=== PATIENT | male | born 1955 | race Two or more races ===

== ENCOUNTER 2025-04-27 21:32 | Inpatient (IN) | payer MEDICARE, MEDICAID ==
[~2025-04-27] VITALS: Ht 172.7 cm; Wt 84.7 kg
[2025-04-27 22:11] VITALS: PULSE 106; RESP 13; O2SAT 95
--- NOTE | 2025-04-27 22:11 | ED.PDOC ---
GI ASSESSMENT HPI Comments 69-year-old male with no past medical history was BIBA to the ER for the evaluation of generalized weakness, and black tarry stools for the past 3 days. EMS was called as the patient was found unresponsive, breathing agonal, has been experiencing intractable nausea and vomiting for the past 3 days and has been going up blackish substance, so has been experiencing black tarry stools for similar duration. EMS reports that patient's blood pressure was 60/40 mmHg on arrival, pulse was 120s, he was saturating 90s, patient received 1 L bolus and blood pressure improved to 84/60s mmHg, patient was A&O x4 per EMS, reported taking ibuprofen for the past 3 days every 4 hourly. Denies smoking or drinking, quit drinking 3 years back. On arrival to the ER, patient's systolic blood pressure was in 80s, pulse 110s, , and he was requiring 4 L oxygen supplementation. Patient is A&O x3, GCS 15/15, 2 L bolus administered in ER, 1 L by EMS Attestation note: Dr. Chan: I was the supervising attending for this ED encounter. Please see the resident's notes. I was available for questions and consultations. Differential diagnosis: As far as generalized weakness: Includes but not limited to thyroid disease, encephalopathy, electrolyte abnormality, sepsis, infection, intracranial pathology, drug adverse effects, arrhythmia, kidney insufficiency, ACS, CVA, malignancy, anemia As far as GI bleed: Diverticulitis, colitis, fistula, neoplasm, hemorrhoids, anal fissures, constipation, Crohn's disease, ulcerative colitis MDM: MDM: patient presented with the above HPI.--generalized weakness/GI bleed----workup was initiated. patient was found with the above mentioned diagnosis. the following medications were ordered: please refer to order lists of meds and tests obtained by myself Dr. Chan. Patient ED course and VS have been stabilized. Patient has been reassessed in the ED and remained in a stable condition. Pertinent incidental findings were discussed with the patient and/or family. Patient/family voices understanding and is agreeable with plan. Patient has been observed in the ED adequate length of time to insure improvement/stability. Escalation of care considered: Consideration of escalation to observation or admission Blood transfusion initiated, patient was given Protonix and fluids. Patient was ADMITTED to the medicine team for further evaluation and treatment of their presentation. All the reports of any imaging studies that were ordered by myself were reviewed by myself. Chief Complaint: GI Bleed Time Seen by MD: 21:47 Reviewed Notes: Nurses Notes, Barista Notes Allergies: Coded Allergies: NO KNOWN ALLERGIES (Unverified , 04/27/25) Information Source: Patient Mode of Arrival: EMS Timing: Days Constitutional: reports: chills, fatigue, fever EENTM: denies: blurred vision, double vision, ear bleeding, ear discharge, ear drainage, ear pain, ear ringing, eye pain, eye redness, hearing loss, mouth pain, mouth swelling, nasal discharge, nose bleeding, nose congestion, nose pain, photophobia, tearing, throat pain, throat swelling, voice changes, others Respiratory: reports: cough Cardiovascular: reports: edema Gastrointestinal: reports: abdominal pain, diarrhea, hematemesis, melena, nausea Genitourinary: denies: burning, dysuria, flank pain, frequency, hematuria, incontinence, penile discharge, penile sore, pain, testicle pain, testicle swelling, urgency, others Neurological: denies: dizziness, fainting, headache, left sided numbness, left sided weakness, numbness, paresthesia, pre-existing deficit, right sided numbn ess, right sided weakness, seizure, speech problems, tingling, tremors, weakness, others Musculoskeletal: denies: back pain, gout, joint pain, joint swelling, muscle pain, muscle stiffness, neck pain, others Integumetry: denies: bruises, change in color, change in hair/nails, dryness, laceration, lesions, lumps, rash, wounds, others Allergic/Immunocompromised: denies: Difficulty Healing, Frequent Infections, Hives, Itching, others Hematologic/Lymphatic: denies: anemia, blood clots, easy bleeding, easy bruising, swollen glands, others Endocrine: denies: excessive hunger, excessive sweating, excessive thirst, excessive urination, flushing, intolerance to cold, intolerance to heat, unexplained weight gain, unexplained weight loss, others Psychiatric: denies: anxiety, bipolar disorder, depression, hopeless, panic disorder, schizophrenia, sleepless, suicidal, others Physical Exam General Appearance: Moderate Distress HEENT: Pharynx Normal Neck: NOT DONE Respiratory: Decreased Breath Sounds Cardiovascular: Tachycardia, Other (Pedal edema) Breast Exam: Deferred Gastrointestinal: Non Tender, Normal Bowel Sounds Genitalia: Deferred Pelvic: Deferred Rectal: Deferred Extremities: Leg edema, No calf tenderness, Non-tender Neurologic: Alert, Normal Mood Cerebellar Function: NOT DONE Reflexes: None Skin: NOT DONE Lymphatic: NOT DONE Was a procedure done? Was a procedure done?: No GI differential Dx Differential Diagnosis: Gastritis/PUD, Gastroenteritis, GI hemorrhage, Ischemic Bowel, Pancreatitis, Hypovolemia X-Ray, Labs, Meds, VS Vital Signs Date Time Temp Pulse Resp B/P (MAP) Pulse Ox O2 Delivery O2 Flow Rate FiO2 04/27/25 23:00 98 18 116/59 (78) 100 04/27/25 22:11 106 13 95 Nasal Cannula* 4 36 04/27/25 22:05 97.8 107 13 119/59 (79) 95 97.8 04/27/25 21:46 97.7 110 12 85/38 93 97.7 04/27/25 21:38 97 Lab Test 04/28/25 00:27 04/27/25 23:27 04/27/25 22:02 Range/Units Lactic Acid Level 2.3 *H 3.3 *H 0.4-2.0 mmol/L Urine Color Colorless Yellow Urine Clarity Turbid H Clear Urine pH 6.0 5.0-9.0 Urine Specific [place] 1.015 1.001-1.035 Urine Protein 1+ H Negative Urine Ketones Negative Negative Urine Blood 1+ H Negative /uL Urine Nitrite Negative Negative Urine Bilirubin Negative Negative Urine Urobilinogen Normal Negative mg/dL Urine Leukocyte Esterase Negative Negative /uL Urine Glucose 1+ H Normal mg/dL Urine Opiates Screen Neg NEGATIVE Urine Fentanyl Screen Neg NEGATIVE Urine Barbiturates Screen Neg NEGATIVE Urine Phencyclidine Screen Neg NEGATIVE Urine Amphetamines Screen Neg NEGATIVE Urine Benzodiazepines Screen Neg NEGATIVE Urine Cocaine Screen Neg NEGATIVE Urine Cannabinoids Screen Neg NEGATIVE White Blood Count 11.3 H 4.4-10.8 10^3/uL Red Blood Count 1.81 L 4.5-5.90 10^6/uL Hemoglobin 5.9 *L 13.5-17.5 g/dL Hematocrit 18.1 L 41.0-53.0 % Mean Corpuscular Volume 99.7 80.0-100.0 fL Mean Corpuscular Hemoglobin 32.5 H 28.0-32.0 pg Mean Corpuscular Hemoglobin Concent 32.6 32.0-36.0 g/dL Red Cell Distribution Width 15.7 H 11.8-14.3 % Platelet Count 126 L 140-450 10^3/uL Mean Platelet Volume 9.1 6.9-10.8 fL Neutrophils (%) (Auto) 85.5 H 37.0-80.0 % Lymphocytes (%) (Auto) 8.0 L 10.0-50.0 % Monocytes (%) (Auto) 5.8 0.0-12.0 % Eosinophils (%) (Auto) 0.3 0.0-7.0 % Basophils (%) (Auto) 0.4 0.0-2.0 % Neutrophils # (Auto) 9.7 H 1.6-8.6 10 ^3/uL Lymphocytes # (Auto) 0.9 0.4-5.4 10 ^3/uL Monocytes # (Auto) 0.7 0-1.3 10 ^3/uL Eosinophils # (Auto) 0 0-0.8 10 ^3/uL Basophils # (Auto) 0 0-0.2 10 ^3/uL Nucleated Red Blood Cells 0.1 % Platelet Estimate Decreased Anisocytosis (manual) Slight Prothrombin Time 12.2 H 9.3-11.8 sec Prothrombin Time INR 1.17 H 0.9-1.15 Activated Partial Thromboplast Time 22.7 L 24.5-34.5 SEC Sodium Level 147 H 136-145 mmol/L Potassium Level 4.1 3.5-5.1 mmol/L Chloride Level 113 H 98-107 mmol/L Carbon Dioxide Level 23 20-31 mmol/L Anion Gap 11 5-15 Blood Urea Nitrogen 26 H 9-23 mg/dL Creatinine 1.05 0.700-1.30 mg/dL Glomerular Filtration Rate Calc 76 >90 mL/min BUN/Creatinine Ratio 24.8 H 10.0-20.0 Serum Glucose 149 H 74-106 mg/dL Calcium Level 7.4 L 8.7-10.4 mg/dL Total Bilirubin 0.2 0.2-1.0 mg/dL Aspartate Amino Transferase (AST) 20 13-40 U/L Alanine Aminotransferase (ALT) 20 7-40 U/L Alkaline Phosphatase 41 L 46-116 U/L Troponin I High Sensitivity 11 </=54 ng/L Total Protein 4.6 L 5.7-8.2 g/dL Albumin 2.7 L 3.2-4.8 g/dL Lipase 22 12-53 U/L Microbiology Date/Time Source Procedure Growth Status 04/27/25 22:02 Blood Blood Culture - Final NO GROWTH AFTER 5 DAYS OF INCUBATION. Complete 04/27/25 22:02 Blood Blood Culture - Final NO GROWTH AFTER 5 DAYS OF INCUBATION. Complete [facility] [id number] [address] Ph: [phone] DIAGNOSTIC IMAGING Diagnostic Imaging Report : [id number] Signed PATIENT: DARLENE CHAVIS ACCT: [id number] UNIT: [id number] : 1955 LOC: OVERFLOW ROOM / BED: [address] [place] [address] AGE / SEX: 69 / M ADM STATUS: ADM IN SERVICE 45 ORDERING PHYSICIAN: JOSÉ MANUEL MONTEZ RESIDENT PROCEDURE(s): ABPL - CT AB PEL WO CON-NO ORAL OR IV REASON: abd pain ORDER NUMBER(s): [id number], ACCESSION NUMBER(s): [id number] Exam: CT CT AB PEL WO CON-NO ORAL OR IV History: abd pain Comparison Study: None Technique: Multidetector spiral CT of the abdomen was performed from lung bases to pubic symphysis. Imaging was performed without IV contrast. Axial, coronal and sagittal multiplanar reformats were obtained from the axial data set by the technologist. Radiation Dose : 1. Abdomen/Pelvis: CTDIvol 7.45 mGy, DLP 396.72 mGy*cm. Findings: Evaluation of solid organs is limited due to lack of intravenous contrast use. Lower Chest: Patchy consolidations within the hmhob-ddeijhe-bxrn-left lower lobes. Normal heart size. Liver: Unremarkable. Gallbladder and Biliary Tree: Unremarkable Pancreas: Mild atrophy. Spleen: Unremarkable. Adrenal Glands: Unremarkable. Kidneys/Ureters: No urinary stone or obstruction. Bladder: Grossly unremarkable for degree of distention. Pelvic Organs: Unremarkable as visualized. Bowel: No bowel wall thickening or obstruction. Heterogeneous stomach contents appear to represent ingested material. No evidence of appendicitis. Distal colonic diverticulosis. Vasculature: Moderate atherosclerosis with infrarenal aortic ectasia. Lymphadenopathy: No obvious adenopathy. Peritoneum: No ascites, free air, or fluid collection. Abdominal Wall: No significant hernia. Musculoskeletal: No acute findings. Degenerative change of the spine and pelvis. IMPRESSION: 1. Feuvu-allshba-bmua-left basilar airspace disease suggesting multifocal pneumonia or aspiration pneumonitis. 2. No acute abdominopelvic findings within the limitations of a noncontrast exam. 3. Colonic diverticulosis. Radiation optimization: All CT scans at this facility use at least one of these dose optimization techniques: automated exposure control mA and/or kV adjustment per patient size (includes targeted exams where dose is matched to clinical indication) or iterative reconstruction. ATED BY: MATTEO HYATT MD DICTATED DATE/TIME: 04/28/25209 SIGNED BY: MATTEO HYATT MD SIGNED DATE/TIME: 04/28/25209 CC: X-Ray, Labs, Meds, VS Comment CT abdomen pelvis without contrast pending Chest x-ray pending at this time 3 units packed RBCs ordered IV Zosyn started 3 L bolus administered Time of 1ST Reevaluation: 00:00 Reevaluation 1ST: Improved (Blood pressure improved) Consultation: PCP Patient Education/Counseling: Diagnosis, Treatment, Prognosis, Need For Follow Up Family Education/Counseling: No Family Present SEPSIS Sepsis Screen Date sepsis recognized/suspect: Apr 27, 2025 Time Sepsis recognized/suspect: 2153 Recent Procedure: No On Antibiotic Therapy: No Respiratory Rate >20: No Heart Rate >90: Yes Temp<36 C (96.8 F) or >38.3 C: No SBP <90 or MAP <65 mmHG: No New Acute Mental Status Change: No Is the patient on CPAP, BIPAP,: No Physician Orders Electrocardigram (04/27/25 21:46) Ct Ab Pel Wo Con-No Oral Or Iv (04/27/25 21:46) Chest Xray 1 View (04/27/25 22:09) Initiate Sepsis Protocol (04/27/25 ) Sepsis (04/27/25 23:05) Vital Signs Date Time Temp Pulse Resp B/P (MAP) Pulse Ox O2 Delivery O2 Flow Rate FiO2 04/27/25 23:00 98 18 116/59 (78) 100 04/27/25 22:11 106 13 95 Nasal Cannula* 4 36 04/27/25 22:05 97.8 107 13 119/59 (79) 95 97.8 04/27/25 21:46 97.7 110 12 85/38 93 97.7 04/27/25 21:38 97 Laboratory Tests Test 04/27/25 22:02 04/28/25 00:27 Lactic Acid Level 3.3 mmol/L (0.4-2.0) *H 2.3 mmol/L (0.4-2.0) *H White Blood Count 11.3 10^3/uL (4.4-10.8) H Departure 1 Departure Time of Disposition: 23:46 Impression: Primary Impression: GI bleed Additional Impressions: Hemorrhagic shock Abdominal pain Hypoalbuminemia Blood loss anemia Pneumonia Thrombocytopenia Disposition: 09 ADMITTED INPATIENT Admit to: [facility] Condition: Guarded Discharged With: Self Critical Care Note Critical Care Time?: Yes (1 hr-critical care time only) Stability Stability form required: No Heart Score Heart Score: Heart Score Response (Comments) Value History N/A 0 EKG N/A 0 Age N/A 0 Risk Factors N/A 0 Troponin N/A 0 Total 0 JOSÉ MANUEL MONTEZ RESIDENT Apr 27, 2025 22:11 HALEIGH CHAN DO Apr 27, 2025 23:48
[2025-04-27] MEDS: SODIUM CHLORIDE 0.9% 2,000 ML IV ONE ×2 (22:15→23:10)
[2025-04-27] MEDS: PANTOPRAZOLE 40 MG/10 ML VIAL INJ IV ONE (22:15)
[2025-04-27 22:36] LABS: Hematocrit 18.1 % (41.0-53.0); Mean Corpuscular Hemoglobin 32.5 pg (28.0-32.0); Mean Corpuscular Volume 99.7 fL (80.0-100.0); Nucleated Red Blood Cells % 0.1 %
[2025-04-27 22:50] LABS: Hemoglobin 5.9 g/dL (13.5-17.5)
[2025-04-27 23:00] LABS: Alanine Aminotransferase 20 U/L (7-40); Anion Gap 11 (5-15); BUN/Creatinine Ratio 24.8 (10.0-20.0); Carbon Dioxide 23 mmol/L (20-31); Lipase 22 U/L (12-53); Potassium 4.1 mmol/L (3.5-5.1)
[2025-04-27 23:02] LABS: Lactic Acid w/Reflex 3.3 mmol/L (0.4-2.0)
[2025-04-27 23:04] LABS: Albumin 2.7 g/dL (3.2-4.8); Alkaline Phosphatase 41 U/L (46-116); Bilirubin, Total 0.2 mg/dL (0.2-1.0); Blood Urea Nitrogen 26 mg/dL (9-23); Calcium 7.4 mg/dL (8.7-10.4); Chloride 113 mmol/L (98-107); Glucose 149 mg/dL (74-106); Sodium 147 mmol/L (136-145); Total Protein 4.6 g/dL (5.7-8.2)
[2025-04-27 23:15] LABS: Anisocytosis Slight
[2025-04-27 23:51] LABS: Urine Protein, UAD 1+ (Negative)
[2025-04-28] VITALS (15 sets, daily range): BP systolic 103–145; BP diastolic 50–94; PULSE 84–117; RESP 13–18; TEMP 97.6–99.6; O2SAT 95–100
[2025-04-28] MEDS: ALBUMIN 25% 100 ML IV ONE
[2025-04-28] MEDS: PIPERACILLIN-TAZOB 3.375GM 100 ML IV ONE
[2025-04-28 00:07] LABS: Barbiturate Scree,Urine Neg (NEGATIVE); Opiate Scree,Urine Neg (NEGATIVE); Phencyclidine Screen, Urine Neg (NEGATIVE)
[2025-04-28 00:08] LABS: Amphetamine Screen, Urine Neg (NEGATIVE); Benzodiazephine Screen, Urine Neg (NEGATIVE); Cannabinoid Screen, Urine Neg (NEGATIVE); Cocaine Screen, Urine Neg (NEGATIVE)
[2025-04-28] MEDS ORDERED: MORPHINE SULFATE INJ 2 MG/ml SYRG IV PRN (00:45)
[2025-04-28] MEDS ORDERED: NITROGLYCERIN 0.4 MG SL TAB SL PRN (00:45)
[2025-04-28] MEDS: PANTOPRAZOLE 40mg/50ML NS AE 50 ML IV SCH ×2 (01:08→14:15)
[2025-04-28 01:12] LABS: INR 1.17 (0.9-1.15); Partial Thromboplastin Time 22.7 SEC (24.5-34.5); Prothrombin Time 12.2 sec (9.3-11.8)
--- NOTE | 2025-04-28 01:32 | DVH ---
CHEST RADIOGRAPH Indication: hypoxic Technique: Single frontal view of the chest was obtained COMPARISON: None FINDINGS: Lines and Tubes: None Lungs: Chronic appearing bilateral interstitial pulmonary markings. No evidence of focal consolidati on. Pleura: No effusion. No pneumothorax. Cardiomediastinal contours: Unremarkable Bones: Unremarkable IMPRESSION: 1. Chronic appearing bilateral interstitial pulmonary markings. 2. No evidence of acute cardiopulmonary process.
--- NOTE | 2025-04-28 02:12 | DVH ---
Exam: CT CT AB PEL WO CON-NO ORAL OR IV History: abd pain Comparison Study: None Technique: Multidetector spiral CT of the abdomen was performed from lung bases to pubic symphysis. I maging was performed without IV contrast. Axial, coronal and sagittal multiplanar reformats were obta ined from the axial data set by the technologist. Radiation Dose : 1. Abdomen/Pelvis: CTDIvol 7.45 mGy, DLP 396.72 mGy*cm. Findings: Evaluation of solid organs is limited due to lack of intravenous contrast use. Lower Chest: Patchy consolidations within the qfnid-krhtimc-ccrt-left lower lobes. Normal heart size . Liver: Unremarkable. Gallbladder and Biliary Tree: Unremarkable Pancreas: Mild atrophy. Spleen: Unremarkable. Adrenal Glands: Unremarkable. Kidneys/Ureters: No urinary stone or obstruction. Bladder: Grossly unremarkable for degree of distention. Pelvic Organs: Unremarkable as visualized. Bowel: No bowel wall thickening or obstruction. Heterogeneous stomach contents appear to represent i ngested material. No evidence of appendicitis. Distal colonic diverticulosis. Vasculature: Moderate atherosclerosis with infrarenal aortic ectasia. Lymphadenopathy: No obvious adenopathy. Peritoneum: No ascites, free air, or fluid collection. Abdominal Wall: No significant hernia. Musculoskeletal: No acute findings. Degenerative change of the spine and pelvis. IMPRESSION: 1. Stwfi-xhztkvw-xqkn-left basilar airspace disease suggesting multifocal pneumonia or aspiration pne umonitis. 2. No acute abdominopelvic findings within the limitations of a noncontrast exam. 3. Colonic diverticulosis. Radiation optimization: All CT scans at this facility use at least one of these dose optimization som hniques: automated exposure control mA and/or kV adjustment per patient size (includes targeted exam s where dose is matched to clinical indication) or iterative reconstruction.
--- NOTE | 2025-04-28 05:03 | DVHHP2 ---
History of Present Illness Reason for Visit: GI bleed History of Present Illness 69-year-old male presents for evaluation of GI bleed. Patient reports a three day history of having black tarry stools. Over the past couple of days he has been vomiting coffee-ground emesis as well. Denies abdominal pain. No fever or chills. Past Medical History Denies Past Surgical History Denies Family History Noncontributory Smoke: No ALCOHOL: none Drugs: None Lives: with Family Review of Systems Review of Systems Constituitional: Negative for fever HENT: Negative for Headache, Negative for Sore Throat Eyes: Negative for pain and change in vision Respirartory: Negative for Shortness of Breath Cardiovascular: Negative for Chest Pain Gastrointestinal: Negative for abdominal pain, swelling Endocrine: Negative for polyuria, Polydipsia Genitourinary: Negative for dysuria Musculoskeletal: Negative for skeletal pain Skin Negative for rash Neurological: Negative for headache and weakness All other systems reviewed and negative are negative otherwise addressed in HPI. Allergies: Coded Allergies: NO KNOWN ALLERGIES (Unverified , 04/27/25) Medications Current Medications Medications Dose Ordered Sig/Dorene Route Start Time Stop Time Status Last Admin Dose Admin Nitroglycerin 0.4 mg Q5MINP PRN SL 04/28/25 00:45 Morphine Sulfate 2 mg Q30M PRN IV 04/28/25 00:45 Pantoprazole Sodium 50 ml @ 10 mls/hr Q5H IV 04/28/25 00:45 04/28/25 01:08 10 MLS/HR Ceftriaxone Sodium 50 ml @ 100 mls/hr DAILY@09 IV 04/28/25 09:00 Ondansetron HCl 4 mg Q4HP PRN IV 04/28/25 00:45 Azithromycin 250 ml @ 125 mls/hr DAILY IV 04/28/25 10:00 Exam Vital Signs Vital Signs Date Time Temp Pulse Resp B/P (MAP) Pulse Ox O2 Delivery O2 Flow Rate FiO2 04/28/25 04:25 98.6 87 16 126/63 98.6 04/28/25 03:04 100 Nasal Cannula* 2 28 Exam Gen: 69-year-old male in mild distress. Skin: Warm, dry, normal color and texture, no rash. HEENT: Normocephalic atraumatic, mucous membranes moist and pink. Neck: Cervical and supraclavicular nodes normal without enlargement, trachea is midline, thyroid gland is normal without masses. Pulmonary: Clear to auscultation and percussion bilaterally. Cardiac: Regular rate and rhythm. No murmur Abdomen: Soft, nontender, nondistended, bowel sounds present all 4 quadrants, no guarding, no rigidity, no organomegaly. Extremities: No cyanosis, clubbing, no edema Neuro: Cranial nerves II through XII grossly intact, normal affect and speech, no focal motor deficits. Labs/Xrays ORDERING PHYSICIAN: JOSÉ MANUEL MONTEZ RESIDENT PROCEDURE(s): ABPL - CT AB PEL WO CON-NO ORAL OR IV REASON: abd pain ORDER NUMBER(s): [id number], ACCESSION NUMBER(s): [id number] Exam: CT CT AB PEL WO CON-NO ORAL OR IV History: abd pain Comparison Study: None Technique: Multidetector spiral CT of the abdomen was performed from lung bases to pubic symphysis. Imaging was performed without IV contrast. Axial, coronal and sagittal multiplanar reformats were obtained from the axial data set by the technologist. Radiation Dose : 1. Abdomen/Pelvis: CTDIvol 7.45 mGy, DLP 396.72 mGy*cm. Findings: Evaluation of solid organs is limited due to lack of intravenous contrast use. Lower Chest: Patchy consolidations within the phdqx-bilkwuv-bhuk-left lower lobes. Normal heart size. Liver: Unremarkable. Gallbladder and Biliary Tree: Unremarkable Pancreas: Mild atrophy. Spleen: Unremarkable. Adrenal Glands: Unremarkable. Kidneys/Ureters: No urinary stone or obstruction. Bladder: Grossly unremarkable for degree of distention. Pelvic Organs: Unremarkable as visualized. Bowel: No bowel wall thickening or obstruction. Heterogeneous stomach contents appear to represent ingested material. No evidence of appendicitis. Distal colonic diverticulosis. Vasculature: Moderate atherosclerosis with infrarenal aortic ectasia. Lymphadenopathy: No obvious adenopathy. Peritoneum: No ascites, free air, or fluid collection. Abdominal Wall: No significant hernia. Musculoskeletal: No acute findings. Degenerative change of the spine and pelvis. IMPRESSION: 1. Sezcu-cftowit-anam-left basilar airspace disease suggesting multifocal pneumonia or aspiration pneumonitis. 2. No acute abdominopelvic findings within the limitations of a noncontrast exam. 3. Colonic diverticulosis. Radiation optimization: All CT scans at this facility use at least one of these dose optimization techniques: automated exposure control mA and/or kV adjustment per patient size (includes targeted exams where dose is matched to clinical indication) or iterative reconstruction. ATED BY: MATTEO HYATT MD ORDERING PHYSICIAN: JOSÉ MANUEL MONTEZ RESIDENT PROCEDURE(s): CXR1 - CHEST XRAY 1 VIEW REASON: hypoxic ORDER NUMBER(s): [id number], ACCESSION NUMBER(s): [id number] CHEST RADIOGRAPH Indication: hypoxic Technique: Single frontal view of the chest was obtained COMPARISON: None FINDINGS: Lines and Tubes: None Lungs: Chronic appearing bilateral interstitial pulmonary markings. No evidence of focal consolidation. Pleura: No effusion. No pneumothorax. Cardiomediastinal contours: Unremarkable Bones: Unremarkable IMPRESSION: 1. Chronic appearing bilateral interstitial pulmonary markings. 2. No evidence of acute cardiopulmonary process. Labs Test 04/28/25 00:27 04/27/25 23:27 04/27/25 22:02 Range/Units Lactic Acid Level 2.3 *H 0.4-2.0 mmol/L Urine Color Colorless Yellow Urine Clarity Turbid H Clear Urine pH 6.0 5.0-9.0 Urine Specific [place] 1.015 1.001-1.035 Urine Protein 1+ H Negative Urine Ketones Negative Negative Urine Blood 1+ H Negative /uL Urine Nitrite Negative Negative Urine Bilirubin Negative Negative Urine Urobilinogen Normal Negative mg/dL Urine Leukocyte Esterase Negative Negative /uL Urine Glucose 1+ H Normal mg/dL Urine Opiates Screen Neg NEGATIVE Urine Fentanyl Screen Neg NEGATIVE Urine Barbiturates Screen Neg NEGATIVE Urine Phencyclidine Screen Neg NEGATIVE Urine Amphetamines Screen Neg NEGATIVE Urine Benzodiazepines Screen Neg NEGATIVE Urine Cocaine Screen Neg NEGATIVE Urine Cannabinoids Screen Neg NEGATIVE White Blood Count 11.3 H 4.4-10.8 10^3/uL Red Blood Count 1.81 L 4.5-5.90 10^6/uL Hemoglobin 5.9 *L 13.5-17.5 g/dL Hematocrit 18.1 L 41.0-53.0 % Mean Corpuscular Volume 99.7 80.0-100.0 fL Mean Corpuscular Hemoglobin 32.5 H 28.0-32.0 pg Mean Corpuscular Hemoglobin Concent 32.6 32.0-36.0 g/dL Red Cell Distribution Width 15.7 H 11.8-14.3 % Platelet Count 126 L 140-450 10^3/uL Mean Platelet Volume 9.1 6.9-10.8 fL Neutrophils (%) (Auto) 85.5 H 37.0-80.0 % Lymphocytes (%) (Auto) 8.0 L 10.0-50.0 % Monocytes (%) (Auto) 5.8 0.0-12.0 % Eosinophils (%) (Auto) 0.3 0.0-7.0 % Basophils (%) (Auto) 0.4 0.0-2.0 % Neutrophils # (Auto) 9.7 H 1.6-8.6 10 ^3/uL Lymphocytes # (Auto) 0.9 0.4-5.4 10 ^3/uL Monocytes # (Auto) 0.7 0-1.3 10 ^3/uL Eosinophils # (Auto) 0 0-0.8 10 ^3/uL Basophils # (Auto) 0 0-0.2 10 ^3/uL Nucleated Red Blood Cells 0.1 % Platelet Estimate Decreased Anisocytosis (manual) Slight Prothrombin Time 12.2 H 9.3-11.8 sec Prothrombin Time INR 1.17 H 0.9-1.15 Activated Partial Thromboplast Time 22.7 L 24.5-34.5 SEC Sodium Level 147 H 136-145 mmol/L Potassium Level 4.1 3.5-5.1 mmol/L Chloride Level 113 H 98-107 mmol/L Carbon Dioxide Level 23 20-31 mmol/L Anion Gap 11 5-15 Blood Urea Nitrogen 26 H 9-23 mg/dL Creatinine 1.05 0.700-1.30 mg/dL Glomerular Filtration Rate Calc 76 >90 mL/min BUN/Creatinine Ratio 24.8 H 10.0-20.0 Serum Glucose 149 H 74-106 mg/dL Calcium Level 7.4 L 8.7-10.4 mg/dL Total Bilirubin 0.2 0.2-1.0 mg/dL Aspartate Amino Transferase (AST) 20 13-40 U/L Alanine Aminotransferase (ALT) 20 7-40 U/L Alkaline Phosphatase 41 L 46-116 U/L Troponin I High Sensitivity 11 </=54 ng/L Total Protein 4.6 L 5.7-8.2 g/dL Albumin 2.7 L 3.2-4.8 g/dL Lipase 22 12-53 U/L SEPSIS Sepsis Screen Date sepsis recognized/suspect: Apr 27, 2025 Time Sepsis recognized/suspect: 2212 Recent Procedure: No On Antibiotic Therapy: No Respiratory Rate >20: No Heart Rate >90: Yes Temp<36 C (96.8 F) or >38.3 C: No SBP <90 or MAP <65 mmHG: No New Acute Mental Status Change: No Is the patient on CPAP, BIPAP,: No Physician Orders Electrocardigram (04/27/25 21:46) Ct Ab Pel Wo Con-No Oral Or Iv (04/27/25 21:46) Blood Culture (04/27/25 22:09) Type And Screen (04/27/25 22:) Chest Xray 1 View (04/27/25 22:09) Initiate Sepsis Protocol (04/27/25 ) Sepsis (04/27/25 23:05) Admit (04/28/25 00:38) Nitroglycerin Sublingual (Ntrostat Subli (04/28/25 00:45) Morphine Sulfate Injection (04/28/25 00:45) Stat Ekg For Chest Pain (04/28/25 00:38) Notify Md Of Changes From Base (04/28/25 00:38) Handbook Writer For 24 Hours (04/28/25 00:38) Emergency Dysrhythmia Protocol (04/28/25 00:38) Rhythm Strips Once Every Shift (04/28/25 00:38) Oxygen By Nasal Cannula (04/28/25 00:38) * [facility] Graduate Teaching Assistant (04/28/25 00:38) Pantoprazole 40mg/50ml Ns Ae (Protonix) (04/28/25 00:45) Ceftriaxone 1gm/50ml (Rocephin) (04/28/25 09:00) Ondansetron Hcl (Zofran) (04/28/25 00:45) Complete Blood Count (04/29/25 04:00) Comprehensive Metabolic Panel (04/29/25 04:00) Npo (Nothing By Mouth) Diet (04/28/25 Breakfast) Bedrest With Bathroom Privileg (04/28/25 00:38) Azithromycin 500mg/ 250ml (Zithromax 50 (04/28/25 10:00) Vital Signs Date Time Temp Pulse Resp B/P (MAP) Pulse Ox O2 Delivery O2 Flow Rate FiO2 04/28/25 04:25 98.6 87 16 126/63 98.6 04/28/25 03:04 104 16 100 Nasal Cannula* 2 28 04/28/25 03:04 98.7 104 18 118/69 (85) 100 98.7 04/28/25 02:10 92 13 120/4 (42) 100 04/28/25 02:10 98.5 92 13 120/64 98.5 04/28/25 01:47 98.9 92 15 108/50 98.9 04/28/25 01:30 85 17 108/50 (69) 99 04/27/25 23:00 98 18 116/59 (78) 100 04/27/25 22:11 106 13 95 Nasal Cannula* 4 36 04/27/25 22:05 97.8 107 13 119/59 (79) 95 97.8 04/27/25 21:46 97.7 110 12 85/38 93 97.7 04/27/25 21:38 97 Laboratory Tests Test 04/27/25 22:02 04/28/25 00:27 Lactic Acid Level 3.3 mmol/L (0.4-2.0) *H 2.3 mmol/L (0.4-2.0) *H White Blood Count 11.3 10^3/uL (4.4-10.8) H Medications Medications Dose Ordered Sig/Dorene Route Start Time Stop Time Status Last Admin Dose Admin Albumin Human 100 ml @ 100 mls/hr ONCE ONCE IV 04/28/25 00:00 04/28/25 00:59 DC 04/28/25 00:00 100 MLS/HR Pantoprazole Sodium 50 ml @ 10 mls/hr Q5H IV 04/28/25 00:45 04/28/25 01:08 10 MLS/HR Pantoprazole Sodium 80 mg ONCE ONCE IV 04/27/25 22:15 04/27/25 23:04 DC 04/27/25 22:15 80 MG Piperacillin Sod/ Tazobactam Sod 100 ml @ 100 mls/hr ONCE ONCE IV 04/28/25 00:00 04/28/25 00:59 DC 04/28/25 00:00 100 MLS/HR Sodium Chloride 2,000 ml @ 1,000 mls/hr Q2H ONCE IV 04/27/25 23:15 04/28/25 01:14 DC 04/27/25 23:10 1,000 MLS/HR Assessment/Plan Assessment/Plan Assessment GI bleed Questionable pneumonia Severe anemia Liver disease Plan Admit the patient to telemetry to the hospitalist Protonix drip NPO GI consult Rocephin/azithromycin Med nebs Maintenance IV fluids Continue treatment per orders. Plan discussed with: Patient My Orders Orders - NILO CORREA Procedure Category Date Status Time Admit ADMIT 04/28/25 Transmitted 00:38 Nitroglycerin PHA 04/28/25 In Process Sublingual (Ntrostat 00:45 Morphine Sulfate PHA 04/28/25 In Process Injection 00:45 Stat Ekg For Chest ELVIA 04/28/25 In Process Pain 00:38 Notify Of Changes ELV[facility] 04/28/25 In Process From Base 00:38 Handbook Writer For ELVIA 04/28/25 In Process 24 Hours 00:38 Emergency Dysrhythmia ELV[facility] 04/28/25 In Process Protocol 00:38 Rhythm Strips Once ELVIA 04/28/25 In Process Every Shift 00:38 Oxygen By Nasal RT 04/28/25 Transmitted Cannula 00:38 * [facility] Graduate Teaching Assistant CONS 04/28/25 Transmitted 00:38 Pantoprazole PHA 04/28/25 In Process 40mg/50ml Ns Ae 00:45 Ceftriaxone 1gm/50ml PHA 04/28/25 In Process (Rocephin) 09:00 Ondansetron Hcl PHA 04/28/25 In Process (Zofran) 00:45 Complete Blood Count LAB 04/29/25 Verified 04:00 Comprehensive LAB 04/29/25 Verified Metabolic Panel 04:00 Npo (Nothing By DIET 04/28/25 Transmitted Mouth) Diet Breakfast Bedrest With Bathroom ELVIA 04/28/25 In Process Privileg 00:38 Azithromycin 500mg/ PHA 04/28/25 In Process 250ml (Zithromax 50 10:00 Date of Service: Apr 28, 2025 Billing Provider: NILO CORREA Common Visit Codes: [id number] INP/OBS CARE (HIGH) NILO CORREA Apr 28, 2025 05:03
[2025-04-28 09:06] LABS: Hematocrit 27.1 % (41.0-53.0); Hemoglobin 8.8 g/dL (13.5-17.5)
[2025-04-28] MEDS: AZITHROMYCIN 500MG/ 250ML 250 ML IV SCH (11:53)
--- NOTE | 2025-04-28 13:25 | DVHPN2 ---
Reviewed: Care Plan, H&P, Labs, Medications, Previous Orders, Radiology Changes from previous H/P or p: No Changes Objective Vitals Vital Signs Date Time Temp Pulse Resp B/P (MAP) Pulse Ox O2 Delivery O2 Flow Rate FiO2 04/28/25 12:39 97.6 117 16 103/60 (74) 97 97.6 04/28/25 03:04 Nasal Cannula* 2 28 Intake/Output Intake and Output 04/28/25 07:00 Intake Total 600 ml Output Total 210 ml Balance 390 ml Intake Blood Product 300 ml Other 300 ml Output Urine Total 210 ml Medications Current Medications Medications Dose Ordered Sig/Dorene Route Start Time Stop Time Status Last Admin Dose Admin Nitroglycerin 0.4 mg Q5MINP PRN SL 04/28/25 00:45 Morphine Sulfate 2 mg Q30M PRN IV 04/28/25 00:45 Pantoprazole Sodium 50 ml @ 10 mls/hr Q5H IV 04/28/25 00:45 04/28/25 11:58 10 MLS/HR Ceftriaxone Sodium 50 ml @ 100 mls/hr DAILY@09 IV 04/28/25 09:00 04/28/25 09:38 100 MLS/HR Ondansetron HCl 4 mg Q4HP PRN IV 04/28/25 00:45 Azithromycin 250 ml @ 125 mls/hr DAILY IV 04/28/25 10:00 04/28/25 11:53 125 MLS/HR Laboratory Results Laboratory Tests 04/27/25 22:02 04/28/25 08:48 Chemistry Test 04/27/25 22:02 Albumin 2.7 g/dL (3.2-4.8) L Calcium Level 7.4 mg/dL (8.7-10.4) L Total Protein 4.6 g/dL (5.7-8.2) L Coagulation Test 04/27/25 22:02 Prothrombin Time 12.2 sec (9.3-11.8) H Prothrombin Time INR 1.17 (0.9-1.15) H Activated Partial Thromboplast Time 22.7 SEC (24.5-34.5) L Lipid panel Test 04/27/25 22:02 Lipase 22 U/L (12-53) LFT Test 04/27/25 22:02 Alanine Aminotransferase (ALT) 20 U/L (7-40) Alkaline Phosphatase 41 U/L (46-116) L Aspartate Amino Transferase (AST) 20 U/L (13-40) Total Bilirubin 0.2 mg/dL (0.2-1.0) Urinalysis Test 04/27/25 23:27 Urine Color Colorless (Yellow) Urine Clarity Turbid (Clear) H Urine pH 6.0 (5.0-9.0) Urine Specific [place] 1.015 (1.001-1.035) Urine Protein 1+ (Negative) H Urine Ketones Negative (Negative) Urine Blood 1+ /uL (Negative) H Urine Nitrite Negative (Negative) Urine Bilirubin Negative (Negative) Urine Urobilinogen Normal mg/dL (Negative) Urine Leukocyte Esterase Negative /uL (Negative) Urine Glucose 1+ mg/dL (Normal) H Labs and/or images reviewed: Labs reviewed by me, Image(s) reviewed by me Assessment/Plan Assessment/Plan Severe Blood loss anemia hemoglobin 5.9 improved to 8.8 after 2 unit of RBC transfusion Lower GI bleed consult for Dr. Zandra Ott for possible endoscopy Multifocal pneumonia: Rocephin azithromycin: Adriana test pending Flu test pending Malnutrition Time spent 70 minutes Advanced care planning time 20 minutes Patient is full code Plan discussed with: Patient My Orders Orders - SARA HUYNH MD Procedure Category Date Status Time Covid19 Antigen Gabriela LAB 04/28/25 Logged Rapid Influenza A&B LAB 04/28/25 Logged 13:19 Date of Service: Apr 28, 2025 Billing Provider: SARA HUYNH MD Common Visit Codes: [id number] CARE 30-74 MIN SARA HUYNH MD Apr 28, 2025 13:25
--- NOTE | 2025-04-28 13:29 | DVHINCON2 ---
GI Consult Consult Note GI consult note Date of Consultation: 04/28/2025 Chief Complaint: GI bleed Referring Physician: Turner MAURICIO H&P: 69-year-old male admitted with complains of generalized weakness and black tarry stools for the past three days. Patient also having nausea and vomiting for the past three days, with coffee-ground emesis. No nausea or vomiting today. Denies abdominal pain. Patient has history of GERD. No EGD or colonoscopy in past. Denies blood thinners. Patient admits to taking ibuprofen every 4 hours for the past three days Past Medical History: Denies Past Surgical History: Denies Social History: NO smoking, quit ETOH and denies use of illegal drugs. Family History: Noncontributory Review of Systems: Constitutional: no fever, chill, weight loss HEENT: no eye pain, no hearing loss, no oral lesion, no scleral icterus Heart: no chest pain, no chest pressure Lung: no cough, no dyspnea with exertion Abdomen: see HPI Physical exam: General: NAD, AAOX3 Chest: lung roberts clear to auscultation Heart: RRR, no murmur Abdomen: non-distended, no tenderness to palpation, +BS Labs: Labs Test 04/28/25 08:48 04/28/25 00:27 04/27/25 23:27 04/27/25 22:02 Range/Units Hemoglobin 8.8 #L 13.5-17.5 g/dL Hematocrit 27.1 #L 41.0-53.0 % Lactic Acid Level 2.3 *H 0.4-2.0 mmol/L Urine Color Colorless Yellow Urine Clarity Turbid H Clear Urine pH 6.0 5.0-9.0 Urine Specific [place] 1.015 1.001-1.035 Urine Protein 1+ H Negative Urine Ketones Negative Negative Urine Blood 1+ H Negative /uL Urine Nitrite Negative Negative Urine Bilirubin Negative Negative Urine Urobilinogen Normal Negative mg/dL Urine Leukocyte Esterase Negative Negative /uL Urine Glucose 1+ H Normal mg/dL Urine Opiates Screen Neg NEGATIVE Urine Fentanyl Screen Neg NEGATIVE Urine Barbiturates Screen Neg NEGATIVE Urine Phencyclidine Screen Neg NEGATIVE Urine Amphetamines Screen Neg NEGATIVE Urine Benzodiazepines Screen Neg NEGATIVE Urine Cocaine Screen Neg NEGATIVE Urine Cannabinoids Screen Neg NEGATIVE White Blood Count 11.3 H 4.4-10.8 10^3/uL Red Blood Count 1.81 L 4.5-5.90 10^6/uL Mean Corpuscular Volume 99.7 80.0-100.0 fL Mean Corpuscular Hemoglobin 32.5 H 28.0-32.0 pg Mean Corpuscular Hemoglobin Concent 32.6 32.0-36.0 g/dL Red Cell Distribution Width 15.7 H 11.8-14.3 % Platelet Count 126 L 140-450 10^3/uL Mean Platelet Volume 9.1 6.9-10.8 fL Neutrophils (%) (Auto) 85.5 H 37.0-80.0 % Lymphocytes (%) (Auto) 8.0 L 10.0-50.0 % Monocytes (%) (Auto) 5.8 0.0-12.0 % Eosinophils (%) (Auto) 0.3 0.0-7.0 % Basophils (%) (Auto) 0.4 0.0-2.0 % Neutrophils # (Auto) 9.7 H 1.6-8.6 10 ^3/uL Lymphocytes # (Auto) 0.9 0.4-5.4 10 ^3/uL Monocytes # (Auto) 0.7 0-1.3 10 ^3/uL Eosinophils # (Auto) 0 0-0.8 10 ^3/uL Basophils # (Auto) 0 0-0.2 10 ^3/uL Nucleated Red Blood Cells 0.1 % Platelet Estimate Decreased Anisocytosis (manual) Slight Prothrombin Time 12.2 H 9.3-11.8 sec Prothrombin Time INR 1.17 H 0.9-1.15 Activated Partial Thromboplast Time 22.7 L 24.5-34.5 SEC Sodium Level 147 H 136-145 mmol/L Potassium Level 4.1 3.5-5.1 mmol/L Chloride Level 113 H 98-107 mmol/L Carbon Dioxide Level 23 20-31 mmol/L Anion Gap 11 5-15 Blood Urea Nitrogen 26 H 9-23 mg/dL Creatinine 1.05 0.700-1.30 mg/dL Glomerular Filtration Rate Calc 76 >90 mL/min BUN/Creatinine Ratio 24.8 H 10.0-20.0 Serum Glucose 149 H 74-106 mg/dL Calcium Level 7.4 L 8.7-10.4 mg/dL Total Bilirubin 0.2 0.2-1.0 mg/dL Aspartate Amino Transferase (AST) 20 13-40 U/L Alanine Aminotransferase (ALT) 20 7-40 U/L Alkaline Phosphatase 41 L 46-116 U/L Troponin I High Sensitivity 11 </=54 ng/L Total Protein 4.6 L 5.7-8.2 g/dL Albumin 2.7 L 3.2-4.8 g/dL Lipase 22 12-53 U/L Imaging: CT abdomen pelvis IMPRESSION: 1. Ckcdf-igcxblo-wxvh-left basilar airspace disease suggesting multifocal pneumonia or aspiration pneumonitis. 2. No acute abdominopelvic findings within the limitations of a noncontrast exam. 3. Colonic diverticulosis. Assessment: GI bleed Severe anemia Plan: Discussed with Dr. Ott - Pt will be scheduled for an EGD today 04/28/2025. Pt was informed of the risks (bleeding, infection, perforation, reaction to sedation medications and cardiopulmonary arrest) and benefit and is agreeable to undergo the procedures. Discussed plan with patient, family at bedside and RN Thank you for this consult Date of Service: Apr 28, 2025 Billing Provider: DOROTHEA HUYNH Common Visit Codes: CONSULT ONLY Consultation Codes: [id number] CONSULT <60MIN DOROTHEA HUYNH Apr 28, 2025 13:29
[2025-04-28] MEDS ORDERED: fentaNYL CITRATE 100 MCG/2 ML VL ONE (13:42)
[2025-04-28] MEDS ORDERED: PROPOFOL 10 MG/ML 20 ML IV ONE (13:43)
[2025-04-28] MEDS ORDERED: PHENYLEPHRINE HCL 10 MG/ML VL ONE (14:01)
--- NOTE | 2025-04-28 14:10 | DVHOP2 ---
Operative Report DATE OF OPERATION: 04/28/25 PROCEDURE: Upper Endoscopy with biopsy. PREOPERATIVE INDICATION: The patient is a 69 -year-old male undergoing endoscopy for melena and severe anemia and suspected recent sprain use POSTOPERATIVE DIAGNOSES: 1. Large deep 5 cm gastric ulcer was seen in the pre-pyloric area extending into the angularis with over line black eschars and a few red spots but no visible vessel and no active bleeding 2. Mild pre-pyloric antral gastritis with some gastric erosions and tiny ulcers otherwise normal examination up to the 2nd and 3rd part of the duodenal 3. Patient had moderate amount of coffee-ground and old blood in the stomach related to oozing from the gastric ulcer PROCEDURE PERFORMED BY: Janett Ott GI NURSE: Lissa SCOPE: Olympus videoendoscope. ASA CLASS: 3 PREOPERATIVE MEDICATIONS: Mac jani, Dr. Galvan PROCEDURE IN DETAIL: After obtaining an informed consent, the patient was placed on left lateral decubitus position. The patient was then sedated with the above medications. A bite block was placed between his teeth. The endoscope was then passed through the oropharynx, into the esophagus, and through the stomach and pylorus up to the second and third part of the duodenum. The endoscope was then withdrawn. The 2nd and 3rd part of the duodenal and the duodenal bulb were normal. Duodenal biopsies were obtained The pre-pyloric area antrum showed moderate gastritis with pre-pyloric antral gastric tiny ulcers. There was a large deep 5 cm antral gastric ulcer extending into the angularis with raised edges. Gastric biopsies were obtained from here area Patient had some red spots and overlying eschar over the ulcer however there was no visible vessel or active bleeding. There was moderate amount of coffee-grounds within the stomach likely related to oozing from the large gastric ulcer The endoscope was then withdrawn into the distal esophagus. There was no sign ificant hiatal hernia or esophagitis. The remaining distal and proximal esophagus and oropharynx were unremarkable. The patient tolerated the procedure well without difficulty. COMPLICATIONS : None SPECIMENS: Duodenal biopsies Gastric ulcer edge biopsies and antral biopsies DISPOSITION: Transfer back to the floor Stable PLAN: 1. Await for biopsy result 2. Will place pt on Protonix 40 mg IV q.6 hours 3. Carafate suspension 1 g p.o. 4 times a day 4. Ice chips and clear liquids and advance to full liquid if tolerated 5. DC aspirin NSAIDs smoking alcohol 6. Patient will likely need a repeat endoscopy in 6-8 weeks to ensure healing of the ulcer and can follow up in my office with the same JANETT OTT MD Apr 28, 2025 14:10
[2025-04-28] MEDS: SUCRALFATE 1 GM/10 ML ORAL SUSP PO SCH (18:48)
[2025-04-29] VITALS (11 sets, daily range): BP systolic 82–151; BP diastolic 40–82; PULSE 73–113; RESP 16–20; TEMP 98–100; O2SAT 95–100
[2025-04-29 06:48] LABS: Hematocrit 20.8 % (41.0-53.0); Hemoglobin 7.2 g/dL (13.5-17.5); Mean Corpuscular Hemoglobin 32.4 pg (28.0-32.0); Mean Corpuscular Volume 92.8 fL (80.0-100.0); Nucleated Red Blood Cells % 0.1 %
[2025-04-29 06:55] LABS: Alanine Aminotransferase 15 U/L (7-40); Anion Gap 10 (5-15); BUN/Creatinine Ratio 22.7 (10.0-20.0); Blood Urea Nitrogen 17 mg/dL (9-23); Carbon Dioxide 23 mmol/L (20-31); Glucose 85 mg/dL (74-106); Potassium 4.1 mmol/L (3.5-5.1)
[2025-04-29 06:56] LABS: Bilirubin, Total 0.5 mg/dL (0.2-1.0)
[2025-04-29 06:57] LABS: Albumin 3.0 g/dL (3.2-4.8); Alkaline Phosphatase 39 U/L (46-116); Calcium 7.8 mg/dL (8.7-10.4); Chloride 113 mmol/L (98-107); Sodium 146 mmol/L (136-145); Total Protein 5.0 g/dL (5.7-8.2)
--- NOTE | 2025-04-29 11:16 | DVHPN2 ---
Reviewed: Care Plan, H&P, Labs, Medications, Previous Orders, Radiology Changes from previous H/P or p: No Changes Objective Vitals Vital Signs Date Time Temp Pulse Resp B/P (MAP) Pulse Ox O2 Delivery O2 Flow Rate FiO2 04/29/25 09:00 98.1 97 16 133/79 (97) 96 98.1 04/28/25 20:00 Nasal Cannula* 2 28 Intake/Output Intake and Output 04/29/25 07:00 Intake Total 2360 ml Balance 2360 ml Intake Oral 1700 ml IV Total 360 ml Blood Product 300 ml # Voids 6 # Bowel Movements 4 Medications Current Medications Medications Dose Ordered Sig/Dorene Route Start Time Stop Time Status Last Admin Dose Admin Nitroglycerin 0.4 mg Q5MINP PRN SL 04/28/25 00:45 Morphine Sulfate 2 mg Q30M PRN IV 04/28/25 00:45 Ceftriaxone Sodium 50 ml @ 100 mls/hr DAILY@09 IV 04/28/25 09:00 04/29/25 09:21 100 MLS/HR Ondansetron HCl 4 mg Q4HP PRN IV 04/28/25 00:45 Azithromycin 250 ml @ 125 mls/hr DAILY IV 04/28/25 10:00 04/29/25 10:37 125 MLS/HR Sucralfate 1 gm QID@0600,1130,1700,2200 PO 04/28/25 17:00 04/29/25 06:50 1 GM Pantoprazole Sodium 50 ml @ 10 mls/hr Q5H IV 04/28/25 14:15 04/29/25 02:18 10 MLS/HR Laboratory Results Laboratory Tests 04/29/25 05:55 Chemistry Test 04/29/25 05:55 Albumin 3.0 g/dL (3.2-4.8) L Calcium Level 7.8 mg/dL (8.7-10.4) L Total Protein 5.0 g/dL (5.7-8.2) L LFT Test 04/29/25 05:55 Alanine Aminotransferase (ALT) 15 U/L (7-40) Alkaline Phosphatase 39 U/L (46-116) L Aspartate Amino Transferase (AST) 15 U/L (13-40) Total Bilirubin 0.5 mg/dL (0.2-1.0) Urinalysis Test 04/27/25 23:27 Urine Color Colorless (Yellow) Urine Clarity Turbid (Clear) H Urine pH 6.0 (5.0-9.0) Urine Specific [place] 1.015 (1.001-1.035) Urine Protein 1+ (Negative) H Urine Ketones Negative (Negative) Urine Blood 1+ /uL (Negative) H Urine Nitrite Negative (Negative) Urine Bilirubin Negative (Negative) Urine Urobilinogen Normal mg/dL (Negative) Urine Leukocyte Esterase Negative /uL (Negative) Urine Glucose 1+ mg/dL (Normal) H Microbiology Microbiology Date/Time Source Procedure Growth Status 04/27/25 22:02 Blood Blood Culture - Preliminary NO GROWTH AFTER 24 HOURS OF INCUBATION. Resulted Labs and/or images reviewed: Labs reviewed by me, Image(s) reviewed by me Assessment/Plan Assessment/Plan Severe Blood loss anemia hemoglobin 5.9 improved to 8.8 after 2 unit of RBC transfusion, hemoglobin 7.2 today, we will transfuse 1 unit Large 5 cm deep gastric ulcer bleeding with pre-pyloric antral gastritis by EGD by Dr. Zandra Ott on 04-28-25 biopsy report pending pantoprazole Carafate Lower GI bleed Multifocal pneumonia: Rocephin azithromycin: Chronic current smoker: Counseling nicotine patch Adriana test pending Flu test pending Malnutrition Time spent 70 minutes Advanced care planning time 20 minutes Patient is full code Patient lives in [facility] [phone] who lives in [place] at bedside, and she says her dad will go to live with her in [place] after discharge Plan discussed with: Patient My Orders Orders - SARA HUYNH MD Procedure Category Date Status Time Covid19 Antigen Gabriela LAB 04/28/25 Logged Rapid Influenza A&B LAB 04/28/25 Logged 13:19 * Gi Dvh Neonatal Doctor CONS 04/28/25 Transmitted 13:20 Date of Service: Apr 29, 2025 Billing Provider: SARA HUYNH MD Common Visit Codes: [id number] INP/OBS CARE(HIGH) SARA HUYNH MD Apr 29, 2025 11:16
--- NOTE | 2025-04-29 14:14 | DVHPN2 ---
Subjective Patient admits to feeling better No nausea or vomiting. Denies abdominal pain Still having loose stool which is brown and black in color Reviewed: Care Plan, H&P, Labs, Medications, Previous Orders, Radiology Changes from previous H/P or p: No Changes Objective Vitals Vital Signs Date Time Temp Pulse Resp B/P (MAP) Pulse Ox O2 Delivery O2 Flow Rate FiO2 04/29/25 09:00 98.1 97 16 133/79 (97) 96 98.1 04/29/25 08:00 Nasal Cannula* 2 28 Intake/Output Intake and Output 04/29/25 07:00 Intake Total 2360 ml Balance 2360 ml Intake Oral 1700 ml IV Total 360 ml Blood Product 300 ml # Voids 6 # Bowel Movements 4 Exam General: NAD, AAOX3 Chest: lung roberts clear to auscultation Heart: RRR, no murmur Abdomen: non-distended, no tenderness to palpation, +BS Medications Current Medications Medications Dose Ordered Sig/Dorene Route Start Time Stop Time Status Last Admin Dose Admin Nitroglycerin 0.4 mg Q5MINP PRN SL 04/28/25 00:45 Morphine Sulfate 2 mg Q30M PRN IV 04/28/25 00:45 Ceftriaxone Sodium 50 ml @ 100 mls/hr DAILY@09 IV 04/28/25 09:00 04/29/25 09:21 100 MLS/HR Ondansetron HCl 4 mg Q4HP PRN IV 04/28/25 00:45 Azithromycin 250 ml @ 125 mls/hr DAILY IV 04/28/25 10:00 04/29/25 10:37 125 MLS/HR Sucralfate 1 gm QID@0600,1130,1700,2200 PO 04/28/25 17:00 04/29/25 11:29 1 GM Pantoprazole Sodium 50 ml @ 10 mls/hr Q5H IV 04/28/25 14:15 04/29/25 02:18 10 MLS/HR Laboratory Results Laboratory Tests 04/29/25 05:55 Chemistry Test 04/29/25 05:55 Albumin 3.0 g/dL (3.2-4.8) L Calcium Level 7.8 mg/dL (8.7-10.4) L Total Protein 5.0 g/dL (5.7-8.2) L LFT Test 04/29/25 05:55 Alanine Aminotransferase (ALT) 15 U/L (7-40) Alkaline Phosphatase 39 U/L (46-116) L Aspartate Amino Transferase (AST) 15 U/L (13-40) Total Bilirubin 0.5 mg/dL (0.2-1.0) Urinalysis Test 04/27/25 23:27 Urine Color Colorless (Yellow) Urine Clarity Turbid (Clear) H Urine pH 6.0 (5.0-9.0) Urine Specific [place] 1.015 (1.001-1.035) Urine Protein 1+ (Negative) H Urine Ketones Negative (Negative) Urine Blood 1+ /uL (Negative) H Urine Nitrite Negative (Negative) Urine Bilirubin Negative (Negative) Urine Urobilinogen Normal mg/dL (Negative) Urine Leukocyte Esterase Negative /uL (Negative) Urine Glucose 1+ mg/dL (Normal) H Microbiology Microbiology Date/Time Source Procedure Growth Status 04/27/25 22:02 Blood Blood Culture - Preliminary NO GROWTH AFTER 24 HOURS OF INCUBATION. Resulted Assessment/Plan Assessment/Plan GI bleed Severe anemia Plan: Discussed with Dr. Ott 1 unit PRBC Protonix and Carafate We will continue to monitor patient Plan discussed with: Patient, Daughter Date of Service: Apr 29, 2025 Billing Provider: DOROTHEA HUYNH Common Visit Codes: [id number] INP/OBS CARE(HIGH) DOROTHEA HUYNH Apr 29, 2025 14:14
[2025-04-29] MEDS: NICOTINE 14 MG/24HR TOPICAL PATCH TD ONE (14:34)
[2025-04-29 19:21] LABS: Hematocrit 26.4 % (41.0-53.0); Hemoglobin 8.9 g/dL (13.5-17.5); Mean Corpuscular Hemoglobin 31.8 pg (28.0-32.0); Mean Corpuscular Volume 94.3 fL (80.0-100.0); Nucleated Red Blood Cells % 0.0 %
[2025-04-30] VITALS (15 sets, daily range): BP systolic 97–155; BP diastolic 47–122; PULSE 73–116; RESP 16–20; TEMP 97.6–100.5; O2SAT 18–100
[2025-04-30] MEDS: ONDANSETRON HCL 4 MG/2 ML VIAL IV PRN (03:35)
[2025-04-30 06:14] LABS: COVID19 ANTIGEN SOFIA FIA NEGATIVE (NEGATIVE)
[2025-04-30 06:45] LABS: Hemoglobin 7.1 g/dL (13.5-17.5); Nucleated Red Blood Cells % 0.0 %
[2025-04-30 06:47] LABS: Hematocrit 20.4 % (41.0-53.0); Mean Corpuscular Hemoglobin 32.7 pg (28.0-32.0); Mean Corpuscular Volume 93.9 fL (80.0-100.0)
--- NOTE | 2025-04-30 10:33 | DVHPN2 ---
Reviewed: Care Plan, H&P, Labs, Medications, Previous Orders, Radiology Changes from previous H/P or p: No Changes Objective Vitals Vital Signs Date Time Temp Pulse Resp B/P (MAP) Pulse Ox O2 Delivery O2 Flow Rate FiO2 04/30/25 09:00 97.8 101 18 97/122 (114) 18 97.8 04/29/25 20:00 Nasal Cannula* 2 28 Intake/Output Intake and Output 04/30/25 07:00 Intake Total 2300 ml Output Total 400 ml Balance 1900 ml Intake Oral 1700 ml IV Total 300 ml Blood Product 300 ml Output Urine Total 400 ml # Voids 5 # Bowel Movements 3 Medications Current Medications Medications Dose Ordered Sig/Dorene Route Start Time Stop Time Status Last Admin Dose Admin Nitroglycerin 0.4 mg Q5MINP PRN SL 04/28/25 00:45 Morphine Sulfate 2 mg Q30M PRN IV 04/28/25 00:45 Ceftriaxone Sodium 50 ml @ 100 mls/hr DAILY@09 IV 04/28/25 09:00 04/30/25 08:57 100 MLS/HR Ondansetron HCl 4 mg Q4HP PRN IV 04/28/25 00:45 04/30/25 03:35 4 MG Azithromycin 250 ml @ 125 mls/hr DAILY IV 04/28/25 10:00 04/30/25 10:00 125 MLS/HR Sucralfate 1 gm QID@0600,1130,1700,2200 PO 04/28/25 17:00 04/30/25 06:27 1 GM Pantoprazole Sodium 50 ml @ 10 mls/hr Q5H IV 04/28/25 14:15 04/30/25 06:27 10 MLS/HR Laboratory Results Laboratory Tests 04/29/25 05:55 04/30/25 05:52 Urinalysis Test 04/27/25 23:27 Urine Color Colorless (Yellow) Urine Clarity Turbid (Clear) H Urine pH 6.0 (5.0-9.0) Urine Specific [place] 1.015 (1.001-1.035) Urine Protein 1+ (Negative) H Urine Ketones Negative (Negative) Urine Blood 1+ /uL (Negative) H Urine Nitrite Negative (Negative) Urine Bilirubin Negative (Negative) Urine Urobilinogen Normal mg/dL (Negative) Urine Leukocyte Esterase Negative /uL (Negative) Urine Glucose 1+ mg/dL (Normal) H Microbiology Microbiology Date/Time Source Procedure Growth Status 04/27/25 22:02 Blood Blood Culture - Preliminary NO GROWTH AFTER 48 HOURS OF INCUBATION. Resulted Labs and/or images reviewed: Labs reviewed by me, Image(s) reviewed by me Assessment/Plan Assessment/Plan Severe Blood loss anemia hemoglobin 5.9 improved to 8.8 after 2 unit of RBC transfusion, hemoglobin 7.2 today, we will transfuse 1 unit , hemoglobin down to 7.1, will transfuse 2 units RBC Large 5 cm deep gastric ulcer bleeding with pre-pyloric antral gastritis by EGD by Dr. Zandra Ott on 04-28-25 biopsy report pending pantoprazole Carafate Lower GI bleed Multifocal pneumonia: Rocephin azithromycin: Chronic current smoker: Counseling nicotine patch Adriana test pending Flu test pending Malnutrition Time spent 70 minutes Advanced care planning time 20 minutes Patient is full code Patient lives in [place] Daughter [facility] [phone] who lives in [place] at bedside, and she says her dad will go to live with her in [place] after discharge Plan discussed with: Patient My Orders Orders - SARA HUYNH MD Procedure Category Date Status Time Vital Signs ELVIA 04/29/25 In Process 11:11 Administer Blood ELVIA 04/29/25 In Process Products 11:11 Complete Blood Count LAB 05/01/25 Verified 05:00 Complete Blood Count LAB 05/02/25 Verified 05:00 Date of Service: Apr 30, 2025 Billing Provider: SARA HUYNH MD Common Visit Codes: [id number] INP/OBS CARE(HIGH) SARA HUYNH MD Apr 30, 2025 10:33
[2025-04-30] MEDS: NICOTINE 21MG/24 HR TOPICAL PATCH TD SCH (13:00)
--- NOTE | 2025-04-30 21:41 | DVHPN2 ---
Progress Note - Dictate Date Seen: Apr 30, 2025 Medical Necessity Reason Pt with a Central, PICC or Fol: No Subjective No new complaints Patient states Carafate helps a lot with his GI symptoms On IV Protonix 40 mg q.6 hours Hemoglobin dropped down to 7.1 and he received one more unit PRBC today Patient states his stool is starting to clear up and it is not black anymore Likely blood loss related to oozing from a very large gastric ulcer vital signs Vital Sign Date Time Temp Pulse Resp B/P (MAP) Pulse Ox O2 Delivery O2 Flow Rate FiO2 04/30/25 21:00 97.9 87 19 131/76 (94) 100 97.9 04/30/25 08:00 Nasal Cannula* 2 28 Total Intake and Output 04/29/25 04/29/25 04/30/25 15:00 23:00 07:00 Intake Total 300 ml 1500 ml 500 ml Output Total 400 ml Balance 300 ml 1500 ml 100 ml medications Current Medications Medications Dose Ordered Sig/Dorene Route Start Time Stop Time Status Last Admin Dose Admin Nitroglycerin 0.4 mg Q5MINP PRN SL 04/28/25 00:45 Morphine Sulfate 2 mg Q30M PRN IV 04/28/25 00:45 Ceftriaxone Sodium 50 ml @ 100 mls/hr DAILY@09 IV 04/28/25 09:00 04/30/25 08:57 100 MLS/HR Ondansetron HCl 4 mg Q4HP PRN IV 04/28/25 00:45 04/30/25 03:35 4 MG Azithromycin 250 ml @ 125 mls/hr DAILY IV 04/28/25 10:00 04/30/25 10:00 125 MLS/HR Sucralfate 1 gm QID@0600,1130,1700,2200 PO 04/28/25 17:00 04/30/25 17:23 1 GM Pantoprazole Sodium 50 ml @ 10 mls/hr Q5H IV 04/28/25 14:15 04/30/25 16:13 10 MLS/HR Nicotine 1 patch DAILY TD 04/30/25 13:00 04/30/25 13:00 1 PATCH objective General: NAD, AAOX3 Chest: lung roberts clear to auscultation Heart: RRR, no murmur Abdomen: non-distended, no tenderness to palpation, +BS laboratory and microbiology Laboratory Tests 04/30/25 05:52 04/29/25 05:55 Test 04/29/25 05:55 Range/Units Serum Glucose 85 74-106 mg/dL Problems(with codes): (1) Gastric ulcer (2) GI bleed (3) Abdominal pain (4) Hemorrhagic shock (5) Blood loss anemia Prognosis Plan Continue current medical management with IV Protonix and Carafate Clear liquid diet advance to full liquid Monitor labs and transfuse if hemoglobin drops below seven Patient was advised follow up in my office in 2-4 weeks as he will likely need a repeat endoscopy in 6-8 weeks to ensure healing Await final pathology results Plan discussed with: Patient CC Plasma Assessment Blood Product Administration S: [id number] JANETT JACOBS MD Apr 30, 2025 21:41
[2025-05-01] VITALS (16 sets, daily range): BP systolic 97–139; BP diastolic 47–80; PULSE 75–118; RESP 14–20; TEMP 97.5–99; O2SAT 94–100
[2025-05-01 07:42] LABS: Hematocrit 27.2 % (41.0-53.0); Hemoglobin 9.3 g/dL (13.5-17.5); Mean Corpuscular Hemoglobin 30.8 pg (28.0-32.0); Mean Corpuscular Volume 89.7 fL (80.0-100.0); Nucleated Red Blood Cells % 0.1 %
--- NOTE | 2025-05-01 11:36 | DVHPN2 ---
Reviewed: Care Plan, H&P, Labs, Medications, Previous Orders, Radiology Changes from previous H/P or p: No Changes Objective Vitals Vital Signs Date Time Temp Pulse Resp B/P (MAP) Pulse Ox O2 Delivery O2 Flow Rate FiO2 05/01/25 08:49 98.9 99 18 112/58 (76) 99 98.9 05/01/25 08:00 Nasal Cannula* 2 28 Intake/Output Intake and Output 05/01/25 07:00 Intake Total 2920 ml Output Total 1201 ml Balance 1719 ml Intake Oral 1720 ml IV Total 300 ml Blood Product 600 ml Other 300 ml Output Urine Total 1200 ml Stool Total 1 ml # Voids 1 Medications Current Medications Medications Dose Ordered Sig/Dorene Route Start Time Stop Time Status Last Admin Dose Admin Nitroglycerin 0.4 mg Q5MINP PRN SL 04/28/25 00:45 Morphine Sulfate 2 mg Q30M PRN IV 04/28/25 00:45 Ceftriaxone Sodium 50 ml @ 100 mls/hr DAILY@09 IV 04/28/25 09:00 05/01/25 08:55 100 MLS/HR Ondansetron HCl 4 mg Q4HP PRN IV 04/28/25 00:45 04/30/25 03:35 4 MG Azithromycin 250 ml @ 125 mls/hr DAILY IV 04/28/25 10:00 05/01/25 10:00 125 MLS/HR Sucralfate 1 gm QID@0600,1130,1700,2200 PO 04/28/25 17:00 05/01/25 11:17 1 GM Pantoprazole Sodium 50 ml @ 10 mls/hr Q5H IV 04/28/25 14:15 05/01/25 11:18 10 MLS/HR Nicotine 1 patch DAILY TD 04/30/25 13:00 05/01/25 08:56 1 PATCH Laboratory Results Laboratory Tests 04/29/25 05:55 05/01/25 06:39 Urinalysis Test 04/27/25 23:27 Urine Color Colorless (Yellow) Urine Clarity Turbid (Clear) H Urine pH 6.0 (5.0-9.0) Urine Specific [place] 1.015 (1.001-1.035) Urine Protein 1+ (Negative) H Urine Ketones Negative (Negative) Urine Blood 1+ /uL (Negative) H Urine Nitrite Negative (Negative) Urine Bilirubin Negative (Negative) Urine Urobilinogen Normal mg/dL (Negative) Urine Leukocyte Esterase Negative /uL (Negative) Urine Glucose 1+ mg/dL (Normal) H Microbiology Microbiology Date/Time Source Procedure Growth Status 04/27/25 22:02 Blood Blood Culture - Preliminary NO GROWTH AFTER 72 HOURS OF INCUBATION. Resulted Labs and/or images reviewed: Labs reviewed by me, Image(s) reviewed by me Assessment/Plan Assessment/Plan Severe Blood loss anemia hemoglobin 5.9 improved to 9.3 after 5 unit of RBC transfusion, Large 5 cm deep gastric ulcer bleeding with pre-pyloric antral gastritis by EGD by Dr. Zandra Ott on 04-28-25 biopsy report pending pantoprazole Carafate Lower GI bleed Multifocal pneumonia: Rocephin azithromycin: Chronic current smoker: Counseling nicotine patch Adriana test pending Flu test pending Malnutrition Time spent 70 minutes Advanced care planning time 20 minutes Patient is full code Patient lives in [place] Daughter [facility] [phone] who lives in [place] at bedside, and she says her dad will go to live with her in [place] after discharge Debraarchie Carias [phone] at bedside and he is requesting patient to be discharged to her care in the [facility]. Patient agrees with the request. Patient is more alert today and is capable of taking his own decision. Plan discussed with: Patient My Orders Orders - SARA HUYNH MD Procedure Category Date Status Time Nicotine 21mg/24hr PHA 04/30/25 In Process (Nicoderm 21mg/24hr) 13:00 Date of Service: May 01, 2025 Billing Provider: SARA HUYNH MD Common Visit Codes: [id number] INP/OBS CARE([facility]) SARA HUYNH MD May 01, 2025 11:36
[2025-05-01] MEDS: SODIUM CHLORIDE 0.9% 1,000 ML IV ONE (15:00)
--- NOTE | 2025-05-01 15:25 | DVH ---
CLINICAL INFORMATION: Shortness of breath. TECHNIQUE: Single AP portable chest radiograph was obtained. COMPARISON: XY CHEST XRAY 1 VIEW on DOS: 04/28/25 FINDINGS: Lungs: Clear. Cardiac: Heart size is within normal limits. Pulmonary vasculature: Unremarkable. Mediastinum/eliana: Unremarkable. Bones: No acute osseous abnormality identified. Other: No other significant findings. IMPRESSION: No evidence of acute disease in the chest.
[2025-05-01 15:28] LABS: Hematocrit 19.0 % (41.0-53.0)
[2025-05-01 15:36] LABS: Hemoglobin 6.3 g/dL (13.5-17.5)
[2025-05-01 15:45] LABS: Alanine Aminotransferase 20 U/L (7-40); Anion Gap 11 (5-15); BUN/Creatinine Ratio 23.3 (10.0-20.0); Blood Urea Nitrogen 21 mg/dL (9-23); Carbon Dioxide 22 mmol/L (20-31); Magnesium 1.7 mg/dL (1.6-2.6); Potassium 3.5 mmol/L (3.5-5.1); Sodium 144 mmol/L (136-145)
[2025-05-01 15:48] LABS: Albumin 2.5 g/dL (3.2-4.8); Alkaline Phosphatase 41 U/L (46-116); Bilirubin, Total 0.2 mg/dL (0.2-1.0); Calcium 7.4 mg/dL (8.7-10.4); Chloride 111 mmol/L (98-107); Glucose 135 mg/dL (74-106); Total Protein 4.3 g/dL (5.7-8.2)
[2025-05-01 15:55] LABS: Lactic Acid w/Reflex 3.3 mmol/L (0.4-2.0)
--- NOTE | 2025-05-01 17:46 | RESUS ---
CODE ASSIST ASSESSSMENT Initial Information Code Assist Date: May 01, 2025 Code Assist Time: 14:41 Location of Arrest: [facility] Room # 250-[address] Provider Name Dr. Kuhn Time Notified: 14:41 Time PMD returned call: 14:45 (bedside) Crash Cart Opened and Supplies: No Situation Staff concerned/worried, speci: Acute sig bleeding, SBP <90 or 10 from baseli Situation comment: Per staff, patient found pale, sweaty throwing up "blood clots." Patient was up out of bed and had near syncope during episode. Staff was able to catch patient befor falling on the ground. Immediately placed back in bed and patient remained responsive. Background Background: Admitted for GI bleed. Assessment Blood Pressure Systolic: 126 (1445) Blood Pressure Diastolic: 52 Respiratory Rate: 18 O2 Sat by Pulse Oximetry: 99 Assessment comment: 1450: BP 99/50, HR 112, O2SAT 100% ON 3L VIA NC 1452: BP 108/52, HR 111, O2SAT 100% ON 3L VIA NC 1455: BP 118/64 HR 106, O2SAT 100% ON 3L VIA NC Recommendations/Interventions Procedures: Accu check, CXR Portable, Cardiac Monitoring, O2 Mask/NC Other Interventions STAT H&H, 0.9% NS 1 LITER BOLUS X1, STAT GI consult. Outcome Outcome: Transfer to Stepdown Follow up Report Follow up Report Patient vitals stabilized. Upgraded to JOSH status. Team Members Team Members Dr. Kuhn, Emi RN, Collette RN, Jenna RT, Luly RN, Tiffany RN, Izaiah RN, Vi RN, Nasra Guzmán RN May 01, 2025 17:46
--- NOTE | 2025-05-01 21:20 | DVHPN2 ---
Progress Note - Dictate Date Seen: May 01, 2025 Medical Necessity Reason Pt with a Central, PICC or Fol: No Subjective Patient was initially not in the room when I was rounding, he had one done with his niece Later I was notified once the patient returned from downstairs he had an episode of weakness nausea vomiting and he had an episode of moderate hematemesis Pt was lethargic in bed sweating and vomiting blood found on the floor dark red in color. Oxygen applied at 2 LMP via Nasal Cannula. No new complaints Patient remained hemodynamically stable throughout, received malignant change afterwards Patient states Carafate helps a lot with his GI symptoms Patient was started on a Protonix drip This morning the patient's hemoglobin was at 9.3 Hemoglobin dropped down to 6.3 and he is receiving 2 more units PRBC Patient has been noncompliant with his diet according to the nurse, he was eating burger and fries last night and on a soft diet today vital signs Vital Sign Date Time Temp Pulse Resp B/P (MAP) Pulse Ox O2 Delivery O2 Flow Rate FiO2 05/01/25 21:10 97.5 100 14 129/58 97.5 05/01/25 17:46 99 05/01/25 08:00 Nasal Cannula* 2 28 Total Intake and Output 04/30/25 04/30/25 05/01/25 15:00 23:00 07:00 Intake Total 300 ml 2000 ml 620 ml Output Total 1200 ml 1 ml Balance 300 ml 800 ml 619 ml medications Current Medications Medications Dose Ordered Sig/Dorene Route Start Time Stop Time Status Last Admin Dose Admin Nitroglycerin 0.4 mg Q5MINP PRN SL 04/28/25 00:45 Morphine Sulfate 2 mg Q30M PRN IV 04/28/25 00:45 Ceftriaxone Sodium 50 ml @ 100 mls/hr DAILY@09 IV 04/28/25 09:00 05/01/25 08:55 100 MLS/HR Ondansetron HCl 4 mg Q4HP PRN IV 04/28/25 00:45 04/30/25 03:35 4 MG Azithromycin 250 ml @ 125 mls/hr DAILY IV 04/28/25 10:00 05/01/25 10:00 125 MLS/HR Sucralfate 1 gm QID@0600,1130,1700,2200 PO 04/28/25 17:00 05/01/25 17:05 1 GM Pantoprazole Sodium 50 ml @ 10 mls/hr Q5H IV 04/28/25 14:15 05/01/25 17:05 10 MLS/HR Nicotine 1 patch DAILY TD 04/30/25 13:00 05/01/25 08:56 1 PATCH objective General: NAD, AAOX3 Chest: lung roberts clear to auscultation Heart: RRR, no murmur Abdomen: non-distended, no tenderness to palpation, +BS laboratory and microbiology Laboratory Tests 05/01/25 14:55 05/01/25 06:39 Test 05/01/25 14:55 Range/Units Serum Glucose 135 H 74-106 mg/dL Problems(with codes): (1) Gastric ulcer (2) GI bleed (3) Abdominal pain (4) Blood loss anemia (5) Hemorrhagic shock Prognosis Assessment plan Patient likely had recurrent GI bleeding because he advanced his diet to soon He has a large gastric ulcer with a oozing and coffee-ground in the stomach on recent examination Continue IV Protonix drip Keep him NPO except for meds Transfuse to hemoglobin above eight Await final pathology results Patient will likely need a repeat endoscopy in the next 24-48 hours to re- evaluate his gastric ulcer because of rebleed Plan discussed with: Patient, Other (Nurse and Dr Abdiaziz Sweeney) CC Plasma Assessment Blood Product Administration S: [id number] JANETT JACOBS MD May 01, 2025 21:20
[2025-05-02] VITALS (39 sets, daily range): BP systolic 92–123; BP diastolic 41–56; PULSE 86–115; RESP 13–25; TEMP 98–99.8; O2SAT 89–100
[2025-05-02 07:51] LABS: Hemoglobin 7.1 g/dL (13.5-17.5)
[2025-05-02 07:53] LABS: Hematocrit 20.4 % (41.0-53.0); Mean Corpuscular Hemoglobin 30.7 pg (28.0-32.0); Mean Corpuscular Volume 88.6 fL (80.0-100.0); Nucleated Red Blood Cells % 0.1 %
[2025-05-02 08:07] LABS: Alanine Aminotransferase 19 U/L (7-40); Anion Gap 9 (5-15); BUN/Creatinine Ratio 38.5 (10.0-20.0); Carbon Dioxide 24 mmol/L (20-31); Glucose 92 mg/dL (74-106); Potassium 4.3 mmol/L (3.5-5.1); Sodium 145 mmol/L (136-145)
[2025-05-02 08:08] LABS: Bilirubin, Total 0.4 mg/dL (0.2-1.0)
[2025-05-02 08:09] LABS: Albumin 2.1 g/dL (3.2-4.8); Alkaline Phosphatase 33 U/L (46-116); Blood Urea Nitrogen 25 mg/dL (9-23); Calcium 6.9 mg/dL (8.7-10.4); Chloride 112 mmol/L (98-107); Total Protein 3.4 g/dL (5.7-8.2)
[2025-05-02] MEDS: SODIUM CHLORIDE 0.9% 1,000 ML IV ONE ×2 (09:45→14:00)
[2025-05-02 11:54] LABS: Mean Corpuscular Volume 89.6 fL (80.0-100.0)
[2025-05-02 11:57] LABS: Hematocrit 20.0 % (41.0-53.0); Mean Corpuscular Hemoglobin 30.2 pg (28.0-32.0); Nucleated Red Blood Cells % 0.1 %
[2025-05-02] MEDS: CALCIUM GLUC 1,000mg/50ml-NS 50 ML IV SCH (11:58)
[2025-05-02 12:00] LABS: Hemoglobin 6.7 g/dL (13.5-17.5)
[2025-05-02] MEDS: CALCIUM GLUC 1,000mg/50ml-NS 50 ML IV ONE (14:16)
--- NOTE | 2025-05-02 16:15 | DVHPN2 ---
Progress Note - Dictate Date Seen: May 02, 2025 Medical Necessity Reason Pt with a Central, PICC or Fol: No Subjective No new complaints Pt seen at bedside in 244-7 No further episodes of hemetemesis Hb 7.1 s/p 1 unit PRBC yesterday vital signs Vital Sign Date Time Temp Pulse Resp B/P (MAP) Pulse Ox O2 Delivery O2 Flow Rate FiO2 05/02/25 15:00 100 16 109/50 (69) 99 05/02/25 14:35 98.3 98.3 05/02/25 12:00 Room Air* 0 21 Total Intake and Output 05/01/25 05/01/25 05/02/25 15:00 23:00 07:00 Intake Total 50 ml 0 ml 600 ml Output Total 1200 ml Balance 50 ml 0 ml -600 ml medications Current Medications Medications Dose Ordered Sig/Dorene Route Start Time Stop Time Status Last Admin Dose Admin Nitroglycerin 0.4 mg Q5MINP PRN SL 04/28/25 00:45 Morphine Sulfate 2 mg Q30M PRN IV 04/28/25 00:45 Ceftriaxone Sodium 50 ml @ 100 mls/hr DAILY@09 IV 04/28/25 09:00 05/02/25 08:25 100 MLS/HR Ondansetron HCl 4 mg Q4HP PRN IV 04/28/25 00:45 04/30/25 03:35 4 MG Azithromycin 250 ml @ 125 mls/hr DAILY IV 04/28/25 10:00 05/02/25 09:33 125 MLS/HR Sucralfate 1 gm QID@0600,1130,1700,2200 PO 04/28/25 17:00 05/02/25 09:33 1 GM Pantoprazole Sodium 50 ml @ 10 mls/hr Q5H IV 04/28/25 14:15 05/02/25 07:57 10 MLS/HR Nicotine 1 patch DAILY TD 04/30/25 13:00 05/02/25 09:38 1 PATCH objective General: NAD, AAOX3 Chest: lung roberts clear to auscultation Heart: RRR, no murmur Abdomen: non-distended, no tenderness to palpation, +BS laboratory and microbiology Laboratory Tests 05/02/25 11:21 05/02/25 05:48 Test 10/12/25 05:48 Range/Units Serum Glucose 92 74-106 mg/dL Problems(with codes): (1) Gastric ulcer (2) GI bleed (3) Abdominal pain (4) Hypoalbuminemia (5) Hemorrhagic shock (6) Blood loss anemia Prognosis Plan Patient can ice chips and water today Continue IV Protonix drip Continue Carafate 1 g 4 times a day Transfuse one more unit PRBC, one FFP and one pack of platelets Patient will be scheduled for a repeat EGD on 05/03/2025 Plan discussed with: Patient, Other (Nurse) CC Plasma Assessment Blood Product Administration S: [id number] JANETT JACOBS MD May 02, 2025 16:15
--- NOTE | 2025-05-02 19:10 | DVHPN2 ---
Assessment/Plan Assessment/Plan progress note 69 M admitted for melena, s/p scope, recurrent UGIB. seen today. improved, still tachy, adding more fluid and blood, plan to scope tomorrow. midline placement. had family meeting, discussed GOC and plan. physical exam aox4 comfortable on RA clear breath sounds s1 s2 rrr abdomen tender, soft no LE edema labs ekg imaging reviewed assessment and plan severe anemia req massive PRBC gastric ulcer, active bleeding PNA gp vs gn? acute hypoxic RF c/w ceft azithro maintain map >65 2 large bore IV transfuse keep hb >8 plan for rescope tomorrow IV bolus platelet, ffp protonix drip diet NPO meds dvt ppx hold condition critical full code crit care time 50 minutes acp 30 minutes Plan discussed with: Patient, Daughter, Other My Orders Orders - DILCIA DANIEL MD Procedure Category Date Status Time Venous Blood Gas RT 05/02/25 Logged 09:38 Strict I & O ELVIA 05/02/25 In Process 09:41 Insert Midline ORDERS 05/02/25 Transmitted 14:01 Change Midline ELVIA 05/02/25 In Process Dressing Q7 Day 16:20 Date of Service: May 02, 2025 Billing Provider: DILCIA DANIEL MD Common Visit Codes: [id number] CARE 30-74 MIN Secondary Visit Codes: [id number] CARE PLAN 30 MINUTES DILCIA DANIEL MD May 02, 2025 19:10
[2025-05-03] VITALS (77 sets, daily range): BP systolic 74–146; BP diastolic 25–69; PULSE 71–125; RESP 12–30; TEMP 95.7–99.9; O2SAT 95–100
[2025-05-03 07:35] LABS: Hemoglobin 7.1 g/dL (13.5-17.5)
[2025-05-03 07:38] LABS: Hematocrit 20.0 % (41.0-53.0); Mean Corpuscular Hemoglobin 31.8 pg (28.0-32.0); Mean Corpuscular Volume 89.8 fL (80.0-100.0); Nucleated Red Blood Cells % 0.0 %
[2025-05-03 07:47] LABS: INR 1.06 (0.9-1.15); Partial Thromboplastin Time 30.4 SEC (24.5-34.5); Prothrombin Time 11.2 sec (9.3-11.8)
[2025-05-03 07:51] LABS: Alanine Aminotransferase 18 U/L (7-40); Anion Gap 8 (5-15); BUN/Creatinine Ratio 27.3 (10.0-20.0); Blood Urea Nitrogen 18 mg/dL (9-23); Carbon Dioxide 25 mmol/L (20-31); Glucose 89 mg/dL (74-106); Potassium 3.9 mmol/L (3.5-5.1); Sodium 142 mmol/L (136-145)
[2025-05-03 07:52] LABS: Bilirubin, Total 0.5 mg/dL (0.2-1.0)
[2025-05-03 07:54] LABS: Albumin 2.5 g/dL (3.2-4.8); Alkaline Phosphatase 38 U/L (46-116); Calcium 7.2 mg/dL (8.7-10.4); Chloride 109 mmol/L (98-107); Magnesium 1.5 mg/dL (1.6-2.6); Total Protein 3.9 g/dL (5.7-8.2)
[2025-05-03] MEDS: NOREPINEPHRINE 8 MG/250ML KIT 250 ML IV ONE (11:59)
[2025-05-03] MEDS: HYDROmorphone HCL 2 MG/ML VL/or syr IV ONE (12:00)
[2025-05-03] MEDS ORDERED: HYDROmorphone HCL 2 MG/ML VL/or syr IV ONE (12:00)
[2025-05-03] MEDS: HYDROmorphone HCL 2 MG/ML VL/or syr ONE (12:05)
[2025-05-03] MEDS: SODIUM CHLORIDE 0.9% 2,000 ML IV ONE (12:15)
[2025-05-03] MEDS: NOREPINEPHRINE 8 MG/250ML KIT 250 ML IV SCH (12:15)
--- NOTE | 2025-05-03 12:58 | DVH ---
Date: 05/03/2025 12:12 PM Examination: XY KUB ABDOMEN SINGLE VIEW History: abd pain Comparison: None TECHNIQUE: Frontal views of the abdomen was obtained. FINDINGS: Bowel gas pattern is unremarkable. Right flank collimated from field of view. Artifact from left ext ernal material in the hemiabdomen limits evaluation. The lung bases are unremarkable. No acute osseous abnormality identified. IMPRESSION: Nonobstructive bowel gas pattern.
--- NOTE | 2025-05-03 12:58 | DVH ---
EXAM: XY CHEST XRAY 1 VIEW Indication: S/P CENTRAL LINE INSERTION Technique: Single frontal view of the chest was obtained Comparison: XY CHEST PORTABLE on DOS: 05/01/25, XY CHEST XRAY 1 VIEW on DOS: 04/28/25 FINDINGS: Lines and Tubes: Right internal jugular central venous catheter tip projects over superior vena cava. Lungs: No focal consolidation. Pleura: No effusion. No pneumothorax. Cardiomediastinal contours: Unremarkable Bones: No acute osseous abnormality. IMPRESSION: No acute cardiopulmonary disease.
[2025-05-03] MEDS: VASOPRESSIN 20 UNITS in SODIUM CHL 0.9% 99 ML IV SCH (13:00)
[2025-05-03 13:13] LABS: Hematocrit 13.3 % (41.0-53.0)
[2025-05-03] MEDS: VASOPRESSIN 20 UNIT/ML ONE (13:17)
[2025-05-03] MEDS: fentaNYL Drip 2500mCg/250mlNS 250 ML IV ONE (13:17)
[2025-05-03] MEDS: ETOMIDATE (2MG/ML) 20ML VIAL IV ONE ×2 (13:17)
[2025-05-03] MEDS: ROCURONIUM 10MG/ML 10ML VIAL IV ONE ×2 (13:17→13:18)
[2025-05-03] MEDS: MIDAZOLAM DRIP 50 mg/50mL 50 ML IV ONE (13:18)
[2025-05-03 13:22] LABS: Hemoglobin 4.4 g/dL (13.5-17.5)
--- NOTE | 2025-05-03 14:02 | DVH ---
EXAM: XY CHEST XRAY 1 VIEW Indication: S/P INTUBATION Technique: Single frontal view of the chest was obtained Comparison: XY CHEST XRAY 1 VIEW on DOS: 05/03/25, XY CHEST PORTABLE on DOS: 05/01/25, XY CHEST XRAY 1 VIEW on DOS: 04/28/25 FINDINGS: Lines and Tubes: Endotracheal tube projects 4.6 cm above the regis. Enteric tube tip projects over the expected region stomach. Right internal jugular central venous catheter tip projects over superi or vena cava. Lungs: No focal consolidation. Pleura: No effusion. No pneumothorax. Cardiomediastinal contours: Unremarkable Bones: No acute osseous abnormality. IMPRESSION: No acute cardiopulmonary disease.
--- NOTE | 2025-05-03 14:27 | DVHNC2 ---
Central Line Recorder of insertion practice: Senior Marketing Coordinator Occupation of assembler radio and electrical: Attending Physician Indication: Hypotension, Volume resuscitation Room prepared for procedure: Yes Senior Marketing Coordinator performed hand hygien: Yes Maximal sterile barrier precau: Mask/Eye shield, Sterile gown, Cap, Sterlie gloves, Large sterlie drape Skin Preparation: Chlorhexidine gluconate Insertion site: Right, Internal jugular Central line catheter type: Ymf-[id number]-tfm dialysis Number of lumens: 3 Post Assessment: Chest X-Ray, No Pneumothorax Date of Service: May 03, 2025 Billing Provider: DILCIA DANIEL MD Common Visit Codes: PROCEDURE ONLY Procedure Codes: [id number] NON-TUNNEL CV CATH DILCIA DANIEL MD May 03, 2025 14:27
--- NOTE | 2025-05-03 14:27 | DVHNC2 ---
Intubation Indication: Airway Protection Prep: No Preoxygenation Pretreated with: Other (etomidate) Medicated with: Other (adrien) Intubation size: cm (8) Informed consent obtained: Yes Risks/benefits/alt described: Yes Date of Service: May 03, 2025 Billing Provider: DILCIA DANIEL MD Common Visit Codes: PROCEDURE ONLY Procedure Codes: [id number] DILCIA DANIEL MD May 03, 2025 14:27
--- NOTE | 2025-05-03 15:02 | DVHINCON2 ---
Date of service: May 03, 2025 Family History: Patient reports no known family medical history. Allergies: Coded Allergies: NO KNOWN ALLERGIES (Unverified , 04/27/25) Current Medications Current Medications Medications (Trade) Dose Ordered Sig/Dorene Route PRN Reason Start Time Stop Time Status Last Admin Norepinephrine Bitartrate 250 ml @ 3.75 mls/hr Q24H IV 05/03/25 12:15 05/03/25 12:15 Vasopressin 20 units/Sodium Chloride 100 ml @ 9 mls/hr Q11H7M IV 05/03/25 13:00 05/03/25 13:00 Vital Signs Vital Signs Date Time Temp Pulse Resp B/P (MAP) Pulse Ox O2 Delivery O2 Flow Rate FiO2 05/03/25 14:40 98.0 82 16 102/69 98.0 05/03/25 10:30 97 05/03/25 08:00 Room Air* 0 21 Labs/Diagnostic Data Labs Test 05/03/25 12:55 05/03/25 07:09 05/02/25 11:21 05/02/25 10:29 Range/Units Hemoglobin 4.4 #*L 13.5-17.5 g/dL Hematocrit 13.3 #L 41.0-53.0 % White Blood Count 10.0 4.4-10.8 10^3/uL Red Blood Count 2.23 L 4.5-5.90 10^6/uL Mean Corpuscular Volume 89.8 80.0-100.0 fL Mean Corpuscular Hemoglobin 31.8 28.0-32.0 pg Mean Corpuscular Hemoglobin Concent 35.4 32.0-36.0 g/dL Red Cell Distribution Width 15.6 H 11.8-14.3 % Platelet Count 101 L 140-450 10^3/uL Mean Platelet Volume 8.3 6.9-10.8 fL Neutrophils (%) (Auto) 83.3 H 37.0-80.0 % Lymphocytes (%) (Auto) 7.2 L 10.0-50.0 % Monocytes (%) (Auto) 8.4 0.0-12.0 % Eosinophils (%) (Auto) 0.7 0.0-7.0 % Basophils (%) (Auto) 0.4 0.0-2.0 % Neutrophils # (Auto) 8.4 1.6-8.6 10 ^3/uL Lymphocytes # (Auto) 0.7 0.4-5.4 10 ^3/uL Monocytes # (Auto) 0.8 0-1.3 10 ^3/uL Eosinophils # (Auto) 0.1 0-0.8 10 ^3/uL Basophils # (Auto) 0 0-0.2 10 ^3/uL Nucleated Red Blood Cells 0.0 % Prothrombin Time 11.2 9.3-11.8 sec Prothrombin Time INR 1.06 0.9-1.15 Activated Partial Thromboplast Time 30.4 24.5-34.5 SEC Sodium Level 142 136-145 mmol/L Potassium Level 3.9 3.5-5.1 mmol/L Chloride Level 109 H 98-107 mmol/L Carbon Dioxide Level 25 20-31 mmol/L Anion Gap 8 5-15 Blood Urea Nitrogen 18 9-23 mg/dL Creatinine 0.66 L 0.700-1.30 mg/dL Glomerular Filtration Rate Calc 101 >90 mL/min BUN/Creatinine Ratio 27.3 H 10.0-20.0 Serum Glucose 89 74-106 mg/dL Lactic Acid Level 0.7 0.4-2.0 mmol/L Calcium Level 7.2 L 8.7-10.4 mg/dL Phosphorus Level 3.0 2.4-5.1 mg/dL Magnesium Level 1.5 L 1.6-2.6 mg/dL Total Bilirubin 0.5 0.2-1.0 mg/dL Aspartate Amino Transferase (AST) 19 13-40 U/L Alanine Aminotransferase (ALT) 18 7-40 U/L Alkaline Phosphatase 38 L 46-116 U/L Total Protein 3.9 L 5.7-8.2 g/dL Albumin 2.5 L 3.2-4.8 g/dL B-Type Natriuretic Peptide 46.17 0-100 pg/mL Blood Gas Specimen Type Venous Blood Gas Sample Site Vbg - n/a Blood Gas Patient Temperature 37.0 Arterial Blood Date Drawn Bryant Test N/a Venous Blood pH 7.419 7.320-7.430 Venous Blood pCO2 at Patient Temp 36.0 L 38.0-54.0 mmHg Venous Blood pO2 at Patient Temp 39.4 23.0-48.0 mmHg Venous Blood HCO3 22.8 22.0-29.0 mmol/L Venous Blood Base Excess -1.2 -2.0-3.0 mmol/L Blood Gas Modality Room air FiO2 % 21.0 Test 05/01/25 20:43 04/28/25 13:18 04/28/25 05:00 04/27/25 23:27 Range/Units POC Glucose 133 H 70-106 mg/dl Stool Occult Blood Positive Negative Stool Occult Blood Sample #3 Negative Influenza Type A Antigen Negative Negative Influenza Type B Antigen Negative Negative SARS-CoV-2 Antigen (Rapid) Negative NEGATIVE Urine Color Colorless Yellow Urine Clarity Turbid H Clear Urine pH 6.0 5.0-9.0 Urine Specific Buckner 1.015 1.001-1.035 Urine Protein 1+ H Negative Urine Ketones Negative Negative Urine Blood 1+ H Negative /uL Urine Nitrite Negative Negative Urine Bilirubin Negative Negative Urine Urobilinogen Normal Negative mg/dL Urine Leukocyte Esterase Negative Negative /uL Urine Glucose 1+ H Normal mg/dL Urine Opiates Screen Neg NEGATIVE Urine Fentanyl Screen Neg NEGATIVE Urine Barbiturates Screen Neg NEGATIVE Urine Phencyclidine Screen Neg NEGATIVE Urine Amphetamines Screen Neg NEGATIVE Urine Benzodiazepines Screen Neg NEGATIVE Urine Cocaine Screen Neg NEGATIVE Urine Cannabinoids Screen Neg NEGATIVE Test 04/27/25 22:02 Range/Units Platelet Estimate Decreased Anisocytosis (manual) Slight Troponin I High Sensitivity 11 </=54 ng/L Lipase 22 12-53 U/L Microbiology Date/Time Source Procedure Growth Status 04/27/25 22:02 Blood Blood Culture - Final NO GROWTH AFTER 5 DAYS OF INCUBATION. Complete Assessment [id number] INTUBATED AFEBRILE HEMODYNAMICALLY LABILE ON VASOPRESSOR SUPPORT UGI BLEED CONTINUE CLOSE OBSERVATION RESUSCITATION IR EVAL FOR EMBOLIZATION ONGOING HIGH RISK FOR SURGERY CONSIDER EMERGENT SURGERY BASED ON ONGOING EVAL NURSE AT BEDSIDE Plan discussed with: Other TUNG JACOBS MD May 03, 2025 15:02
[2025-05-03] MEDS: LIDOCAINE 2%HCL (LOCAL ANESTH.) INJ 20ML MDV ONE (15:11)
[2025-05-03] MEDS: SODIUM CHLORIDE 0.9% 1,000 ML IV ONE ×3 (15:30→21:11)
[2025-05-03] MEDS ORDERED: SODIUM CHLORIDE 0.9% 1,000 ML IV ONE (15:30)
[2025-05-03] MEDS: fentaNYL Drip 2500mCg/250mlNS 250 ML IV SCH (15:47)
[2025-05-03] MEDS: MIDAZOLAM DRIP 50 mg/50mL 50 ML IV SCH (15:48)
[2025-05-03] MEDS: ANGIOMAX 250 MG VIAL IV ONE (16:14)
[2025-05-03] MEDS: EPINEPHrine HCL 250 ML IV SCH (16:15)
[2025-05-03 16:49] LABS: Base Excess -8.9 mmol/L (-2.0-3.0)
[2025-05-03 16:58] LABS: Hemoglobin 7.2 g/dL (13.5-17.5)
[2025-05-03 16:59] LABS: Hematocrit 21.8 % (41.0-53.0); Mean Corpuscular Hemoglobin 29.8 pg (28.0-32.0); Mean Corpuscular Volume 90.5 fL (80.0-100.0)
[2025-05-03 17:31] LABS: Lactic Acid w/Reflex 2.3 mmol/L (0.4-2.0)
[2025-05-03] MEDS ORDERED: VANCOMYCIN PER PHARMACY 0 MG IV SCH (17:45)
[2025-05-03 17:55] LABS: Base Excess -12.3 mmol/L (-2.0-3.0)
--- NOTE | 2025-05-03 18:00 | DVHPN2 ---
Assessment/Plan Assessment/Plan progress note 69 M admitted for melena, s/p scope, recurrent UGIB. seen today. HB AM 7.1. sudden change in status, patient diaphoretic, tachycardic and hypotensive. placed on trendelenburg, IV boluses. TLC placed in. large volume hematemesis and NGT showed blood. so far 800 cc in suction canister. d/w GI, IR and surg. plan for ir emblization, MTP to stabilize, possible need for emergent surgery. started on pressors. intubated for airway protection. physical exam intubated sedated on mech vent mech breath sounds bloody ett and ngt s1 s2 tachy abdomen tender, vvoluntary guarding no le edema labs ekg imaging reviewed POCUS done, FAST, no free fluid, subxyphoid heart looks hyperdynamic, IVC flat assessment and plan severe anemia req massive PRBC gastric ulcer, active bleeding PNA gp vs gn? acute hypoxic RF rec mech vent acute metabolic encep hemorrhagic shock nova and vanc maintain map >65 levo - vaso - epi - phenyl stress dose steroid 2 large bore IV transfuse keep hb >8 IR for embolization IV bolus platelet, ffp protonix drip surg, GI on board diet NPO meds dvt ppx hold condition critical prognosis poor full code crit care time 120 minutes acp 30 minutes Plan discussed with: Patient, Daughter, Other My Orders Orders - DILCIA DANIEL MD Procedure Category Date Status Time Communication Order ORDERS 05/02/25 Transmitted 19:10 * Radiologist Consult CONS 05/03/25 Transmitted 12:04 Norepinephrine 8 PHA 05/03/25 In Process Mg/250ml Kit 12:15 Chest Xray 1 View XY 05/03/25 Resulted 12:12 Sodium Chl 0.9% PHA 05/03/25 In Process (So... W/Vasopressin 13:00 Rocuronium Lee PHA 05/03/25 In Process 13:30 Chest Xray 1 View XY 05/03/25 Resulted 13:25 Communication Order ORDERS 05/03/25 Transmitted 13:48 Ventilator Orders RT 05/03/25 Transmitted 13:20 Abg W/ Co-Ox RT 05/03/25 Logged 15:00 Respiratory Culture KARIS 05/03/25 In Process W/ Gs 13:20 Insert Ochoa Catheter ELVIA 05/03/25 In Process 15:20 Midazolam Drip 50 PHA 05/03/25 In Process Mg/50ml (Versed Drip 5 15:30 Fentanyl Drip PHA 05/03/25 In Process 2500mcg/250mlns 15:30 Rass Sedation Scale ELVIA 05/03/25 In Process 15:20 Arter/Venous XY 05/03/25 Taken Embolization 15:51 Communication Order ORDERS 05/03/25 Transmitted 13:33 Epinephrine Hcl PHA 05/03/25 In Process 16:15 Complete Blood Count LAB 05/03/25 In Process 16:12 Comprehensive LAB 05/03/25 Logged Metabolic Panel 16:12 Abg W/ Co-Ox RT 05/03/25 Logged 16:16 Manual Differential LAB 05/03/25 In Process 16:44 Pheresis Platelets BBK 05/03/25 Logged 17:06 Echo 2d Mode Cardiac US 05/03/25 Logged DOP 17:50 Communication Order ORDERS 05/03/25 Transmitted 17:51 Communication Order ORDERS 05/03/25 Transmitted 17:51 Fibrinogen LAB 05/03/25 Transmitted 17:51 Complete Blood Count LAB 05/04/25 Verified 04:00 Comprehensive LAB 05/04/25 Verified Metabolic Panel 04:00 Lactic Acid W/ Reflex LAB 05/04/25 Verified Order 04:00 Magnesium LAB 05/04/25 Verified 04:00 Phosphorus LAB 05/04/25 Verified 04:00 PTPTT LAB 05/04/25 Verified 04:00 B-Type Natriuretic LAB 05/04/25 Verified Peptide 04:00 * Surgical Consult CONS 05/03/25 Transmitted Ng To Lis ELVIA 05/03/25 In Process 17:51 Transfer Orders XFER 05/03/25 Transmitted 17:55 Date of Service: May 03, 2025 Billing Provider: DILCIA DANIEL MD Common Visit Codes: [id number] CARE 30-74 MIN, [id number] CARE-EACH +30MIN DILCIA DANIEL MD May 03, 2025 18:00
[2025-05-03] MEDS: MEROPENEM 1GM IVPB 50 ML IV ONE (18:04)
[2025-05-03] MEDS: HYDROCORTISONE SOD SUCC 100 MG/2ML INJ VIAL IV ONE (18:11)
[2025-05-03] MEDS: VANCOMYCIN 1GM/250ML KIT 250 ML IV ONE (18:21)
--- NOTE | 2025-05-03 18:30 | DVHINCON2 ---
DATE OF CONSULTATION: 05/03/2025 HISTORY OF PRESENT ILLNESS: A 69-year-old intubated, unable to give history. Most of the information obtained from the nursing staff that was at the bedside. He has a three-day history of having black tarry stools, history of hematemesis. EGD done, no active bleeding noted and then he was on a diet and then he started to have vomiting bright red blood as well as bright red blood from the rectum as well. I was asked to see him. He is critically unstable, on vasopressor support. PAST MEDICAL HISTORY: Please refer to records. SURGICAL HISTORY: Not available. PHYSICAL EXAMINATION: VITAL SIGNS: He is afebrile, hemodynamically labile, on vasopressor support. HEENT: He is pale. No cyanosis or jaundice. NECK: Supple and nontender with no thyromegaly or lymphadenopathy. CHEST AND LUNGS: Clear. HEART: Within normal limits. ABDOMEN: Soft. Minimally distended. No rebound but not possible to evaluate him clinically because of his intubation. NEUROLOGIC: Not assessed. EXTREMITIES: Unremarkable. CLINICAL IMPRESSION: Upper GI bleed, possibly a gastroduodenal ulcer. PLAN: Consider IR evaluation for embolization as he is unstable for surgery at this time but emergent surgery can be considered based upon ongoing evaluation. MD BRIANNA Hahn/MATTY/DENISE TID: [id number] RECEIPT: [id number] cc: Tal Tompkins NP
[2025-05-03 18:58] LABS: Anion Gap 10 (5-15)
[2025-05-03 19:04] LABS: BUN/Creatinine Ratio 20.9 (10.0-20.0)
[2025-05-03 19:10] LABS: Total Cells Counted 100.0 (100)
[2025-05-03 19:25] LABS: Alanine Aminotransferase 18 U/L (7-40); Albumin 1.9 g/dL (3.2-4.8); Alkaline Phosphatase 34 U/L (46-116); Bilirubin, Total 0.8 mg/dL (0.2-1.0); Blood Urea Nitrogen 19 mg/dL (9-23); Carbon Dioxide 19 mmol/L (20-31); Chloride 113 mmol/L (98-107); Glucose 219 mg/dL (74-106); Sodium 142 mmol/L (136-145); Total Protein 3.1 g/dL (5.7-8.2)
[2025-05-03 19:28] LABS: Calcium 5.6 mg/dL (8.7-10.4); Potassium 5.6 mmol/L (3.5-5.1)
--- NOTE | 2025-05-03 20:47 | DVHNC2 ---
Arterial Puncture Notes ARTERIAL LINE PLACEMENT Left radial Artery 05/03/25 The procedure, including its risks and benefits, was explained to the family, and informed consent was obtained. A procedural time-out was performed to confirm the correct patient, procedure, and site. Bryant test was performed. The left wrist was positioned with mild dorsiflexion. The area overlying the left radial artery was prepped with chlorhexidine and draped in a sterile fashion. Using ultrasound guidance, the left radial artery was identified. A arterial catheter was advanced into the artery under direct ultrasound visualization, with pulsatile bright red blood return confirming arterial placement. The catheter was then connected to a pressure monitoring transducer, showing an appropriate arterial waveform. The line was secured in place with suture and sterile dressing Ander Barnhart MD PGY3 Alfredo Daniel MD Date of Service: May 03, 2025 Billing Provider: ALFREDO DANIEL MD Common Visit Codes: PROCEDURE ONLY Procedure Codes: [id number] LINE ANDER BARNHART RESIDENT May 03, 2025 20:47
[2025-05-03] MEDS: ALBUTEROL SULF 2.5 MG/0.5ML(0.5%) NEB SOLN NEB ONE (20:50)
[2025-05-03] MEDS: DEXTROSE (50%) 50ML SYRG IV ONE (21:06)
[2025-05-03] MEDS: SODIUM BICARB 8.4% 50Meq/50ml SYR INJ IV ONE (21:07)
[2025-05-03] MEDS: CALCIUM GLUC 1,000mg/50ml-NS 50 ML IV SCH ×2 (21:07→23:11)
[2025-05-03] MEDS: InsuLIN REG 1unit/0.01ml Soln (100units/ml) IV ONE (21:09)
[2025-05-03] MEDS: CALCIUM W/VIT D (600MG/400IU) TAB PO ONE (21:11)
[2025-05-03 21:38] LABS: Hematocrit 34.0 % (41.0-53.0); Hemoglobin 11.2 g/dL (13.5-17.5); Mean Corpuscular Hemoglobin 29.9 pg (28.0-32.0); Mean Corpuscular Volume 91.0 fL (80.0-100.0)
[2025-05-03 21:48] LABS: Alanine Aminotransferase 20 U/L (7-40); Anion Gap 10 (5-15); BUN/Creatinine Ratio 20.0 (10.0-20.0); Blood Urea Nitrogen 18 mg/dL (9-23); Sodium 142 mmol/L (136-145)
[2025-05-03 21:50] LABS: Bilirubin, Total 1.0 mg/dL (0.2-1.0)
--- NOTE | 2025-05-03 22:08 | DVHPN2 ---
Progress Note - Dictate Date Seen: May 03, 2025 Medical Necessity Reason Pt with a Central, PICC or Fol: No Subjective Patient was stable until 11:00 a.m. this morning Certainly he has got up to the commode and had a near syncopal episode Patient was found to be hypotensive and a code assist was called NG tube was inserted and patient had a moderate amount of bright red blood via the NG tube His hemoglobin dropped to 4.4 and present received 2 units PRBC and 1 unit of FFP Patient was transferred to IR for possible embolization of recurrent intermittent rapid upper GI bleed from large ulcer IR physician Dr. 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 No further episodes of hemetemesis Hb 7.2 and then 11.2 post procedure vital signs Vital Sign Date Time Temp Pulse Resp B/P (MAP) Pulse Ox O2 Delivery O2 Flow Rate FiO2 05/03/25 21:58 114 29 116/47 (70) 100 35 05/03/25 21:30 99.9 211.8 05/03/25 20:00 Mechanical Ventilator+ 05/03/25 12:00 3 Total Intake and Output 05/02/25 05/02/25 05/03/25 15:00 23:00 07:00 Intake Total 304 ml 1037 ml 383 ml Output Total 251 ml 375 ml Balance 304 ml 786 ml 8 ml medications Current Medications Medications Dose Ordered Sig/Dorene Route Start Time Stop Time Status Last Admin Dose Admin Sucralfate 1 gm QID@0600,1130,1700,2200 PO 04/28/25 17:00 05/03/25 21:11 1 GM Pantoprazole Sodium 50 ml @ 10 mls/hr Q5H IV 04/28/25 14:15 05/03/25 11:00 10 MLS/HR Norepinephrine Bitartrate 250 ml @ 3.75 mls/hr Q24H IV 05/03/25 12:15 05/03/25 21:02 56.25 MLS/HR Vasopressin 20 units/Sodium Chloride 100 ml @ 9 mls/hr Q11H7M IV 05/03/25 13:00 05/03/25 13:00 9 MLS/HR Midazolam HCl 50 ml @ 1 mls/hr Q24H IV 05/03/25 15:30 05/03/25 15:48 1 MLS/HR Fentanyl Citrate 250 ml @ 2.5 mls/hr Q24H IV 05/03/25 15:30 05/03/25 15:47 2.5 MLS/HR Epinephrine HCl 250 ml @ 7.5 mls/hr Q24H IV 05/03/25 16:15 05/03/25 16:15 7.5 MLS/HR Meropenem 50 ml @ 17 mls/hr Q8H IV 05/04/25 02:00 Vancomycin HCl 0 ml @ 0 mls/hr UD IV 05/03/25 17:45 Vancomycin HCl 250 ml @ 250 mls/hr Q12H IV 05/04/25 05:00 Hydrocortisone Sodium Succinate 50 mg Q6H IV 05/04/25 00:00 05/08/25 23:59 Calcium/Vitamin D 1 tab DAILY PO 05/04/25 10:00 objective General: NAD, AAOX3 Chest: lung roberts clear to auscultation Heart: RRR, no murmur Abdomen: non-distended, no tenderness to palpation, +BS laboratory and microbiology Laboratory Tests 05/03/25 21:00 Test 05/03/25 21:00 Range/Units Serum Glucose Pending Problems(with codes): (1) Near syncope (2) Gastric ulcer (3) GI bleed (4) Abdominal pain (5) Hemorrhagic shock (6) Blood loss anemia Prognosis Plan Patient had been tentatively scheduled for an endoscopy this morning However this was deferred because of patient's active GI bleed hypotension and hemodynamic instability It was also felt to be more prudent to proceed directly with an IR consult 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
[2025-05-03 22:40] LABS: Albumin 2.3 g/dL (3.2-4.8); Alkaline Phosphatase 39 U/L (46-116); Carbon Dioxide 18 mmol/L (20-31); Chloride 114 mmol/L (98-107); Glucose 236 mg/dL (74-106); Magnesium 1.4 mg/dL (1.6-2.6); Potassium 5.5 mmol/L (3.5-5.1); Total Protein 3.8 g/dL (5.7-8.2)
[2025-05-03 22:41] LABS: Calcium 5.9 mg/dL (8.7-10.4)
[2025-05-03 23:00] LABS: Total Cells Counted 100.0 (100)
[2025-05-03] MEDS: MAGNESIUM SULFATE 1GM/100ML 100 ML IV SCH (23:11)
[2025-05-04] VITALS (110 sets, daily range): BP systolic 93–159; BP diastolic 29–72; PULSE 74–97; RESP 13–27; TEMP 97.7–99.1; O2SAT 97–100
[2025-05-04] MEDS: HYDROCORTISONE SOD SUCC 100 MG/2ML INJ VIAL IV SCH (00:03)
[2025-05-04] MEDS: MEROPENEM 1GM IVPB 50 ML IV SCH (01:36)
[2025-05-04 03:37] LABS: Hematocrit 29.0 % (41.0-53.0); Hemoglobin 9.7 g/dL (13.5-17.5); Mean Corpuscular Hemoglobin 30.4 pg (28.0-32.0); Mean Corpuscular Volume 90.7 fL (80.0-100.0); Nucleated Red Blood Cells % 0.0 %
[2025-05-04 03:57] LABS: Alanine Aminotransferase 17 U/L (7-40); Anion Gap 13 (5-15); BUN/Creatinine Ratio 19.0 (10.0-20.0); Bilirubin, Total 0.6 mg/dL (0.2-1.0); Blood Urea Nitrogen 16 mg/dL (9-23); Magnesium 1.9 mg/dL (1.6-2.6); Potassium 4.3 mmol/L (3.5-5.1); Sodium 144 mmol/L (136-145)
[2025-05-04 04:00] LABS: INR 1.14 (0.9-1.15); Lactic Acid w/Reflex 4.0 mmol/L (0.4-2.0); Partial Thromboplastin Time 30.6 SEC (24.5-34.5); Prothrombin Time 11.9 sec (9.3-11.8)
[2025-05-04 04:07] LABS: Albumin 2.3 g/dL (3.2-4.8); Alkaline Phosphatase 37 U/L (46-116); Calcium 7.3 mg/dL (8.7-10.4); Carbon Dioxide 18 mmol/L (20-31); Chloride 113 mmol/L (98-107); Glucose 241 mg/dL (74-106); Total Protein 4.0 g/dL (5.7-8.2)
--- NOTE | 2025-05-04 05:01 | DVH ---
CHEST RADIOGRAPH Indication: RESPIRATORY FAILURE Technique: Single frontal view of the chest was obtained COMPARISON: XY CHEST XRAY 1 VIEW on DOS: 05/03/25, XY CHEST XRAY 1 VIEW on DOS: 05/03/25, XY CHEST PO RTABLE on DOS: 05/01/25, XY CHEST XRAY 1 VIEW on DOS: 04/28/25 FINDINGS: Lines and Tubes: Unchanged. Lungs: Clear Pleura: No effusion. No pneumothorax. Cardiomediastinal contours: Unremarkable Bones: Unremarkable IMPRESSION: 1. No acute cardiopulmonary disease. 2. Lines and tubes unchanged
[2025-05-04] MEDS: VANCOMYCIN 1GM/250ML KIT 250 ML IV SCH (05:14)
[2025-05-04] MEDS ORDERED: HYDROCORTISONE SOD SUCC 100 MG/2ML INJ VIAL IV SCH ×2 (06:00)
[2025-05-04 07:16] LABS: Base Excess -6.3 mmol/L (-2.0-3.0)
[2025-05-04] MEDS: LIDOCAINE 2% JELLY 11ml (GLYDO) UR ONE (08:00)
[2025-05-04] MEDS: CALCIUM GLUC 1,000mg/50ml-NS 50 ML IV SCH (09:33)
[2025-05-04] MEDS ORDERED: CALCIUM W/VIT D (600MG/400IU) TAB PO SCH (10:00)
--- NOTE | 2025-05-04 10:34 | MEDREC ---
DVH ASP Intervention Section I Assessment of apprpriate abx f: Empiric treatment of MRSA (PLEASE CONSIDER D/C VANCOMYCIN - NARES SCREENING FOR MRSA HAS A HIGH SPECIFICITY AND NEGATIVE PREDICTIVE VALUE FOR RULING OUT MRSA PNEUMONIA, PARTICULARLY IN CASES OF CAP BASED ON THE NEGATIVE PREDICITVE VALUE AND THE MRSA NARES NEGATIVE PLEASE CONS IDER D/C VANCOMYCIN. ) THOMAS GARNETT PHARMACIST May 04, 2025 10:34
--- NOTE | 2025-05-04 11:38 | DVHINCON2 ---
Date of service: May 04, 2025 Referring Physician Hospitalist Reason for Consultation crouch placement History of Present Illness History Source: RN Notes, MD Notes Exam Limitations: Clinical condition HPI 78 yo male admitted to ICU for severe GI bleed. crouch malpositioned., urology asked to assist. Past Medical History Patient Family History: Patient reports no known family medical history. Review of Systems Comments unable to obtain H&P Exam Vital Signs Vital Signs Date Time Temp Pulse Resp B/P (MAP) Pulse Ox O2 Delivery O2 Flow Rate FiO2 05/04/25 10:15 97.9 82 17 118/55 (76) 99 208.2 05/04/25 10:08 30 05/04/25 10:00 Mechanical Ventilator+ 05/03/25 12:00 3 General Appeara: Well developed, Well nourished, Normal Appearance Pulmonary/Respiratory: Other (intubated) Abdominal Exam: Soft Rectal Exam: Deferred Male Genital Exam: Normal genitalia Labs/Xrays [place] [address] Ph: [phone] DIAGNOSTIC IMAGING Diagnostic Imaging Report : [id number] Signed PATIENT: DARLENE CHAVIS ACCT: [id number] UNIT: [id number] : 1955 LOC: OVERFLOW ROOM / BED: [address] [place] [address] AGE / SEX: 69 / M ADM STATUS: ADM IN SERVICE 45 ORDERING PHYSICIAN: JOSÉ MANUEL MONTEZ RESIDENT PROCEDURE(s): ABPL - CT AB PEL WO CON-NO ORAL OR IV REASON: abd pain ORDER NUMBER(s): [id number], ACCESSION NUMBER(s): [id number] Exam: CT CT AB PEL WO CON-NO ORAL OR IV History: abd pain Comparison Study: None Technique: Multidetector spiral CT of the abdomen was performed from lung bases to pubic symphysis. Imaging was performed without IV contrast. Axial, coronal and sagittal multiplanar reformats were obtained from the axial data set by the technologist. Radiation Dose : 1. Abdomen/Pelvis: CTDIvol 7.45 mGy, DLP 396.72 mGy*cm. Findings: Evaluation of solid organs is limited due to lack of intravenous contrast use. Lower Chest: Patchy consolidations within the kcoqs-irdvtdj-cfic-left lower lobes. Normal heart size. Liver: Unremarkable. Gallbladder and Biliary Tree: Unremarkable Pancreas: Mild atrophy. Spleen: Unremarkable. Adrenal Glands: Unremarkable. Kidneys/Ureters: No urinary stone or obstruction. Bladder: Grossly unremarkable for degree of distention. Pelvic Organs: Unremarkable as visualized. Bowel: No bowel wall thickening or obstruction. Heterogeneous stomach contents appear to represent ingested material. No evidence of appendicitis. Distal colonic diverticulosis. Vasculature: Moderate atherosclerosis with infrarenal aortic ectasia. Lymphadenopathy: No obvious adenopathy. Peritoneum: No ascites, free air, or fluid collection. Abdominal Wall: No significant hernia. Musculoskeletal: No acute findings. Degenerative change of the spine and pelvis. IMPRESSION: 1. Niecn-pkvwede-pfqa-left basilar airspace disease suggesting multifocal pn eumonia or aspiration pneumonitis. 2. No acute abdominopelvic findings within the limitations of a noncontrast exam. 3. Colonic diverticulosis. Radiation optimization: All CT scans at this facility use at least one of these dose optimization techniques: automated exposure control mA and/or kV adjustment per patient size (includes targeted exams where dose is matched to clinical indication) or iterative reconstruction. ATED BY: MATTEO HYATT MD DICTATED DATE/TIME: 04/28/25209 SIGNED BY: MATTEO HYATT MD SIGNED DATE/TIME: 04/28/25209 CC: Labs Test 05/04/25 07:08 05/04/25 07:01 05/04/25 02:55 05/03/25 21:00 Range/Units Lactic Acid Level 1.6 0.4-2.0 mmol/L Blood Gas Specimen Type Arterial Blood Gas Sample Site Right brachial Blood Gas Patient Temperature 37.0 Arterial Blood Date Drawn [id number] Arterial Blood pH 7.308 L 7.350-7.450 Arterial Blood Partial Pressure CO2 39.7 35.0-48.0 mmHg Arterial Blood Partial Pressure O2 109.6 H 83.0-108.0 mmHg Arterial Blood HCO3 19.5 L 21.0-28.0 mmol/L Arterial Blood Oxygen Saturation 97.3 94.0-98.0 % Arterial Blood Base Excess -6.3 L -2.0-3.0 mmol/L Arterial Blood Oxyhemoglobin 97.1 94.0-98.0 % Arterial Blood Carboxyhemoglobin 0.1 L 0.5-1.5 % Arterial Blood Methemoglobin 0.1 0.0-1.5 % Bryant Test N/a Blood Gas Total Hemoglobin 10.30 L 13.5-17.5 g/dL Blood Gas Set Respiration Rate 20.0 Blood Gas Modality Vent - ac FiO2 % 30.0 Blood Gas Tidal Volume 400.0 Blood Gas PEEP or CPAP 7.0 White Blood Count 18.2 #H 4.4-10.8 10^3/uL Red Blood Count 3.20 L 4.5-5.90 10^6/uL Hemoglobin 9.7 L 13.5-17.5 g/dL Hematocrit 29.0 #L 41.0-53.0 % Mean Corpuscular Volume 90.7 80.0-100.0 fL Mean Corpuscular Hemoglobin 30.4 28.0-32.0 pg Mean Corpuscular Hemoglobin Concent 33.5 32.0-36.0 g/dL Red Cell Distribution Width 15.1 H 11.8-14.3 % Platelet Count 107 L 140-450 10^3/uL Mean Platelet Volume 8.5 6.9-10.8 fL Neutrophils (%) (Auto) 94.1 H 37.0-80.0 % Lymphocytes (%) (Auto) 2.7 L 10.0-50.0 % Monocytes (%) (Auto) 3.2 0.0-12.0 % Eosinophils (%) (Auto) 0.0 0.0-7.0 % Basophils (%) (Auto) 0.0 0.0-2.0 % Neutrophils # (Auto) 17.1 H 1.6-8.6 10 ^3/uL Lymphocytes # (Auto) 0.5 0.4-5.4 10 ^3/uL Monocytes # (Auto) 0.6 0-1.3 10 ^3/uL Eosinophils # (Auto) 0 0-0.8 10 ^3/uL Basophils # (Auto) 0 0-0.2 10 ^3/uL Nucleated Red Blood Cells 0.0 % Prothrombin Time 11.9 H 9.3-11.8 sec Prothrombin Time INR 1.14 0.9-1.15 Activated Partial Thromboplast Time 30.6 24.5-34.5 SEC Sodium Level 144 136-145 mmol/L Potassium Level 4.3 3.5-5.1 mmol/L Chloride Level 113 H 98-107 mmol/L Carbon Dioxide Level 18 L 20-31 mmol/L Anion Gap 13 5-15 Blood Urea Nitrogen 16 9-23 mg/dL Creatinine 0.84 0.700-1.30 mg/dL Glomerular Filtration Rate Calc 94 >90 mL/min BUN/Creatinine Ratio 19.0 10.0-20.0 Serum Glucose 241 H 74-106 mg/dL Calcium Level 7.3 L 8.7-10.4 mg/dL Phosphorus Level 3.3 2.4-5.1 mg/dL Magnesium Level 1.9 1.6-2.6 mg/dL Total Bilirubin 0.6 0.2-1.0 mg/dL Aspartate Amino Transferase (AST) 21 13-40 U/L Alanine Aminotransferase (ALT) 17 7-40 U/L Alkaline Phosphatase 37 L 46-116 U/L B-Type Natriuretic Peptide 37.50 0-100 pg/mL Total Protein 4.0 L 5.7-8.2 g/dL Albumin 2.3 L 3.2-4.8 g/dL Differential Total Cells Counted 100.0 100 Neutrophils % (Manual) 86 H 37.0-80.0 Band Neutrophils % (Manual) 8 Lymphocytes % (Manual) 2 L 10.0-50.0 Monocytes % (Manual) 3 0-12 Eosinophils % (Manual) 0 0-7 Basophils % (Manual) 0 0.0-2.0 Metamyelocytes % (manual) 1 Myelocytes % (Manual) 0 Promyelocytes % (Manual) 0 Blast Cells % (Manual) 0 Reactive Lymphocytes 0 Platelet Estimate Decreased Troponin I High Sensitivity 9 </=54 ng/L Test 05/03/25 18:30 05/03/25 17:50 05/02/25 10:29 05/01/25 20:43 Range/Units Fibrinogen 251 177-375 mg/dL Blood Gas Spontaneous Rate 20 Blood Gas Critical Value Read Back Yes Blood Gas Notified Whom jason Barnhart md Blood Gas Notified Time [id number] Blood Gas Notified By Nichole pierson rt Venous Blood pH 7.419 7.320-7.430 Venous Blood pCO2 at Patient Temp 36.0 L 38.0-54.0 mmHg Venous Blood pO2 at Patient Temp 39.4 23.0-48.0 mmHg Venous Blood HCO3 22.8 22.0-29.0 mmol/L Venous Blood Base Excess -1.2 -2.0-3.0 mmol/L POC Glucose 133 H 70-106 mg/dl Test 04/28/25 13:18 04/28/25 05:00 04/27/25 23:27 04/27/25 22:02 Range/Units Stool Occult Blood Positive Negative Stool Occult Blood Sample #3 Negative Influenza Type A Antigen Negative Negative Influenza Type B Antigen Negative Negative SARS-CoV-2 Antigen (Rapid) Negative NEGATIVE Urine Color Colorless Yellow Urine Clarity Turbid H Clear Urine pH 6.0 5.0-9.0 Urine Specific Miles 1.015 1.001-1.035 Urine Protein 1+ H Negative Urine Ketones Negative Negative Urine Blood 1+ H Negative /uL Urine Nitrite Negative Negative Urine Bilirubin Negative Negative Urine Urobilinogen Normal Negative mg/dL Urine Leukocyte Esterase Negative Negative /uL Urine Glucose 1+ H Normal mg/dL Urine Opiates Screen Neg NEGATIVE Urine Fentanyl Screen Neg NEGATIVE Urine Barbiturates Screen Neg NEGATIVE Urine Phencyclidine Screen Neg NEGATIVE Urine Amphetamines Screen Neg NEGATIVE Urine Benzodiazepines Screen Neg NEGATIVE Urine Cocaine Screen Neg NEGATIVE Urine Cannabinoids Screen Neg NEGATIVE Anisocytosis (manual) Slight Lipase 22 12-53 U/L Microbiology Date/Time Source Procedure Growth Status 05/02/25 04:21 Nose MRSA Screen - Final Complete 04/27/25 22:02 Blood Blood Culture - Final NO GROWTH AFTER 5 DAYS OF INCUBATION. Complete Assessment/Plan Problem List: (1) Crouch catheter problem (2) False passage of urethra (3) Blood loss anemia (4) Hemorrhagic shock (5) Hypoalbuminemia (6) Abdominal pain (7) GI bleed (8) Gastric ulcer (9) Near syncope Plan bedside flexible cysto with crouch placement over guidewire Plan discussed with: Spouse, Son, Other EVELYNLI MAURICIO May 04, 2025 11:38
--- NOTE | 2025-05-04 12:10 | DVHNC2 ---
Procedure - Bedside flexible cystoscopy and [place] tip crouch placement over guidewire. ICU room 110 Performed by Li Rivas FAMILY CONSUMER SCIENCE TEACHER- C urology Supervising Physician Dr. Jer Tolliver Indication: suspected urethral false passage created during prior attempt Description: patient positioned supine in bed. urethral meatus was prepped and draped in sterile manner. 10 ml Glydo was instilled intraurethrally for local anesthesia and lubrication. flexible cystoscopy was gently inserted into the urethral. Visualization revealed a false passage in the bulbar urethra, with the true lumen identified proximal to the site. Under direct visualization a guidewire was advanced through the true urethral lumen into the bladder. the cystoscope was withdrawn leaving the guidewire in place. An 18F hoopa tip guidewire was then passed over the guidewire into the bladder without resistance. Charlton tinged urine was observed upon placement confirming appropriate position. the balloon was in flated with 10 cc NS and was secured to gravity drainage. Findings: false passage in the bulbar urethra No active bleeding noted Complications: none EBL: 0 mls specimens: none Dispo: crouch to gravity drainage. monitor output. crouch to remain in place 2 - 4 weeks to allow healing CPT 59570 T83.84XA [facility] Li Rivas FAMILY CONSUMER SCIENCE TEACHER-C [id number] LI RIVAS NP May 04, 2025 12:10
--- NOTE | 2025-05-04 13:00 | DVH ---
XY ARTER/VENOUS EMBOLIZATION, gastroduodenal artery embolization HISTORY: Recurrent upper GI bleeding with known large gastric ulcer. Acute hypotension with hemodyna ángela instability hemodynamic instability. PROCEDURE: The patient was intubated and sedated by primary team in [facility]. Informed consent was obtaine d emergently from the family members.The patient was positioned supine on the interventional table. T he right groin was prepped with chlorhexidine which was allowed to dry and then draped sterilely. Mynor e out was performed. The right common femoral artery was accessed with real-time ultrasound guidance using a micropuncture set, an image documenting patency recorded to PACS, and a 5 Fr vascular sheath placed. Technique: The Common SMA / celiac trunk was selected with a C2 catheter, which was advanced into the celiac julissa nk over the wire. SMA and celiac angiograms were performed in frontal projection. Microcatheter was a dvanced into the proper hepatic artery and selective angiogram(s) were obtained. 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 Progreat micro catheter was us ed to catheterize the gastroduodenal artery . There was some difficulty catheterizing the gastroduode nal artery due to vasospasm and small size of the vessels. Several soft micro wires were used to adele ct the gastroduodenal artery. There is a focal dissection without flow limiting stenosis in Common he patic artery during wire manipulation. Next, micro catheter was eventually advanced into the gastrodu odenal artery over the wire. Super selective angiogram of the gastroduodenal artery confirmed the pse udoaneurysm 2mm and 4mm Daigle coils were deployed through the micro catheter heart in the gastroduode nal artery. Successful packing of the pseudoaneurysm was obtained without difficulty. Completion prop er hepatic and celiac angiogram demonstrated successful exclusion of the pseudoaneurysm arising from the GDA and significantly improved flow through the common hepatic artery. Next, superior mesenteri c angiogram was obtained to evaluate back flow to the pseudoaneurysm after coil embolization. There w as no filling of the pseudoaneurysm. The decision was made to terminate the procedure at this point. The catheter/sheath were removed and the arteriotomy closed using Angioseal device following limited groin arteriogram. No immediate complication was identified. FLUOROSCOPY TIME:19.7 minutes. CONTRAST USED:90 mL Isovue 370. SEDATION: Intubated and sedated by ICU team. 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 Generalized vasospasm of the mesenteric arteries.(the patient was on 2 vasopressors at the time of th e procedure.) IMPRESSION: 1. 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
--- NOTE | 2025-05-04 14:52 | DVHPN2 ---
Assessment/Plan Assessment/Plan progress note 69 M admitted for melena, s/p scope, recurrent UGIB. HB AM 7.1. sudden change in status, patient diaphoretic, tachycardic and hypotensive. placed on trendelenburg, IV boluses. TLC placed in. large volume hematemesis and NGT showed blood. so far 800 cc in suction canister. d/w GI, IR and surg. plan for i r emblization, MTP to stabilize, possible need for emergent surgery. started on pressors. intubated for airway protection. seen today,, pressor rec decreased. lact improving. physical exam intubated sedated on mech vent mech breath sounds bloody ett and ngt s1 s2 tachy abdomen tender, vvoluntary guarding no le edema labs ekg imaging reviewed POCUS done, FAST, no free fluid, subxyphoid heart looks hyperdynamic, IVC flat assessment and plan severe anemia req massive PRBC gastric ulcer, active bleeding PNA gp vs gn? acute hypoxic RF rec mech vent acute metabolic encep hemorrhagic shock hypocalcemia tf related nova and vanc maintain map >65 levo - vaso - epi - phenyl stress dose steroid 2 large bore IV transfuse keep hb >8 IR for embolization IV bolus platelet, ffp protonix drip surg, GI on board calcium diet NPO meds dvt ppx hold condition critical prognosis poor full code crit care time 45 minutes acp 30 minutes Plan discussed with: Patient My Orders Orders - DILCIA DANIEL MD Procedure Category Date Status Time Insert Ochoa Catheter [facility] 05/03/25 In Process 15:20 Midazolam Drip 50 PHA 05/03/25 In Process Mg/50ml (Versed Drip 5 15:30 Fentanyl Drip PHA 05/03/25 In Process 2500mcg/250mlns 15:30 Rass Sedation Scale ELVIA 05/03/25 In Process 15:20 Arter/Venous XY 05/03/25 Resulted Embolization 15:51 Communication Order ORDERS 05/03/25 Transmitted 13:33 Epinephrine Hcl PHA 05/03/25 In Process 16:15 Abg W/ Co-Ox RT 05/03/25 Logged 16:16 Communication Order ORDERS 05/03/25 Transmitted 17:51 Communication Order ORDERS 05/03/25 Transmitted 17:51 * Surgical Consult CONS 05/03/25 Transmitted Ng To Lis ELVIA 05/03/25 In Process 17:51 Transfer Orders XFER 05/03/25 Transmitted 17:55 Ventilator Orders RT 05/03/25 Transmitted 18:01 Chest Portable XY 05/04/25 Resulted 04:00 Hydrocortisone PHA 05/04/25 In Process Succinate Inj 00:00 Communication Order ORDERS 05/03/25 Transmitted 22:53 Abg W/ Co-Ox RT 05/04/25 Logged 05:24 * Urology Consult CONS 05/04/25 Transmitted 09:04 Ventilator Orders RT 05/04/25 Transmitted 10:11 Date of Service: May 04, 2025 Billing Provider: DILCIA DANIEL MD Common Visit Codes: [id number] CARE 30-74 MIN DILCIA DANIEL MD May 04, 2025 14:52
[2025-05-04 17:12] LABS: Base Excess -4.7 mmol/L (-2.0-3.0)
--- NOTE | 2025-05-04 19:42 | DVHPN2 ---
Progress Note - Dictate Date Seen: May 04, 2025 Medical Necessity Reason Pt with a Central, PICC or Fol: No Subjective Patient was seen in ICU room 110 currently intubated sedated Patient is off pressors ; hemoglobin is 9.2 this morning There was minimal output from the NG tube and there does not appear to be any active bleeding or melena IR physician Dr. 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 vital signs Vital Sign Date Time Temp Pulse Resp B/P (MAP) Pulse Ox O2 Delivery O2 Flow Rate FiO2 05/04/25 18:45 98.4 77 22 115/41 (65) 100 209.1 05/04/25 18:28 30 05/04/25 17:35 Mechanical Ventilator+ 05/03/25 12:00 3 Total Intake and Output 05/03/25 05/03/25 05/04/25 15:00 23:00 07:00 Intake Total 744.25 ml 5719.973 ml 1011.425 ml Output Total 1550 ml Balance 744.25 ml 4169.973 ml 1011.425 ml medications Current Medications Medications Dose Ordered Sig/Dorene Route Start Time Stop Time Status Last Admin Dose Admin Sucralfate 1 gm QID@0600,1130,1700,2200 PO 04/28/25 17:00 05/04/25 16:46 1 GM Pantoprazole Sodium 50 ml @ 10 mls/hr Q5H IV 04/28/25 14:15 05/04/25 10:04 10 MLS/HR Norepinephrine Bitartrate 250 ml @ 3.75 mls/hr Q24H IV 05/03/25 12:15 05/04/25 15:00 18.75 MLS/HR Vasopressin 20 units/Sodium Chloride 100 ml @ 9 mls/hr Q11H7M IV 05/03/25 13:00 05/04/25 11:39 9 MLS/HR Midazolam HCl 50 ml @ 1 mls/hr Q24H IV 05/03/25 15:30 05/04/25 11:35 5 MLS/HR Fentanyl Citrate 250 ml @ 2.5 mls/hr Q24H IV 05/03/25 15:30 05/04/25 17:07 10 MLS/HR Epinephrine HCl 250 ml @ 7.5 mls/hr Q24H IV 05/03/25 16:15 05/03/25 16:15 7.5 MLS/HR Meropenem 50 ml @ 17 mls/hr Q8H IV 05/04/25 02:00 05/04/25 17:54 17 MLS/HR Vancomycin HCl 0 ml @ 0 mls/hr UD IV 05/03/25 17:45 Vancomycin HCl 250 ml @ 250 mls/hr Q12H IV 05/04/25 05:00 05/04/25 16:47 250 MLS/HR Hydrocortisone Sodium Succinate 50 mg Q6H IV 05/04/25 00:00 05/08/25 23:59 05/04/25 17:54 50 MG Amino Acids 0 ml @ 0 mls/hr PER PHARMACY IV 05/04/25 20:00 Diagnostic Test (Pha) 1 strip Q6HR 05/05/25 00:00 Insulin Human Regular FOLLOW SLIDING SCALE Q6HR SC 05/05/25 00:00 Dextrose 50 ml UD IV 05/05/25 00:00 Amino Acids/ Electrolytes/ Dextrose 1,000 ml @ 41 mls/hr DAILY@2200 IV 05/04/25 22:00 objective General: NAD, AAOX3 Chest: lung roberts clear to auscultation Heart: RRR, no murmur Abdomen: non-distended, no tenderness to palpation, +BS laboratory and microbiology Laboratory Tests 05/04/25 02:55 Test 05/04/25 02:55 Range/Units Serum Glucose 241 H 74-106 mg/dL Problems(with codes): (1) Gastric ulcer (2) GI bleed (3) Abdominal pain (4) Hypoalbuminemia (5) Hemorrhagic shock (6) Blood loss anemia Prognosis Plan Continue supportive care Patient is currently on an IV Protonix drip at 10 milligrams/hour We are going to start him on IV Clinimix at 42 mL/hour Monitor labs and check repeat CBC in a.m. Transfuse 1 unit PRBC if the hemoglobin drops less than seven Start IV iron Dietary Evaluation Review Comments: Nutrition Recommendation: 1) TPN/PN if NPO>7 days 2) Advance to soft diet as medically feasible 3) Monitor NPO status, lab values, weight trend, and I/O Expected Outcomes/Goals: To meet >75% estimated needs GI symptoms to improve Fu 2-3 days Plan discussed with: Other (ICU Nurse Hamzah) CC Plasma Assessment Blood Product Administration S: [id number] JANETT JACOBS MD May 04, 2025 19:42
[2025-05-04] MEDS ORDERED: CLINIMIX PER PHARMACY 0 ML IV SCH (20:00)
[2025-05-04] MEDS ORDERED: DEXTROSE (50%) 50ML SYRG IV PRN (22:00)
[2025-05-04] MEDS: INSULIN LISPRO (HUMAN) 100 UNITS/ML ML SC SCH (22:00)
[2025-05-04] MEDS: ACCU-CHEK COMFORT CURVE STRIP VI SCH (22:13)
[2025-05-04] MEDS: AMINO ACID INFUSION IN D10W 1,000 ML IV SCH (22:13)
--- NOTE | 2025-05-04 23:03 | DVHPN2 ---
Progress Note Date Seen: May 04, 2025 Medical Necessity Reason Pt with a Central, PICC or Fol: No Objective vital signs Vital Sign Date Time Temp Pulse Resp B/P (MAP) Pulse Ox O2 Delivery O2 Flow Rate FiO2 05/04/25 22:22 77 21 116/40 (65) 99 30 05/04/25 20:00 Mechanical Ventilator+ 05/04/25 18:45 98.4 209.1 05/03/25 12:00 3 Total Intake and Output 05/03/25 05/03/25 05/04/25 15:00 23:00 07:00 Intake Total 744.25 ml 5719.973 ml 1011.425 ml Output Total 1550 ml Balance 744.25 ml 4169.973 ml 1011.425 ml medications Current Medications Medications Dose Ordered Sig/Dorene Route Start Time Stop Time Status Last Admin Dose Admin Sucralfate 1 gm QID@0600,1130,1700,2200 PO 04/28/25 17:00 05/04/25 22:13 1 GM Pantoprazole Sodium 50 ml @ 10 mls/hr Q5H IV 04/28/25 14:15 05/04/25 20:33 10 MLS/HR Norepinephrine Bitartrate 250 ml @ 3.75 mls/hr Q24H IV 05/03/25 12:15 05/04/25 15:00 18.75 MLS/HR Vasopressin 20 units/Sodium Chloride 100 ml @ 9 mls/hr Q11H7M IV 05/03/25 13:00 05/04/25 11:39 9 MLS/HR Midazolam HCl 50 ml @ 1 mls/hr Q24H IV 05/03/25 15:30 05/04/25 22:21 5 MLS/HR Fentanyl Citrate 250 ml @ 2.5 mls/hr Q24H IV 05/03/25 15:30 05/04/25 17:07 10 MLS/HR Meropenem 50 ml @ 17 mls/hr Q8H IV 05/04/25 02:00 05/04/25 17:54 17 MLS/HR Vancomycin HCl 0 ml @ 0 mls/hr UD IV 05/03/25 17:45 Vancomycin HCl 250 ml @ 250 mls/hr Q12H IV 05/04/25 05:00 05/04/25 16:47 250 MLS/HR Hydrocortisone Sodium Succinate 50 mg Q6H IV 05/04/25 00:00 05/08/25 23:59 05/04/25 17:54 50 MG Amino Acids 0 ml @ 0 mls/hr PER PHARMACY IV 05/04/25 20:00 Amino Acids/ Electrolytes/ Dextrose 1,000 ml @ 41 mls/hr DAILY@2200 IV 05/04/25 22:00 05/04/25 22:13 41 MLS/HR Iron Sucrose 110 ml @ 110 mls/hr DAILY@1200 IV 05/05/25 12:00 05/09/25 12:59 Insulin Human Lispro Q4HR SC 05/04/25 22:00 Diagnostic Test (Pha) 1 strip Q4HR 05/04/25 22:00 05/04/25 22:13 1 STRIP Dextrose 50 ml UD PRN IV 05/04/25 22:00 laboratory and microbiology Laboratory Tests 05/04/25 02:55 Test 05/04/25 02:55 Range/Units Serum Glucose 241 H 74-106 mg/dL Microbiology Date/Time Source Procedure Growth Status 05/03/25 18:30 Blood Blood Culture - Preliminary NO GROWTH AFTER 24 HOURS OF INCUBATION. Resulted 05/03/25 13:35 Sputum Gram Stain - Final Resulted 05/03/25 13:35 Sputum Respiratory Culture - Preliminary Resulted 05/02/25 04:21 Nose MRSA Screen - Final Complete Problem List/Assessment/Plan Problem List/Assessment/Plan INTUBATED HEMODYNAMICALLY LABILE ON VASOPRESSOR NG IN PLACE NO ACTIVE BLEED H/H STABLE CONTINUE RESUSCITATION AND CLOSE OBSERVATION FAMILY AT BEDSIDE Plan discussed with: Other Dietary Evaluation Review Comments: Nutrition Recommendation: 1) TPN/PN if NPO>7 days 2) Advance to soft diet as medically feasible 3) Monitor NPO status, lab values, weight trend, and I/O Expected Outcomes/Goals: To meet >75% estimated needs GI symptoms to improve Fu 2-3 days CC Plasma Assessment Blood Product Administration S: [id number] TUNG JACOBS MD May 04, 2025 23:03
[2025-05-05] VITALS (103 sets, daily range): BP systolic 70–149; BP diastolic 33–103; PULSE 65–92; RESP 14–24; TEMP 97.9–98.6; O2SAT 98–100
[2025-05-05] MEDS ORDERED: DEXTROSE (50%) 50ML SYRG IV SCH
[2025-05-05] MEDS ORDERED: InsuLIN REG 1unit/0.01ml Soln (100units/ml) SC SCH
[2025-05-05] MEDS ORDERED: ACCU-CHEK COMFORT CURVE STRIP VI SCH
[2025-05-05 03:58] LABS: Hematocrit 22.8 % (41.0-53.0); Hemoglobin 7.5 g/dL (13.5-17.5); Mean Corpuscular Hemoglobin 30.1 pg (28.0-32.0); Mean Corpuscular Volume 91.5 fL (80.0-100.0); Nucleated Red Blood Cells % 0.1 %
[2025-05-05 04:24] LABS: Alanine Aminotransferase 12 U/L (7-40); Anion Gap 7 (5-15); BUN/Creatinine Ratio 27.6 (10.0-20.0); Blood Urea Nitrogen 21 mg/dL (9-23); Carbon Dioxide 24 mmol/L (20-31); Magnesium 2.0 mg/dL (1.6-2.6)
[2025-05-05 04:37] LABS: Albumin 2.2 g/dL (3.2-4.8); Alkaline Phosphatase 39 U/L (46-116); Bilirubin, Total 0.3 mg/dL (0.2-1.0); Calcium 7.3 mg/dL (8.7-10.4); Chloride 113 mmol/L (98-107); Glucose 149 mg/dL (74-106); Potassium 4.9 mmol/L (3.5-5.1); Sodium 144 mmol/L (136-145); Total Protein 3.9 g/dL (5.7-8.2)
--- NOTE | 2025-05-05 05:42 | DVH ---
CHEST RADIOGRAPH Indication: INTUBATED Technique: Single frontal view of the chest was obtained Comparison: XY CHEST PORTABLE on DOS: 05/04/25 FINDINGS: Lines and Tubes: The endotracheal tube terminates 4.4 cm above the regis. The right central venous c atheter terminates in the superior vena cava. The enteric tube courses below the left hemidiaphragm a nd the tip extends outside the field of view. Lungs: There is a left basilar opacity. Pleura: No effusion. No pneumothorax. Cardiomediastinal contours: Unremarkable Bones: No acute osseous abnormality. IMPRESSION: 1. Left basilar opacity which may reflect atelectasis or pneumonia.
[2025-05-05] MEDS: CALCIUM GLUC 1,000mg/50ml-NS 50 ML IV SCH (06:12)
[2025-05-05 07:16] LABS: Base Excess -3.6 mmol/L (-2.0-3.0)
--- NOTE | 2025-05-05 08:26 | ECG ---
[facility] Test Date: 2025-04-27 Test Time: 21:38:03 Pat Name: DARLENE CHAVIS Department: [facility] ED Room: [address] [place] [address] A Gender: M Peanut Grader: NATALIE : 1955 Requested By: JOSÉ MANUEL MONTEZ Order Number: [id number] Reading MD: Gaston Knight Measurements Intervals [place] Rate: 97 P: 83 RI: 113 QRS: 74 QRSD: 91 T: 54 QT: 371 QTc: 472 Interpretive Statements Sinus rhythm Borderline short RI interval Borderline repolarization abnormality Electronically Signed On 05-05-2025 9:03:50 PDT by Gaston Knight Please click the below link to view image of tracing.
--- NOTE | 2025-05-05 10:05 | DVHSR ---
APPROVED REPORT EXAM: Two-dimensional and M-mode echocardiogram with Doppler and color Doppler. Blood Pressure: 106/41 mmHg INDICATION Chest Pain RISK FACTORS Height: 5'8", Weight: 165 DIMENSIONS LVDd5.0 (3.8-5.7cm)LA (2D)3.1 (1.9-4.0cm)Aortic Root (2.0-3.7cm) LVDs3.6 (2.5-4.0cm)LA (MM) (1.9-4.0cm)Aortic Cusp Exc (1.5-2.0cm) EF (%) 52.0 (55-70%)Rt. Atrium (1.9-4.0cm)Asc. Aorta cm Mitral Valve MitralMitral Stenosis E wave0.63m/sMV Mean GR.mmHg A wave0.80m/sMV Peak GR.mmHg E/A ratio0.82D MVAcm2 DECEL [id number] 1/2 Timems Aortic Valve Aortic ValveAortic Stenosis V10.65m/Yenny Mean GR.mmHg V20.98m/Yenny Peak GR.4mmHg LVOT Diameter2.3 (1.8-2.4cm)Doppler AVA2.75cm2 Tricuspid Valve TR Velocity2.17m/s [id number] Other Information Quality : Technically LimitedRhythm : Technically limited study due to on vent. Conclusion MODERATE DEGREE LVH AND MODERATE DEGREE LV DIASTOLIC DYSFUNCTION LV EF IS 60% NORMAL VALVES NORMAL RV FUNCTION NO EFFUSION
--- NOTE | 2025-05-05 12:46 | DVHPNRES ---
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 He was initially admitted with hemorrhagic shock, requiring intubation, vasopressors (norepinephrine, vasopressin), and massive transfusion protocol. Todays Events * Cystoscope-guided Ochoa placement performed; 1100 mL urine drained resolving post-renal retention. * Remains intubated and sedated on midazolam and fentanyl drips. * Hemodynamically improving though still pressors dependent (Levo 10 g/min, Vaso 0.03 U/min). * Hemoglobin dropped to 6.7 and PRBC Transfusions are initiated * Protonix infusion continued. * Afebrile, blood cultures negative. * Vitals stable: MAP 6570 mmHg, HR 7781, RR 1924, SpO? 07529 % on FiO? 30 %. Objective vital signs Vital Sign Date Time Temp Pulse Resp B/P (MAP) Pulse Ox O2 Delivery O2 Flow Rate FiO2 05/05/25 11:33 78 22 114/47 (69) 99 30 05/05/25 06:30 98.4 209.1 05/05/25 06:00 Mechanical Ventilator+ 05/03/25 12:00 3 Total Intake and Output 05/04/25 05/04/25 05/05/25 15:00 23:00 07:00 Intake Total 581.50 ml 683.00 ml 982.50 ml Output Total 1200 ml 575 ml Balance 581.50 ml -517.00 ml 407.50 ml medications Current Medications Medications Dose Ordered Sig/Dorene Route Start Time Stop Time Status Last Admin Dose Admin Sucralfate 1 gm QID@0600,1130,1700,2200 PO 04/28/25 17:00 05/05/25 06:10 1 GM Pantoprazole Sodium 50 ml @ 10 mls/hr Q5H IV 04/28/25 14:15 05/05/25 10:40 10 MLS/HR Norepinephrine Bitartrate 250 ml @ 3.75 mls/hr Q24H IV 05/03/25 12:15 05/05/25 03:41 18.75 MLS/HR Vasopressin 20 units/Sodium Chloride 100 ml @ 9 mls/hr Q11H7M IV 05/03/25 13:00 05/05/25 10:33 9 MLS/HR Midazolam HCl 50 ml @ 1 mls/hr Q24H IV 05/03/25 15:30 05/05/25 09:14 5 MLS/HR Fentanyl Citrate 250 ml @ 2.5 mls/hr Q24H IV 05/03/25 15:30 05/04/25 17:07 10 MLS/HR Meropenem 50 ml @ 17 mls/hr Q8H IV 05/04/25 02:00 05/05/25 10:33 17 MLS/HR Vancomycin HCl 0 ml @ 0 mls/hr UD IV 05/03/25 17:45 Hydrocortisone Sodium Succinate 50 mg Q6H IV 05/04/25 00:00 05/08/25 23:59 05/05/25 06:11 50 MG Amino Acids 0 ml @ 0 mls/hr PER PHARMACY IV 05/04/25 20:00 Amino Acids/ Electrolytes/ Dextrose 1,000 ml @ 41 mls/hr DAILY@2200 IV 05/04/25 22:00 05/04/25 22:13 41 MLS/HR Iron Sucrose 110 ml @ 110 mls/hr DAILY@1200 IV 05/05/25 12:00 05/09/25 12:59 Insulin Human Lispro Q4HR SC 05/04/25 22:00 05/05/25 06:24 1 UNITS Diagnostic Test (Pha) 1 strip Q4HR 05/04/25 22:00 05/05/25 10:33 1 STRIP Dextrose 50 ml UD PRN IV 05/04/25 22:00 Vancomycin HCl 250 ml @ 250 mls/hr Q8H IV 05/05/25 13:00 Examination General: Intubated, sedated, appears critically ill but stable on support. HEENT: PERRLA; ET tube secure; oral mucosa moist. CV: Regular rate & rhythm, no murmurs. Resp: Equal chest rise; diminished bases (L > R); no wheezes/rales. Abdomen: Soft, mild epigastric tenderness, no rebound/guarding; : Ochoa in place draining clear yellow urine. Extremities: Warm, no cyanosis, trace pedal edema. Neuro: Sedated, withdraws to pain, no focal deficit. Skin: Intact, well-perfused. laboratory and microbiology Laboratory Tests 05/05/25 02:18 Test 05/05/25 02:18 Range/Units Serum Glucose 149 H 74-106 mg/dL Microbiology Date/Time Source Procedure Growth Status 05/03/25 18:30 Blood Blood Culture - Preliminary NO GROWTH AFTER 24 HOURS OF INCUBATION. Resulted 05/03/25 13:35 Sputum Gram Stain - Final Resulted 05/03/25 13:35 Sputum Respiratory Culture - Preliminary Resulted 05/02/25 04:21 Nose MRSA Screen - Final Complete Problem List/Assessment/Plan Problem List/Assessment/Plan Assessment 1. Hemorrhagic Shock (POA, ) Secondary to upper GI bleed; required multiple PRBC transfusions, vasopressors; now improving. 2. Acute Upper GI Bleed From large gastric ulcer; s/p IR coil embolization; 3. Large Prepyloric Gastric Ulcer 5 cm lesion with eschar; likely NSAID/ischemic; on Protonix + Sucralfate. 4. Acute Hypoxic Respiratory Failure due to Aspiration Pneumonia Intubated for airway protection; on vent FiO? 30 %, improving gas exchange. Basilar opacities; on Meropenem + Vanco 6. Acute Blood Loss Anemia 7. Hypocalcemia (7.3) Likely transfusion/critical illness related. 8. Hypoalbuminemia (2.2) Secondary to critical illness, malnutrition; TPN started. 9. Post-renal Urinary Retention (Resolved) Ochoa drainage 1100 mL; UO > 1 mL/kg/hr. 10.CHF duu to HFpef LV Diastolic Dysfunction (EF 60 %) Stable; monitor volume status. Plan 1. Hemodynamics / Shock * Continue Levo 10 g/min, Vaso 0.03 U/min; titrate to MAP > 65 mmHg. * Continue Hydrocortisone 50 mg IV q6h (stress-dose). * Reassess fluid responsiveness; maintain balanced fluids. * Trend lactate and urine output q6 h. 2. Gastrointestinal / Bleeding Source * Continue Protonix drip 8 mg/hr 72 h ? switch to 40 mg IV BID. * Continue Sucralfate 1 g QID. * NPO except meds; maintain NG suction. * Serial H/H q6 h, s * GI following; IR available if rebleed. 3. Respiratory * Vent: AC mode, FiO? 30 %, Vt 400 mL, RR 20, PEEP 5. * ABG q12 h; target SpO? > 94 %. * Chest physiotherapy, suction PRN, daily CXR. * Plan daily sedation vacation ? weaning trial when off pressors. 4. Infectious Disease * Continue Meropenem + Vancomycin empirically; de-escalate in 48 h if cultures remain negative. * Monitor temperature, WBC trend. 5. Renal / * Maintain Ochoa; strict I/O. * Daily renal panel. * Avoid nephrotoxins; adjust antibiotics per Cr Cl. 6. Hematology * Maintain Hgb > 8 g/dL; transfuse PRBC if < 7 g/dL or symptomatic. * Trend platelets, INR, fibrinogen. 7. Endocrine / Metabolic * Glucose checks q6 h; target 435124 mg/dL. * Replace Ca gluconate for Ca < 7.5 mg/dL. * Monitor albumin; continue TPN 42 mL/hr. 8. Nutrition * Continue IV Clinimix + electrolytes (TPN). * Transition to enteral feeds once extubated and hemodynamically stable. 9. Sedation / Analgesia * Continue Midazolam and Fentanyl drips; titrate for RASS 2 to 3. * Daily sedation interruption for neuro check when feasible. 10. Prophylaxis * DVT: sad * GI: Protonix drip + Sucralfate. * Skin: Reposition q2 h. * Line: Central-line care per protocol. Condition: Critical, improving Prognosis: Guarded Case discussed in detail with the attending physician, including the clinical presentation, diagnostic work-up, and comprehensive management plan. CRITICAL CARE TIME >45 min Plan discussed with: Spouse My Orders My Orders Orders - BRYANT GALE RESIDENT Procedure Category Date Status Time Abg W/ Co-Ox RT 05/04/25 Logged 16:56 Hemoglobin & LAB 05/05/25 Logged Hematocrit 11:49 Complete Blood Count LAB 05/06/25 Verified 04:00 Comprehensive LAB 05/06/25 Verified Metabolic Panel 04:00 Chest Xray 1 View XY 05/06/25 Transmitted 04:00 Abg W/ Co-Ox RT 05/06/25 Transmitted 04:00 Magnesium LAB 05/06/25 Verified 04:00 Dietary Evaluation Review Comments: Nutrition Recommendation: 1) TPN/PN if NPO>7 days 2) Advance to soft diet as medically feasible 3) Monitor NPO status, lab values, weight trend, and I/O Expected Outcomes/Goals: To meet >75% estimated needs GI symptoms to improve Fu 2-3 days CC Plasma Assessment Blood Product Administration S: [id number] Date of Service: May 05, 2025 Billing Provider: DILCIA DANIEL MD Common Visit Codes: 83742-[id number] CARE 30-74 MIN BRYANT GALE RESIDENT May 05, 2025 12:46 DILCIA DANIEL MD May 19, 2025 20:04
[2025-05-05 13:33] LABS: Hematocrit 20.6 % (41.0-53.0)
[2025-05-05] MEDS: IRON SUCROSE COMPLEX 110 ML IV SCH (13:42)
[2025-05-05 13:49] LABS: Hemoglobin 6.7 g/dL (13.5-17.5)
[2025-05-05] MEDS: VANCOMYCIN 1GM/250ML KIT 250 ML IV SCH (14:44)
[2025-05-05] MEDS: ACCU-CHEK COMFORT CURVE STRIP VI SCH (17:56)
[2025-05-05] MEDS: INSULIN LISPRO (HUMAN) 100 UNITS/ML ML SC SCH (17:56)
[2025-05-05 21:25] LABS: Hematocrit 27.5 % (41.0-53.0); Hemoglobin 8.9 g/dL (13.5-17.5)
--- NOTE | 2025-05-05 21:39 | DVHPN2 ---
Progress Note - Dictate Date Seen: May 05, 2025 Has the PT tested + for MRSA If YES, has PT been informed?: No Medical Necessity Reason Pt with a Central, PICC or Fol: Yes The following are medically ne: Central Line, Ochoa Catheter Subjective Patient was seen in ICU room 110 currently intubated sedated Patient is off pressors ; hemoglobin drifted down to 6.7 S/P 1 unit PRBC with a repeat hemoglobin at 8.9 There was minimal output from the NG tube and there does not appear to be any active bleeding or melena IR physician Dr. 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 vital signs Vital Sign Date Time Temp Pulse Resp B/P (MAP) Pulse Ox O2 Delivery O2 Flow Rate FiO2 05/05/25 20:49 98/44 05/05/25 20:06 84 20 99 30 05/05/25 20:00 Mechanical Ventilator+ 05/05/25 19:30 98.2 98.2 05/03/25 12:00 3 Total Intake and Output 05/04/25 05/04/25 05/05/25 15:00 23:00 07:00 Intake Total 581.50 ml 683.00 ml 982.50 ml Output Total 1200 ml 575 ml Balance 581.50 ml -517.00 ml 407.50 ml medications Current Medications Medications Dose Ordered Sig/Dorene Route Start Time Stop Time Status Last Admin Dose Admin Sucralfate 1 gm QID@0600,1130,1700,2200 PO 04/28/25 17:00 05/05/25 17:55 1 GM Pantoprazole Sodium 50 ml @ 10 mls/hr Q5H IV 04/28/25 14:15 05/05/25 16:35 10 MLS/HR Norepinephrine Bitartrate 250 ml @ 3.75 mls/hr Q24H IV 05/03/25 12:15 05/05/25 03:41 18.75 MLS/HR Vasopressin 20 units/Sodium Chloride 100 ml @ 9 mls/hr Q11H7M IV 05/03/25 13:00 05/05/25 10:33 9 MLS/HR Midazolam HCl 50 ml @ 1 mls/hr Q24H IV 05/03/25 15:30 05/05/25 19:32 5 MLS/HR Fentanyl Citrate 250 ml @ 2.5 mls/hr Q24H IV 05/03/25 15:30 05/05/25 18:07 10 MLS/HR Meropenem 50 ml @ 17 mls/hr Q8H IV 05/04/25 02:00 05/05/25 19:36 17 MLS/HR Vancomycin HCl 0 ml @ 0 mls/hr UD IV 05/03/25 17:45 Hydrocortisone Sodium Succinate 50 mg Q6H IV 05/04/25 00:00 05/08/25 23:59 05/05/25 17:55 50 MG Amino Acids 0 ml @ 0 mls/hr PER PHARMACY IV 05/04/25 20:00 Amino Acids/ Electrolytes/ Dextrose 1,000 ml @ 41 mls/hr DAILY@2200 IV 05/04/25 22:00 05/04/25 22:13 41 MLS/HR Iron Sucrose 110 ml @ 110 mls/hr DAILY@1200 IV 05/05/25 12:00 05/09/25 12:59 05/05/25 13:42 110 MLS/HR Dextrose 50 ml UD PRN IV 05/04/25 22:00 Vancomycin HCl 250 ml @ 250 mls/hr Q8H IV 05/05/25 13:00 05/05/25 20:51 250 MLS/HR Diagnostic Test (Pha) 1 strip Q6HR 05/05/25 16:30 05/05/25 17:56 1 STRIP Insulin Human Lispro Q6HR SC 05/05/25 16:30 objective General: NAD, AAOX3 Chest: lung roberts clear to auscultation Heart: RRR, no murmur Abdomen: non-distended, no tenderness to palpation, +BS laboratory and microbiology Laboratory Tests 05/05/25 21:16 05/05/25 02:18 Test 05/05/25 02:18 Range/Units Serum Glucose 149 H 74-106 mg/dL Problems(with codes): (1) Near syncope (2) Gastric ulcer (3) GI bleed (4) Abdominal pain Prognosis Plan Continue IV Protonix drip Carafate 1 g via NG tube 4 times a day IV iron therapy IV Clinimix at 42 ml/hr Monitor labs and transfuse 1 unit PRBC if hemoglobin is less than eight Await final pathology results Dietary Evaluation Review Comments: Nutrition Recommendation: 1) TPN/PN if NPO>7 days 2) Advance to soft diet as medically feasible 3) Monitor NPO status, lab values, weight trend, and I/O Expected Outcomes/Goals: To meet >75% estimated needs GI symptoms to improve Fu 2-3 days Plan discussed with: Other (ICU Nurse) CC Plasma Assessment Blood Product Administration S: [id number] JANETT JACOBS MD May 05, 2025 21:39
--- NOTE | 2025-05-05 21:42 | DVHPN2 ---
Progress Note Date Seen: May 05, 2025 Has the PT tested + for MRSA If YES, has PT been informed?: No Medical Necessity Reason Pt with a Central, PICC or Fol: Yes The following are medically ne: Central Line, Ochoa Catheter Objective vital signs Vital Sign Date Time Temp Pulse Resp B/P (MAP) Pulse Ox O2 Delivery O2 Flow Rate FiO2 05/05/25 20:49 98/44 05/05/25 20:06 84 20 99 30 05/05/25 20:00 Mechanical Ventilator+ 05/05/25 19:30 98.2 98.2 05/03/25 12:00 3 Total Intake and Output 05/04/25 05/04/25 05/05/25 15:00 23:00 07:00 Intake Total 581.50 ml 683.00 ml 982.50 ml Output Total 1200 ml 575 ml Balance 581.50 ml -517.00 ml 407.50 ml medications Current Medications Medications Dose Ordered Sig/Dorene Route Start Time Stop Time Status Last Admin Dose Admin Sucralfate 1 gm QID@0600,1130,1700,2200 PO 04/28/25 17:00 05/05/25 17:55 1 GM Pantoprazole Sodium 50 ml @ 10 mls/hr Q5H IV 04/28/25 14:15 05/05/25 16:35 10 MLS/HR Norepinephrine Bitartrate 250 ml @ 3.75 mls/hr Q24H IV 05/03/25 12:15 05/05/25 03:41 18.75 MLS/HR Vasopressin 20 units/Sodium Chloride 100 ml @ 9 mls/hr Q11H7M IV 05/03/25 13:00 05/05/25 10:33 9 MLS/HR Midazolam HCl 50 ml @ 1 mls/hr Q24H IV 05/03/25 15:30 05/05/25 19:32 5 MLS/HR Fentanyl Citrate 250 ml @ 2.5 mls/hr Q24H IV 05/03/25 15:30 05/05/25 18:07 10 MLS/HR Meropenem 50 ml @ 17 mls/hr Q8H IV 05/04/25 02:00 05/05/25 19:36 17 MLS/HR Vancomycin HCl 0 ml @ 0 mls/hr UD IV 05/03/25 17:45 Hydrocortisone Sodium Succinate 50 mg Q6H IV 05/04/25 00:00 05/08/25 23:59 05/05/25 17:55 50 MG Amino Acids 0 ml @ 0 mls/hr PER PHARMACY IV 05/04/25 20:00 Amino Acids/ Electrolytes/ Dextrose 1,000 ml @ 41 mls/hr DAILY@2200 IV 05/04/25 22:00 05/04/25 22:13 41 MLS/HR Iron Sucrose 110 ml @ 110 mls/hr DAILY@1200 IV 05/05/25 12:00 05/09/25 12:59 05/05/25 13:42 110 MLS/HR Dextrose 50 ml UD PRN IV 05/04/25 22:00 Vancomycin HCl 250 ml @ 250 mls/hr Q8H IV 05/05/25 13:00 05/05/25 20:51 250 MLS/HR Diagnostic Test (Pha) 1 strip Q6HR 05/05/25 16:30 05/05/25 17:56 1 STRIP Insulin Human Lispro Q6HR SC 05/05/25 16:30 laboratory and microbiology Laboratory Tests 05/05/25 21:16 05/05/25 02:18 Test 05/05/25 02:18 Range/Units Serum Glucose 149 H 74-106 mg/dL Microbiology Date/Time Source Procedure Growth Status 05/03/25 18:30 Blood Blood Culture - Preliminary NO GROWTH AFTER 48 HOURS OF INCUBATION. Resulted 05/03/25 13:35 Sputum Gram Stain - Final Resulted 05/03/25 13:35 Sputum Respiratory Culture - Preliminary Resulted 05/02/25 04:21 Nose MRSA Screen - Final Complete Problem List/Assessment/Plan Problem List/Assessment/Plan INTUBATED HEMODYNAMICALLY LABILE ON VASOPRESSOR NG IN PLACE NO ACTIVE BLEED H/H DOWN POSSIBLY RELATED TO HYDRATION TRANSFUSE ONE PRBC CONTINUE RESUSCITATION AND CLOSE OBSERVATION FAMILY AT BEDSIDE Plan discussed with: Other Dietary Evaluation Review Comments: Nutrition Recommendation: 1) TPN/PN if NPO>7 days 2) Advance to soft diet as medically feasible 3) Monitor NPO status, lab values, weight trend, and I/O Expected Outcomes/Goals: To meet >75% estimated needs GI symptoms to improve Fu 2-3 days CC Plasma Assessment Blood Product Administration S: [id number] TUNG JACOBS MD May 05, 2025 21:42
--- NOTE | 2025-05-05 23:57 | DVH ---
Bilateral Upper Extremity Venous Duplex Clinical History: SWELLING Comparison: None Technique: Duplex Doppler evaluation of the venous systems of the right and left lower neck and upper extremities including color Doppler and spectral/pulsed waveform analysis was performed. Findings: RIGHT SIDE: The internal jugular vein demonstrates appropriate compressibility and waveform variability. The subclavian vein is patent on color Doppler evaluation without intraluminal thrombus and demonstra radha waveform variability. The visualized portion of the brachiocephalic vein is patent on color Doppler evaluation without intr aluminal thrombus and demonstrates waveform variability. The axillary vein demonstrates appropriate compressibility and waveform variability. The brachial veins demonstrate appropriate compressibility and patency on Doppler evaluation. The basilic vein demonstrates appropriate compressibility and patency on Doppler evaluation. Cephalic vein demonstrates absent flow and is noncompressible. Generalized soft tissue edema. LEFT SIDE: The internal jugular vein demonstrates appropriate compressibility and waveform variability. The subclavian vein is patent on color Doppler evaluation without intraluminal thrombus and demonstra radha waveform variability. The visualized portion of the brachiocephalic vein is patent on color Doppler evaluation without intr aluminal thrombus and demonstrates waveform variability. The axillary vein demonstrates appropriate compressibility and waveform variability. The brachial veins demonstrate appropriate compressibility and patency on Doppler evaluation. The basilic vein demonstrates appropriate compressibility and patency on Doppler evaluation. Cephalic vein demonstrates absent flow and is noncompressible. Generalized soft tissue edema. Impression: Occlusive thrombus in both cephalic veins.
[2025-05-06] VITALS (106 sets, daily range): BP systolic 53–135; BP diastolic 32–113; PULSE 55–82; RESP 17–24; TEMP 86.5–100.2; O2SAT 97–100
[2025-05-06 03:23] LABS: Hematocrit 25.9 % (41.0-53.0); Hemoglobin 8.5 g/dL (13.5-17.5); Mean Corpuscular Hemoglobin 30.4 pg (28.0-32.0); Mean Corpuscular Volume 92.3 fL (80.0-100.0); Nucleated Red Blood Cells % 0.0 %
[2025-05-06 03:39] LABS: Alanine Aminotransferase 16 U/L (7-40); Alkaline Phosphatase 47 U/L (46-116); Anion Gap 3 (5-15); BUN/Creatinine Ratio 33.8 (10.0-20.0); Blood Urea Nitrogen 22 mg/dL (9-23); Carbon Dioxide 28 mmol/L (20-31); Magnesium 2.1 mg/dL (1.6-2.6); Potassium 4.9 mmol/L (3.5-5.1)
[2025-05-06 03:58] LABS: Albumin 2.3 g/dL (3.2-4.8); Bilirubin, Total 0.2 mg/dL (0.2-1.0); Calcium 7.7 mg/dL (8.7-10.4); Chloride 114 mmol/L (98-107); Glucose 115 mg/dL (74-106); Sodium 145 mmol/L (136-145); Total Protein 4.1 g/dL (5.7-8.2)
--- NOTE | 2025-05-06 05:53 | DVH ---
CHEST RADIOGRAPH Indication: Intubation status Technique: Single frontal view of the chest was obtained COMPARISON: XY CHEST PORTABLE on DOS: 05/05/25, XY CHEST PORTABLE on DOS: 05/04/25, XY CHEST XRAY 1 V IEW on DOS: 05/03/25, XY CHEST XRAY 1 VIEW on DOS: 05/03/25, XY CHEST PORTABLE on DOS: 05/01/25 FINDINGS: Lines and Tubes: Endotracheal tube, enteric catheter and right central venous catheter in satisfactor y position. Lungs: Unchanged mild pulmonary vascular congestion. Pleura: No effusion. No pneumothorax. Cardiomediastinal contours: Unremarkable. Bones: Unremarkable. IMPRESSION: Lines and tubes in satisfactory position. No significant interval change.
[2025-05-06] MEDS: CALCIUM GLUC 1,000mg/50ml-NS 50 ML IV ONE (06:15)
[2025-05-06 07:57] LABS: Base Excess -1.2 mmol/L (-2.0-3.0)
[2025-05-06 10:33] LABS: Hematocrit 25.4 % (41.0-53.0); Hemoglobin 8.2 g/dL (13.5-17.5)
[2025-05-06] MEDS ORDERED: TPN PER PHARMACY 0 ML IV SCH (11:00)
[2025-05-06] MEDS: FUROSEMIDE 20 MG/2 ML VIAL IV ONE (11:11)
[2025-05-06] MEDS: SODIUM PHOSPHATES 20 MEQ in SODIUM CHL 0.9% 100 ML IV ONE (12:00)
[2025-05-06] MEDS: VANCOMYCIN 750MG KIT 100 ML IV SCH (13:00)
--- NOTE | 2025-05-06 14:44 | DVHPNRES ---
Progress Note Date Seen: May 06, 2025 Resident Creating Document: BRYANT GALE RESIDENT Has the PT tested + for MRSA If YES, has PT been informed?: No Medical Necessity Reason Pt with a Central, PICC or Fol: Yes The following are medically ne: Central Line, Ochoa Catheter Subjective Review of Systems Interval changes (05/06/25): * Hemodynamically stable on norepinephrine and vasopressin; epinephrine discontinued. * Midline and arterial lines removed. * Transfused 1 unit PRBC yesterday, now Hgb at 8.2 * NG tube drained ~20 mL old blood; no active bleeding noted. * TPN (Clinimix) started today for nutritional support. * DVT ultrasound revealed occlusive thrombus in the bilateral cephalic veins; lower extremities clear. * Calcium corrected overnight with IV calcium gluconate; remains mildly low at 7.7 mg/dL. * WBC 18.1 (from 19.0), platelets 93 K, trending stable. * ABG: pH 7.30, pCO? 47.9, pO? 106.8, HCO? 24.9 ? compensated respiratory acidosis. * Chest X-ray: No interval change, no pneumothorax, ETT and lines in good position. * Creatinine 0.65, GFR 101 (renal function normal). * Received 20 mg IV Lasix once for mild positive fluid balance. * Continues on Meropenem, Vancomycin, Hydrocortisone 50 mg q6h, Pantoprazole drip, Sucralfate QID, and sedation with Midazolam and Fentanyl. * GI team following closely. Review of Systems Unable to obtain due to sedation and intubation. Nursing reports no fever, no melena, urine output adequate, no new bleeding events. Objective vital signs Vital Sign Date Time Temp Pulse Resp B/P (MAP) Pulse Ox O2 Delivery O2 Flow Rate FiO2 05/06/25 13:45 99.3 64 20 107/41 (63) 99 210.7 05/06/25 12:00 Mechanical Ventilator+ 30 30 Total Intake and Output 05/05/25 05/05/25 05/06/25 15:00 23:00 07:00 Intake Total 1200.75 ml 1690.50 ml 630.75 ml Output Total 850 ml 1750 ml Balance 1200.75 ml 840.50 ml -1119.25 ml medications Current Medications Medications Dose Ordered Sig/Dorene Route Start Time Stop Time Status Last Admin Dose Admin Sucralfate 1 gm QID@0600,1130,1700,2200 PO 04/28/25 17:00 05/06/25 11:08 1 GM Pantoprazole Sodium 50 ml @ 10 mls/hr Q5H IV 04/28/25 14:15 05/06/25 13:47 10 MLS/HR Norepinephrine Bitartrate 250 ml @ 3.75 mls/hr Q24H IV 05/03/25 12:15 05/06/25 08:52 3.75 MLS/HR Vasopressin 20 units/Sodium Chloride 100 ml @ 9 mls/hr Q11H7M IV 05/03/25 13:00 05/05/25 10:33 9 MLS/HR Midazolam HCl 50 ml @ 1 mls/hr Q24H IV 05/03/25 15:30 05/06/25 08:59 5 MLS/HR Fentanyl Citrate 250 ml @ 2.5 mls/hr Q24H IV 05/03/25 15:30 05/05/25 18:07 10 MLS/HR Meropenem 50 ml @ 17 mls/hr Q8H IV 05/04/25 02:00 05/06/25 10:30 17 MLS/HR Vancomycin HCl 0 ml @ 0 mls/hr UD IV 05/03/25 17:45 Hydrocortisone Sodium Succinate 50 mg Q6H IV 05/04/25 00:00 05/08/25 23:59 05/06/25 11:27 50 MG Iron Sucrose 110 ml @ 110 mls/hr DAILY@1200 IV 05/05/25 12:00 05/09/25 12:59 05/06/25 12:19 110 MLS/HR Dextrose 50 ml UD PRN IV 05/04/25 22:00 Diagnostic Test (Pha) 1 strip Q6HR 05/05/25 16:30 05/06/25 12:09 1 STRIP Insulin Human Lispro Q6HR SC 05/05/25 16:30 Amino Acids 0 ml @ 0 mls/hr PER PHARMACY IV 05/06/25 11:00 Fat Emulsion Intravenous 50 ml/ Multivitamins 10 ml/Chromium/ Copper/Manganese/ Zinc 1 ml/Amino Acids/Dextrose 861 ml @ 36 mls/hr [id number] IV 05/06/25 22:00 05/07/25 21:59 Vancomycin HCl 100 ml @ 100 mls/hr Q8H IV 05/06/25 13:00 05/06/25 13:00 100 MLS/HR Examination General: Intubated, sedated, critically ill but stable. HEENT: ETT and NG in place, oral mucosa moist. CV: Regular S1/S2, no murmur, MAP >65 on pressors. Resp: Equal air entry, bibasilar crackles, FiO? 30%. Abdomen: Soft, mild epigastric tenderness, NG tube with scant old blood. : Ochoa in place, clear yellow urine. Extremities: Mild edema, no cyanosis, no erythema, Neuro: Sedated, withdraws to pain, no focal deficits. Skin: Intact, warm, no rash. laboratory and microbiology Laboratory Tests 05/06/25 10:09 05/06/25 02:50 Test 05/06/25 02:50 Range/Units Serum Glucose 115 H 74-106 mg/dL Microbiology Date/Time Source Procedure Growth Status 05/03/25 18:30 Blood Blood Culture - Preliminary NO GROWTH AFTER 48 HOURS OF INCUBATION. Resulted 05/03/25 13:35 Sputum Gram Stain - Final Complete 05/03/25 13:35 Respiratory Culture - Final Citrobacter amalonaticus Complete 05/02/25 04:21 Nose MRSA Screen - Final Complete Problem List/Assessment/Plan Problem List/Assessment/Plan Assessment 1. Hemorrhagic Shock (POA, ) Secondary to upper GI bleed; required multiple PRBC transfusions, vasopressors; now improving. 2. Acute Upper GI Bleed From large gastric ulcer; s/p IR coil embolization; 3. Large Prepyloric Gastric Ulcer 5 cm lesion with eschar; likely NSAID/ischemic; on Protonix + Sucralfate. 4. Acute Hypoxic Respiratory Failure due to Aspiration Pneumonia Intubated for airway protection; on vent FiO? 30 %, improving gas exchange. Basilar opacities; on Meropenem + Vanco 6. Acute Blood Loss Anemia 7. Hypocalcemia (7.3) Likely transfusion/critical illness related. 8. Hypoalbuminemia (2.2) Secondary to critical illness, malnutrition; TPN started. 9. Post-renal Urinary Retention (Resolved) Ochoa drainage 1100 mL; UO > 1 mL/kg/hr. 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 11.Upper Extremity DVT (Cephalic Vein) Bilateral New occlusive thrombus; hemodynamically stable; start anticoagulation once bleeding risk acceptable. Plan 1. Hemodynamics / Shock * Continue Norepinephrine and Vasopressin; titrate to maintain MAP ?65 mmHg. * Wean vasopressors gradually as tolerated. * Continue Hydrocortisone 50 mg IV q6h for stress dose. * Maintain euvolemia with cautious fluids. 2. Gastrointestinal / Bleeding * Continue Pantoprazole drip 8 mg/hr ? transition to 40 mg IV BID once stable. * Sucralfate 1 g QID continued. * Monitor NG output, H/H q8h, and stool occult blood daily. * GI team actively following. * Keep NPO, Started TPN 3. Hematology / DVT * Cephalic vein thrombosis: * Hold anticoagulation until 4872 h post-stable H/H. * Elevate limb and apply warm compresses. * Transfuse PRBC if Hgb < 7 g/dL or symptomatic. * Trend platelets and coagulation daily. 4. Infectious Disease * Continue Meropenem 1 g q8h + Vancomycin per pharmacy (Day 4). * Monitor vancomycin trough before 4th dose. * Reassess need for antibiotics in 48 h if afebrile and WBC normalizes. 5. Respiratory * Maintain current vent settings: AC-VC, RR 22, TV 400 mL, FiO? 30%, PEEP 5. * ABG daily; target SpO? >94%. * Suction PRN, oral care per protocol. * Plan sedation vacation and spontaneous breathing trial once pressors off. * Chest physiotherapy for atelectasis prevention. 6. Renal / Electrolytes * Continue Ochao for strict I&O. * Monitor renal panel, calcium, phosphorus, and magnesium daily. * Replete calcium if <8.0 mg/dL. * Lasix 20 mg IV PRN for positive balance. 7. Endocrine / Glucose * Sliding-scale insulin for glucose 808831 mg/dL. * Continue monitoring q4h. 8. Nutrition / Metabolic * Continue TPN (Clinimix with electrolytes) initiated today. * Gradually advance calories as tolerated. * Monitor prealbumin and electrolytes every 3 days. 9. Sedation / Analgesia * Continue Midazolam and Fentanyl drips for sedation and analgesia. * Target RASS 2 to 3. * Daily sedation vacation to assess neurologic recovery. 10. Prophylaxis * DVT: Sequential compression devices (SCDs) until pharmacologic prophylaxis resumed. * GI: Protonix drip + Sucralfate. * Stress ulcer / adrenal protection: Continue Hydrocortisone. * Skin: Turn q2h; pressure-relieving mattress. * Line: Central-line care per protocol. Condition: Critical, improving Prognosis: Guarded Case discussed in detail with the attending physician, including the clinical presentation, diagnostic work-up, and comprehensive management plan. CRITICAL CARE TIME >45 min Plan discussed with: Other (SISTER, RN) My Orders My Orders Orders - BRYANT GALE RESIDENT Procedure Category Date Status Time Communication Order ORDERS 05/05/25 Transmitted 16:57 Tpn Per Pharmacy PHA 05/06/25 In Process 11:00 Amino Acid PHA 05/06/25 In Process Infusion... W/Fat 22:00 Tpn Per Pharmacy ELVIA 05/06/25 In Process 22:00 Triglycerides LAB 05/07/25 Verified 05:00 Complete Blood Count LAB 05/07/25 Verified 04:00 Hemoglobin & LAB 05/06/25 Logged Hematocrit 20:30 Chest Xray 1 View XY 05/07/25 Logged 04:00 Abg W/ Co-Ox RT 05/07/25 Logged 04:00 Dietary Evaluation Review Comments: Nutrition Recommendation: 1) TPN/PN if NPO>7 days 2) Advance to soft diet as medically feasible 3) Monitor NPO status, lab values, weight trend, and I/O Expected Outcomes/Goals: To meet >75% estimated needs GI symptoms to improve Fu 2-3 days CC Plasma Assessment Blood Product Administration S: [id number] Date of Service: May 06, 2025 Billing Provider: DILCIA DANIEL MD Common Visit Codes: 43866-[id number] CARE 30-74 MIN BRYANT GALE RESIDENT May 06, 2025 14:44 DILCIA DANIEL MD May 19, 2025 20:04
[2025-05-06 20:35] LABS: Hematocrit 26.3 % (41.0-53.0); Hemoglobin 8.7 g/dL (13.5-17.5)
--- NOTE | 2025-05-06 21:26 | DVHPN2 ---
Progress Note Date Seen: May 06, 2025 Has the PT tested + for MRSA If YES, has PT been informed?: No Medical Necessity Reason Pt with a Central, PICC or Fol: Yes The following are medically ne: Central Line, Ochoa Catheter Objective vital signs Vital Sign Date Time Temp Pulse Resp B/P (MAP) Pulse Ox O2 Delivery O2 Flow Rate FiO2 05/06/25 20:00 63 21 111/46 (67) 100 30 05/06/25 19:00 97.9 208.2 05/06/25 18:00 Mechanical Ventilator+ Total Intake and Output 05/05/25 05/05/25 05/06/25 15:00 23:00 07:00 Intake Total 1200.75 ml 1690.50 ml 630.75 ml Output Total 850 ml 1750 ml Balance 1200.75 ml 840.50 ml -1119.25 ml medications Current Medications Medications Dose Ordered Sig/Dorene Route Start Time Stop Time Status Last Admin Dose Admin Sucralfate 1 gm QID@0600,1130,1700,2200 PO 04/28/25 17:00 05/06/25 16:54 1 GM Pantoprazole Sodium 50 ml @ 10 mls/hr Q5H IV 04/28/25 14:15 05/06/25 19:01 10 MLS/HR Norepinephrine Bitartrate 250 ml @ 3.75 mls/hr Q24H IV 05/03/25 12:15 05/06/25 08:52 3.75 MLS/HR Vasopressin 20 units/Sodium Chloride 100 ml @ 9 mls/hr Q11H7M IV 05/03/25 13:00 05/05/25 10:33 9 MLS/HR Midazolam HCl 50 ml @ 1 mls/hr Q24H IV 05/03/25 15:30 05/06/25 19:02 5 MLS/HR Fentanyl Citrate 250 ml @ 2.5 mls/hr Q24H IV 05/03/25 15:30 05/06/25 17:01 2.5 MLS/HR Meropenem 50 ml @ 17 mls/hr Q8H IV 05/04/25 02:00 05/06/25 18:30 17 MLS/HR Vancomycin HCl 0 ml @ 0 mls/hr UD IV 05/03/25 17:45 Hydrocortisone Sodium Succinate 50 mg Q6H IV 05/04/25 00:00 05/08/25 23:59 05/06/25 18:05 50 MG Iron Sucrose 110 ml @ 110 mls/hr DAILY@1200 IV 05/05/25 12:00 05/09/25 12:59 05/06/25 12:19 110 MLS/HR Dextrose 50 ml UD PRN IV 05/04/25 22:00 Diagnostic Test (Pha) 1 strip Q6HR 05/05/25 16:30 05/06/25 18:05 1 STRIP Insulin Human Lispro Q6HR SC 05/05/25 16:30 05/06/25 18:31 1 UNITS Amino Acids 0 ml @ 0 mls/hr PER PHARMACY IV 05/06/25 11:00 Fat Emulsion Intravenous 50 ml/ Multivitamins 10 ml/Chromium/ Copper/Manganese/ Zinc 1 ml/Amino Acids/Dextrose 861 ml @ 36 mls/hr [id number] IV 05/06/25 22:00 05/07/25 21:59 Vancomycin HCl 100 ml @ 100 mls/hr Q8H IV 05/06/25 13:00 05/06/25 13:00 100 MLS/HR laboratory and microbiology Laboratory Tests 05/06/25 20:15 05/06/25 02:50 Test 05/06/25 02:50 Range/Units Serum Glucose 115 H 74-106 mg/dL Microbiology Date/Time Source Procedure Growth Status 05/03/25 18:30 Blood Blood Culture - Preliminary NO GROWTH AFTER 72 HOURS OF INCUBATION. Resulted 05/03/25 13:35 Sputum Gram Stain - Final Complete 05/03/25 13:35 Respiratory Culture - Final Citrobacter amalonaticus Complete 05/02/25 04:21 Nose MRSA Screen - Final Complete Problem List/Assessment/Plan Problem List/Assessment/Plan INTUBATED HEMODYNAMICALLY LABILE ON VASOPRESSOR BUT TRENDING DOWN NG IN PLACE NO ACTIVE BLEED H/H BETTER CONTINUE RESUSCITATION AND CLOSE OBSERVATION FAMILY AT BEDSIDE Plan discussed with: Other Dietary Evaluation Review Comments: Nutrition Recommendation: 1) TPN/PN if NPO>7 days 2) Advance to soft diet as medically feasible 3) Monitor NPO status, lab values, weight trend, and I/O Expected Outcomes/Goals: To meet >75% estimated needs GI symptoms to improve Fu 2-3 days CC Plasma Assessment Blood Product Administration S: [id number] TUNG JACOBS MD May 06, 2025 21:26
[2025-05-06] MEDS: TPN PER PHARMACY IV NR (21:36)
--- NOTE | 2025-05-06 21:56 | DVHPN2 ---
Progress Note - Dictate Date Seen: May 06, 2025 Has the PT tested + for MRSA If YES, has PT been informed?: No Medical Necessity Reason Pt with a Central, PICC or Fol: Yes The following are medically ne: Central Line, Ochoa Catheter Subjective Less than 50 mL of some blood-tinged fluid in the NG tube Patient is off pressors ; hemoglobin is stable at 8.7 There was minimal output from the NG tube and there does not appear to be any active bleeding or melena IR physician Dr. 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 vital signs Vital Sign Date Time Temp Pulse Resp B/P (MAP) Pulse Ox O2 Delivery O2 Flow Rate FiO2 05/06/25 21:00 63 20 99 30 05/06/25 20:00 111/46 (67) 05/06/25 19:00 97.9 208.2 05/06/25 18:00 Mechanical Ventilator+ Total Intake and Output 05/05/25 05/05/25 05/06/25 15:00 23:00 07:00 Intake Total 1200.75 ml 1690.50 ml 630.75 ml Output Total 850 ml 1750 ml Balance 1200.75 ml 840.50 ml -1119.25 ml medications Current Medications Medications Dose Ordered Sig/Dorene Route Start Time Stop Time Status Last Admin Dose Admin Sucralfate 1 gm QID@0600,1130,1700,2200 PO 04/28/25 17:00 05/06/25 21:36 1 GM Pantoprazole Sodium 50 ml @ 10 mls/hr Q5H IV 04/28/25 14:15 05/06/25 19:01 10 MLS/HR Norepinephrine Bitartrate 250 ml @ 3.75 mls/hr Q24H IV 05/03/25 12:15 05/06/25 08:52 3.75 MLS/HR Vasopressin 20 units/Sodium Chloride 100 ml @ 9 mls/hr Q11H7M IV 05/03/25 13:00 05/05/25 10:33 9 MLS/HR Midazolam HCl 50 ml @ 1 mls/hr Q24H IV 05/03/25 15:30 05/06/25 19:02 5 MLS/HR Fentanyl Citrate 250 ml @ 2.5 mls/hr Q24H IV 05/03/25 15:30 05/06/25 17:01 2.5 MLS/HR Meropenem 50 ml @ 17 mls/hr Q8H IV 05/04/25 02:00 05/06/25 18:30 17 MLS/HR Vancomycin HCl 0 ml @ 0 mls/hr UD IV 05/03/25 17:45 Hydrocortisone Sodium Succinate 50 mg Q6H IV 05/04/25 00:00 05/08/25 23:59 05/06/25 18:05 50 MG Iron Sucrose 110 ml @ 110 mls/hr DAILY@1200 IV 05/05/25 12:00 05/09/25 12:59 05/06/25 12:19 110 MLS/HR Dextrose 50 ml UD PRN IV 05/04/25 22:00 Diagnostic Test (Pha) 1 strip Q6HR 05/05/25 16:30 05/06/25 18:05 1 STRIP Insulin Human Lispro Q6HR SC 05/05/25 16:30 05/06/25 18:31 1 UNITS Amino Acids 0 ml @ 0 mls/hr PER PHARMACY IV 05/06/25 11:00 Fat Emulsion Intravenous 50 ml/ Multivitamins 10 ml/Chromium/ Copper/Manganese/ Zinc 1 ml/Amino Acids/Dextrose 861 ml @ 36 mls/hr [id number] IV 05/06/25 22:00 05/07/25 21:59 05/06/25 21:36 36 MLS/HR Vancomycin HCl 100 ml @ 100 mls/hr Q8H IV 05/06/25 13:00 05/06/25 21:25 100 MLS/HR objective General: NAD, AAOX3 Chest: lung roberts clear to auscultation Heart: RRR, no murmur Abdomen: non-distended, no tenderness to palpation, +BS laboratory and microbiology Laboratory Tests 05/06/25 20:15 05/06/25 02:50 Test 05/06/25 02:50 Range/Units Serum Glucose 115 H 74-106 mg/dL Problems(with codes): (1) Near syncope (2) Gastric ulcer (3) GI bleed Prognosis Plan The H&H remains stable then DC H&H every 6 hours I would recommend just flushing the NG tube with some 30 mL of water were saline and not do aggressive gastric lavage at this time Continue IV TPN, continue supportive care I will follow up patient with you Review final pathology results on EGD with biopsy Dietary Evaluation Review Comments: Nutrition Recommendation: 1) TPN/PN if NPO>7 days 2) Advance to soft diet as medically feasible 3) Monitor NPO status, lab values, weight trend, and I/O Expected Outcomes/Goals: To meet >75% estimated needs GI symptoms to improve Fu 2-3 days Plan discussed with: Other (Dr Dahl; Dr White) CC Plasma Assessment Blood Product Administration S: [id number] JANETT JACOBS MD May 06, 2025 21:56
[2025-05-07] VITALS (110 sets, daily range): BP systolic 103–136; BP diastolic 41–95; PULSE 52–119; RESP 12–22; TEMP 92.1–98.4; O2SAT 97–100
[2025-05-07 03:43] LABS: Hemoglobin 8.0 g/dL (13.5-17.5)
[2025-05-07 03:46] LABS: Hematocrit 24.1 % (41.0-53.0); Mean Corpuscular Hemoglobin 30.7 pg (28.0-32.0); Mean Corpuscular Volume 92.0 fL (80.0-100.0); Nucleated Red Blood Cells % 0.1 %
[2025-05-07 04:12] LABS: Alanine Aminotransferase 13 U/L (7-40); Alkaline Phosphatase 48 U/L (46-116); Anion Gap 6 (5-15); BUN/Creatinine Ratio 43.5 (10.0-20.0); Magnesium 2.2 mg/dL (1.6-2.6); Potassium 4.1 mmol/L (3.5-5.1)
[2025-05-07 04:18] LABS: Blood Urea Nitrogen 27 mg/dL (9-23); Carbon Dioxide 31 mmol/L (20-31); Chloride 113 mmol/L (98-107); Glucose 144 mg/dL (74-106); Sodium 150 mmol/L (136-145)
[2025-05-07 04:19] LABS: Albumin 2.3 g/dL (3.2-4.8); Bilirubin, Total 0.2 mg/dL (0.2-1.0); Calcium 7.4 mg/dL (8.7-10.4); Total Protein 4.1 g/dL (5.7-8.2)
--- NOTE | 2025-05-07 05:56 | DVH ---
CHEST RADIOGRAPH Indication: Acute hypoxic respiratory failure Technique: Single frontal view of the chest was obtained COMPARISON: XY CHEST XRAY 1 VIEW on DOS: 05/06/25, XY CHEST PORTABLE on DOS: 05/05/25, XY CHEST AMBER BLE on DOS: 05/04/25, XY CHEST XRAY 1 VIEW on DOS: 05/03/25, XY CHEST XRAY 1 VIEW on DOS: 05/03/25 FINDINGS: Lines and Tubes: Endotracheal tube, enteric catheter and right central venous catheter in satisfactor y position. Lungs: Mild congestion, unchanged. Pleura: No effusion. No pneumothorax. Cardiomediastinal contours: Unremarkable. Bones: Unremarkable. IMPRESSION: Lines and tubes in satisfactory position. No significant interval change.
--- NOTE | 2025-05-07 14:24 | DVHPNRES ---
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 Today (05/07/25): * Biopsy results: * Duodenal biopsy: Benign duodenal mucosa, intact villi, no dysplasia or malignancy. * Gastric ulcer biopsy: [id number] chronic active gastritis with ulceration, numerous H. pylori organisms, intestinal metaplasia present, no dysplasia or malignancy. * GI started triple therapy: * Ampicillin 1 g IV q6h * Azithromycin 500 mg IV daily * Levofloxacin 750 mg IV daily (covers both H. pylori and Citrobacter maltophilia respiratory isolate). * * Vancomycin and Meropenem discontinued. * Respiratory culture: Citrobacter maltophilia, sensitive to Levofloxacin. * NGT output: [id number] mL dark maroon fluid overnight (old blood). * Rectal bleeding noted this morning (bright red streaks while cleaning). * Received 1 unit PRBC overnight. * Hemoglobin 8.0 g/dL ( from 8.5), WBC 12.1 K ( from 18.1), platelets 90 K. * Electrolytes: Na 150 , K 4.1 N, Cl 113 , BUN 27 , Cr 0.62 , BUN/Cr 43 , Ca 7.4 (ionized Ca 8.8 not repleting), Phos 2.3 . * ABG: pH 7.33, pCO 47.9, HCO 24.9, pO2 98 mild compensated respiratory acidosis. * Hemodynamics: BP 112/44 (MAP 66), HR 60, RR 20, SpO? 97 % on FiO? 30 %, TV 400 mL, PEEP 5. * I/O: Intake 1.7 L / Output 2.8 L net 1.1 L (adequate diuresis). * CXR: Lines/tubes in correct position, no interval change. * Started D5W @ 30 mL/hr to correct hypernatremia. * Current infusions: Fentanyl, Midazolam, Pantoprazole drip, Vasopressin, Norepinephrine, TPN (Clinimix), D5W. * Medications: Hydrocortisone 50 mg IV q6h, Sucralfate 1 g QID, Ampicillin, Azithromycin, Levofloxacin, Insulin SS, IV Iron. * GI and Surgery actively following. Review of Systems Unable to obtain due to sedation and intubation Nursing reports no fever, stable urine output, minimal NGT blood, and small rectal bleed this morning. Objective vital signs Vital Sign Date Time Temp Pulse Resp B/P (MAP) Pulse Ox O2 Delivery O2 Flow Rate FiO2 05/07/25 13:58 123/49 05/07/25 12:24 59 20 98 30 05/07/25 10:15 97.9 208.2 05/07/25 10:00 Mechanical Ventilator+ Total Intake and Output 05/06/25 05/06/25 05/07/25 15:00 23:00 07:00 Intake Total 508.75 ml 521.50 ml 717.75 ml Output Total 1850 ml 950 ml Balance 508.75 ml -1328.50 ml -232.25 ml medications Current Medications Medications Dose Ordered Sig/Dorene Route Start Time Stop Time Status Last Admin Dose Admin Sucralfate 1 gm QID@0600,1130,1700,2200 PO 04/28/25 17:00 05/07/25 12:35 1 GM Pantoprazole Sodium 50 ml @ 10 mls/hr Q5H IV 04/28/25 14:15 05/07/25 13:47 10 MLS/HR Norepinephrine Bitartrate 250 ml @ 3.75 mls/hr Q24H IV 05/03/25 12:15 05/06/25 08:52 3.75 MLS/HR Vasopressin 20 units/Sodium Chloride 100 ml @ 9 mls/hr Q11H7M IV 05/03/25 13:00 05/05/25 10:33 9 MLS/HR Midazolam HCl 50 ml @ 1 mls/hr Q24H IV 05/03/25 15:30 05/07/25 13:58 1 MLS/HR Fentanyl Citrate 250 ml @ 2.5 mls/hr Q24H IV 05/03/25 15:30 05/07/25 13:53 2.5 MLS/HR Hydrocortisone Sodium Succinate 50 mg Q6H IV 05/04/25 00:00 05/08/25 23:59 05/07/25 12:35 50 MG Iron Sucrose 110 ml @ 110 mls/hr DAILY@1200 IV 05/05/25 12:00 05/09/25 12:59 05/07/25 12:36 110 MLS/HR Dextrose 50 ml UD PRN IV 05/04/25 22:00 Diagnostic Test (Pha) 1 strip Q6HR 05/05/25 16:30 05/07/25 12:55 1 STRIP Insulin Human Lispro Q6HR SC 05/05/25 16:30 05/06/25 18:31 1 UNITS Amino Acids 0 ml @ 0 mls/hr PER PHARMACY IV 05/06/25 11:00 Fat Emulsion Intravenous 50 ml/ Multivitamins 10 ml/Chromium/ Copper/Manganese/ Zinc 1 ml/Amino Acids/Dextrose 861 ml @ 36 mls/hr [id number] IV 05/06/25 22:00 05/07/25 21:59 05/06/25 21:36 36 MLS/HR Fat Emulsion Intravenous 100 ml/Potassium Phosphate 11 meq/ Calcium Gluconate 2.32 meq/ Multivitamins 10 ml/Chromium/ Copper/Manganese/ Zinc 1 ml/Amino Acids/Dextrose/ Purified Water 1,318.4892 ml @ 55 mls/hr [id number] IV 05/07/25 22:00 05/08/25 21:59 Ampicillin Sodium 1 gm/Sodium Chloride 100 ml @ 200 mls/hr Q6HR IV 05/07/25 18:00 UNV Azithromycin 250 ml @ 125 mls/hr DAILY IV 05/08/25 10:00 UNV Levofloxacin/ Dextrose 100 ml @ 100 mls/hr DAILY IV 05/08/25 10:00 UNV Examination General: Intubated, sedated, pale but stable. HEENT: ET tube, NG tube with dark maroon aspirate. CV: Regular, HR 60, no murmur. Resp: Bilateral air entry, clear; vent-assisted. Abdomen: Soft, mild epigastric tenderness; no rebound; rectal area with traces of blood. : Ochoa with clear yellow urine. Ext: No cyanosis; mild pedal edema; pulses 2+. Neuro: Sedated (RASS 3); pupils reactive. Skin: Warm, intact. laboratory and microbiology Laboratory Tests 05/07/25 03:00 Test 05/07/25 03:00 Range/Units Serum Glucose 144 H 74-106 mg/dL Microbiology Date/Time Source Procedure Growth Status 05/03/25 18:30 Blood Blood Culture - Preliminary NO GROWTH AFTER 72 HOURS OF INCUBATION. Resulted 05/03/25 13:35 Sputum Gram Stain - Final Complete 05/03/25 13:35 Respiratory Culture - Final Citrobacter amalonaticus Complete 05/02/25 04:21 Nose MRSA Screen - Final Complete Labs and/or images reviewed: Labs reviewed by me, Image(s) reviewed by me Problem List/Assessment/Plan Problem List/Assessment/Plan Assessment 1. Hemorrhagic Shock (POA, ) Secondary to upper GI bleed; required multiple PRBC transfusions, vasopressors; now improving. 2. Acute Upper GI Bleed From large gastric ulcer; s/p IR coil embolization; 3. 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 4. Acute Hypoxic Respiratory Failure due to Aspiration Pneumonia Intubated for airway protection; on vent FiO2 30 %, improving gas exchange. Basilar opacities; On Levofloxacin 6. Acute Blood Loss Anemia Hgb 8.0 post-transfusion; monitor q8h, transfuse if < 8 or symptomatic. 7. Hypocalcemia (7.3) Ca 7.4 (ionized 8.8), Phos 2.3; , monitor Ca. 8. Hypoalbuminemia (2.2) Secondary to critical illness, malnutrition; TPN started. 9. Post-renal Urinary Retention (Resolved) Ochoa drainage 2800 mL; UO > 1 mL/kg/hr. 10.CHF due to HFpEF LV Diastolic Dysfunction (EF 60 %) Stable; monitor volume status. 11.Upper Extremity DVT (Cephalic Vein) Bilateral New occlusive thrombus; hemodynamically stable; start anticoagulation once bleeding risk acceptable but not now. 12.Sepsis (Improving) WBC 12 K ; infection focus Citrobacter maltophilia respiratory; antibiotics adjusted 13. Hypernatremia (150) Due to TPN and diuresis; started D5W @ 30 mL/hr. Plan ([facility]) 1. Gastrointestinal / Hematology * Continue Pantoprazole drip 8 mg/hr and Sucralfate 1 g QID. * Maintain triple therapy (Ampicillin + Azithromycin + Levofloxacin) for H. pylori (14-day course). * Monitor NG output and stool color q4h. * Transfuse PRBC if Hgb < 8 g/dL or active bleed. * H/H q8h. * If rectal bleeding increases GI re-eval, consider colonoscopy once stable. * Continue IV Iron daily. 2. Infectious Disease * Discontinue Meropenem and Vancomycin. * Continue new targeted regimen (Ampicillin + Azithromycin + Levofloxacin) * Monitor WBC, fever curve, CRP. * Repeat resp culture & blood culture if temp > 100.4 F. 3. Hemodynamics / Shock * Continue Norepinephrine & Vasopressin titration for MAP > 65. * Hydrocortisone 50 mg IV q6h (stress dose). * Trend lactate and urine output q6 h. 4. Respiratory * Maintain AC-VC (400 mL, RR 20, FiO? 30 %, PEEP 5). * ABG daily; target SpO? > 94 %. * Daily spontaneous breathing trial when off pressors. * Oral care q4h; CXR daily. 5. Renal / Electrolytes * Continue TPN + D5W 30 mL/hr for free water correction. * Monitor sodium q6 h; target < 145 mEq/L. * Replete phosphorus (K-Phos IV if < 2.5). * Hold calcium replacement unless ionized < 8.0. * Maintain strict I&O; Ochoa to gravity. 6. Endocrine / Nutrition * Continue TPN (Clinimix); monitor daily electrolytes. * Sliding-scale insulin for BG 175590 mg/dL. * Monitor triglycerides and pre-albumin every 3 days. 7. Hematology / Coagulation * Platelets 90 K: trend daily. * Heparin SQ for DVT prophylaxis to resume when no active bleed 48 h. * Continue SCDs until pharmacologic prophylaxis resumed. 8. Neurology / Sedation * Continue Midazolam and Fentanyl drips (target RASS 2 to 3). * Daily sedation vacation if hemodynamically stable. 9. Prophylaxis * GI: Protonix drip + Sucralfate. * DVT: SCDs * Skin: Reposition q2 h; barrier ointment. * Line care: Central-line bundle compliance Code Status : Full Code Condition: Critical, improving Prognosis: Guarded Case discussed in detail with the attending physician Dr. Bertrand, including the clinical presentation, diagnostic work-up, and comprehensive management plan. The patient's sister was present for the discussion and demonstrated understanding of his condition and the proposed plan. Goals of care discussed with the patient's sister for 22 minutes; full code. CRITICAL CARE TIME excluding procedures: 110 minutes Plan discussed with: Other (RN; Sister) My Orders My Orders Orders - BRYANT GALE RESIDENT Procedure Category Date Status Time Chest Xray 1 View XY 05/07/25 Resulted 04:00 Abg W/ Co-Ox RT 05/07/25 Logged 04:00 Amino Acid PHA 05/07/25 In Process Infusion... W/Fat 22:00 Comprehensive LAB 05/08/25 Verified Metabolic Panel 05:00 Phosphorus LAB 05/08/25 Verified 05:00 Magnesium LAB 05/08/25 Verified 05:00 Tpn Per Pharmacy [facility] 05/07/25 In Process 22:00 Ampicillin Inj PHA 05/07/25 Logged 18:00 Azithromycin 500mg/ PHA 05/08/25 Logged 250ml (Zithromax 50 10:00 Levofloxacin 500mg PHA 05/08/25 Logged (Levaquin 500mg/ 100m 10:00 Complete Blood Count LAB 05/08/25 Verified 04:00 Comprehensive LAB 05/08/25 Verified Metabolic Panel 04:00 Chest Xray 1 View XY 05/08/25 Logged 04:00 Abg W/ Co-Ox RT 05/08/25 Logged 04:00 Dietary Evaluation Review Comments: Nutrition Recommendation: 1) TPN/PN if NPO>7 days 2) Advance to soft diet as medically feasible 3) Monitor NPO status, lab values, weight trend, and I/O Expected Outcomes/Goals: To meet >75% estimated needs GI symptoms to improve Fu 2-3 days Critical Care Time (mins): 110 CC Plasma Assessment Blood Product Administration S: [id number] Date of Service: May 07, 2025 Billing Provider: BETTYE BERTRAND MD Common Visit Codes: 75417-[id number] CARE 30-74 MIN (110 minutes), 98090-[id number] CARE-EACH +30MIN Secondary Visit Codes: 45145-QFSIPFRR CARE PLAN 30 MINUTES (22 minutes) Addendum Addendum Addendum I was physically present for the allen portions of the service provided to patient by THE RESIDENT. I have reviewed the documentation, discussed the case with resident and agree with the resident's documentation except as noted. Also the patient's clinical case was discussed with the patient's nurse. This medical document was created using an electronic medical record system with computerized dictation system. Although this document has been carefully reviewed, there might still be some phonetic and typographical errors. These areas are purely typographical due to imperfections of the software programs, and do not reflect any compromise in the patient's medical care. Late signature. BRYANT GALE RESIDENT May 07, 2025 14:23 ANDER GLEASON May 08, 2025 07:12 BETTYE BERTRAND MD May 08, 2025 10:30
[2025-05-07] MEDS: D5W 5% 1,000 ML IV SCH (16:08)
[2025-05-07] MEDS: AZITHROMYCIN 500MG/ 250ML 250 ML IV SCH (17:15)
[2025-05-07 17:30] LABS: Hematocrit 27.2 % (41.0-53.0); Hemoglobin 9.0 g/dL (13.5-17.5)
[2025-05-07] MEDS ORDERED: AMPICILLIN INJ 1 GM in SODIUM CHL 0.9% 100 ML IV SCH (18:00)
[2025-05-07] MEDS: AMPICILLIN INJ 1 GM in SODIUM CHL 0.9% 100 ML IV SCH (19:02)
--- NOTE | 2025-05-07 20:49 | DVHPN2 ---
Progress Note - Dictate Date Seen: May 07, 2025 Has the PT tested + for MRSA If YES, has PT been informed?: No Medical Necessity Reason Pt with a Central, PICC or Fol: Yes The following are medically ne: Central Line, Ochoa Catheter Subjective Patient had an episode of maroon stool last night and there was about 150 cc blood-tinged fluid in the NG tube However today the nurse reports that when she cleaned in the morning there was only a smear of stool and blood Patient is off pressors ; hemoglobin had drifted down to 8.0, patient received 1 unit PRBC in the hemoglobin is now nine Pathology of the ulcer showed intestinal metaplasia and numerous H.pylori, there was no dysplasia or malignancy IR physician Dr. 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 vital signs Vital Sign Date Time Temp Pulse Resp B/P (MAP) Pulse Ox O2 Delivery O2 Flow Rate FiO2 05/07/25 18:45 97.5 66 19 131/54 (79) 99 207.5 05/07/25 18:37 30 05/07/25 18:00 Mechanical Ventilator+ Total Intake and Output 05/06/25 05/06/25 05/07/25 15:00 23:00 07:00 Intake Total 508.75 ml 521.50 ml 717.75 ml Output Total 1850 ml 950 ml Balance 508.75 ml -1328.50 ml -232.25 ml medications Current Medications Medications Dose Ordered Sig/Dorene Route Start Time Stop Time Status Last Admin Dose Admin Sucralfate 1 gm QID@0600,1130,1700,2200 PO 04/28/25 17:00 05/07/25 18:07 1 GM Pantoprazole Sodium 50 ml @ 10 mls/hr Q5H IV 04/28/25 14:15 05/07/25 18:29 10 MLS/HR Norepinephrine Bitartrate 250 ml @ 3.75 mls/hr Q24H IV 05/03/25 12:15 05/06/25 08:52 3.75 MLS/HR Vasopressin 20 units/Sodium Chloride 100 ml @ 9 mls/hr Q11H7M IV 05/03/25 13:00 05/05/25 10:33 9 MLS/HR Midazolam HCl 50 ml @ 1 mls/hr Q24H IV 05/03/25 15:30 05/07/25 13:58 4 MLS/HR Fentanyl Citrate 250 ml @ 2.5 mls/hr Q24H IV 05/03/25 15:30 05/07/25 13:53 10 MLS/HR Hydrocortisone Sodium Succinate 50 mg Q6H IV 05/04/25 00:00 05/08/25 23:59 05/07/25 18:12 50 MG Iron Sucrose 110 ml @ 110 mls/hr DAILY@1200 IV 05/05/25 12:00 05/09/25 12:59 05/07/25 12:36 110 MLS/HR Dextrose 50 ml UD PRN IV 05/04/25 22:00 Diagnostic Test (Pha) 1 strip Q6HR 05/05/25 16:30 05/07/25 18:15 1 STRIP Insulin Human Lispro Q6HR SC 05/05/25 16:30 05/07/25 18:25 1 UNITS Amino Acids 0 ml @ 0 mls/hr PER PHARMACY IV 05/06/25 11:00 Fat Emulsion Intravenous 50 ml/ Multivitamins 10 ml/Chromium/ Copper/Manganese/ Zinc 1 ml/Amino Acids/Dextrose 861 ml @ 36 mls/hr [id number] IV 05/06/25 22:00 05/07/25 21:59 05/06/25 21:36 36 MLS/HR Fat Emulsion Intravenous 100 ml/Potassium Phosphate 11 meq/ Calcium Gluconate 2.32 meq/ Multivitamins 10 ml/Chromium/ Copper/Manganese/ Zinc 1 ml/Amino Acids/Dextrose/ Purified Water 1,318.4892 ml @ 55 mls/hr [id number] IV 05/07/25 22:00 05/08/25 21:59 Ampicillin Sodium 1 gm/Sodium Chloride 100 ml @ 200 mls/hr Q6HR IV 05/07/25 18:00 05/07/25 19:02 200 MLS/HR Azithromycin 250 ml @ 125 mls/hr DAILY IV 05/07/25 15:30 05/07/25 17:15 125 MLS/HR Levofloxacin/ Dextrose 100 ml @ 100 mls/hr DAILY IV 05/07/25 15:30 05/07/25 16:27 100 MLS/HR Dextrose 1,000 ml @ 30 mls/hr Q24H IV 05/07/25 15:30 05/08/25 15:30 05/07/25 16:08 30 MLS/HR objective General: Intubated sedated in ICU Chest: lung roberts clear to auscultation Heart: RRR, no murmur Abdomen: non-distended, no tenderness to palpation, +BS Ext no c/c/e laboratory and microbiology Laboratory Tests 05/07/25 16:56 05/07/25 03:00 Test 05/07/25 03:00 Range/Units Serum Glucose 144 H 74-106 mg/dL Problems(with codes): (1) Near syncope (2) Gastric ulcer (3) GI bleed (4) Abdominal pain (5) Blood loss anemia Prognosis Plan Continue IV Protonix drip IV ampicillin 1 g Q 12 hrs IV azithromycin 500 mg q.12 hours IV Levaquin 500 mg daily Start IV iron supplementation Continue to monitor labs Continue supportive care for now I will consider repeat endoscopy if the patient continues to rebleed Surgical consult is on standby also monitoring the patient closely Dietary Evaluation Review Comments: Nutrition Recommendation: 1) TPN/PN if NPO>7 days 2) Advance to soft diet as medically feasible 3) Monitor NPO status, lab values, weight trend, and I/O Expected Outcomes/Goals: To meet >75% estimated needs GI symptoms to improve Fu 2-3 days Plan discussed with: Other (ICU Nurse and family at bedside) CC Plasma Assessment Blood Product Administration S: [id number] JANETT JACOBS MD May 07, 2025 20:49
[2025-05-07] MEDS: FAT EMULSION IV NR (21:47)
[2025-05-07] MEDS: CALCIUM GLUC IV NR (21:47)
[2025-05-07] MEDS: [UNRECOGNIZED DRUG - OTHER] IV NR (21:47)
[2025-05-07] MEDS: POTASSIUM PHOSPHATE IV NR (21:47)
[2025-05-07 21:57] LABS: Hematocrit 27.1 % (41.0-53.0); Hemoglobin 9.0 g/dL (13.5-17.5)
--- NOTE | 2025-05-07 23:12 | DVHPN2 ---
Progress Note Date Seen: May 07, 2025 Has the PT tested + for MRSA If YES, has PT been informed?: No Medical Necessity Reason Pt with a Central, PICC or Fol: Yes The following are medically ne: Central Line, Ochoa Catheter Objective vital signs Vital Sign Date Time Temp Pulse Resp B/P (MAP) Pulse Ox O2 Delivery O2 Flow Rate FiO2 05/07/25 22:23 61 20 123/45 (71) 100 30 05/07/25 22:00 Mechanical Ventilator+ 05/07/25 22:00 97.9 208.2 Total Intake and Output 05/06/25 05/06/25 05/07/25 15:00 23:00 07:00 Intake Total 508.75 ml 521.50 ml 717.75 ml Output Total 1850 ml 950 ml Balance 508.75 ml -1328.50 ml -232.25 ml medications Current Medications Medications Dose Ordered Sig/Dorene Route Start Time Stop Time Status Last Admin Dose Admin Sucralfate 1 gm QID@0600,1130,1700,2200 PO 04/28/25 17:00 05/07/25 21:47 1 GM Pantoprazole Sodium 50 ml @ 10 mls/hr Q5H IV 04/28/25 14:15 05/07/25 18:29 10 MLS/HR Norepinephrine Bitartrate 250 ml @ 3.75 mls/hr Q24H IV 05/03/25 12:15 05/06/25 08:52 3.75 MLS/HR Vasopressin 20 units/Sodium Chloride 100 ml @ 9 mls/hr Q11H7M IV 05/03/25 13:00 05/05/25 10:33 9 MLS/HR Midazolam HCl 50 ml @ 1 mls/hr Q24H IV 05/03/25 15:30 05/07/25 13:58 4 MLS/HR Fentanyl Citrate 250 ml @ 2.5 mls/hr Q24H IV 05/03/25 15:30 05/07/25 13:53 10 MLS/HR Hydrocortisone Sodium Succinate 50 mg Q6H IV 05/04/25 00:00 05/08/25 23:59 05/07/25 18:12 50 MG Dextrose 50 ml UD PRN IV 05/04/25 22:00 Diagnostic Test (Pha) 1 strip Q6HR 05/05/25 16:30 10/17/25 18:15 1 STRIP Insulin Human Lispro Q6HR SC 05/05/25 16:30 05/07/25 18:25 1 UNITS Amino Acids 0 ml @ 0 mls/hr PER PHARMACY IV 05/06/25 11:00 Fat Emulsion Intravenous 100 ml/Potassium Phosphate 11 meq/ Calcium Gluconate 2.32 meq/ Multivitamins 10 ml/Chromium/ Copper/Manganese/ Zinc 1 ml/Amino Acids/Dextrose/ Purified Water 1,318.4892 ml @ 55 mls/hr [id number] IV 05/07/25 22:00 05/08/25 21:59 05/07/25 21:47 55 MLS/HR Ampicillin Sodium 1 gm/Sodium Chloride 100 ml @ 200 mls/hr Q6HR IV 05/07/25 18:00 05/07/25 19:02 200 MLS/HR Azithromycin 250 ml @ 125 mls/hr DAILY IV 05/07/25 15:30 05/07/25 17:15 125 MLS/HR Levofloxacin/ Dextrose 100 ml @ 100 mls/hr DAILY IV 05/07/25 15:30 05/07/25 16:27 100 MLS/HR Dextrose 1,000 ml @ 30 mls/hr Q24H IV 05/07/25 15:30 05/08/25 15:30 05/07/25 16:08 30 MLS/HR Iron Sucrose 110 ml @ 110 mls/hr DAILY@1200 IV 05/08/25 12:00 05/12/25 12:59 laboratory and microbiology Laboratory Tests 05/07/25 21:45 05/07/25 03:00 Test 05/07/25 03:00 Range/Units Serum Glucose 144 H 74-106 mg/dL Microbiology Date/Time Source Procedure Growth Status 05/03/25 18:30 Blood Blood Culture - Preliminary NO GROWTH AFTER 72 HOURS OF INCUBATION. Resulted 05/03/25 13:35 Sputum Gram Stain - Final Complete 05/03/25 13:35 Respiratory Culture - Final Citrobacter amalonaticus Complete 05/02/25 04:21 Nose MRSA Screen - Final Complete Problem List/Assessment/Plan Problem List/Assessment/Plan INTUBATED HEMODYNAMICALLY LABILE ON VASOPRESSOR BUT TRENDING DOWN NG IN PLACE NO ACTIVE BLEED H/H BETTER CONTINUE RESUSCITATION AND CLOSE OBSERVATION FAMILY AT BEDSIDE AND UPDATED WITH DETAILED EXPLANATION OVER THE PHONE WELL Plan discussed with: Other Dietary Evaluation Review Comments: Nutrition Recommendation: 1) TPN/PN if NPO>7 days 2) Advance to soft diet as medically feasible 3) Monitor NPO status, lab values, weight trend, and I/O Expected Outcomes/Goals: To meet >75% estimated needs GI symptoms to improve Fu 2-3 days CC Plasma Assessment Blood Product Administration S: [id number] TUNG JACOBS MD May 07, 2025 23:12
[2025-05-08] VITALS (105 sets, daily range): BP systolic 119–192; BP diastolic 41–85; PULSE 50–126; RESP 16–26; TEMP 96.1–99; O2SAT 97–100
[2025-05-08 04:29] LABS: Hematocrit 27.4 % (41.0-53.0); Hemoglobin 9.2 g/dL (13.5-17.5); Mean Corpuscular Hemoglobin 30.6 pg (28.0-32.0); Mean Corpuscular Volume 91.0 fL (80.0-100.0); Nucleated Red Blood Cells % 0.1 %
[2025-05-08 04:40] LABS: Alanine Aminotransferase 20 U/L (7-40); Alkaline Phosphatase 52 U/L (46-116); Anion Gap 6 (5-15); BUN/Creatinine Ratio 40.3 (10.0-20.0); Magnesium 2.2 mg/dL (1.6-2.6); Potassium 3.7 mmol/L (3.5-5.1)
[2025-05-08 04:42] LABS: Bilirubin, Total 0.3 mg/dL (0.2-1.0)
[2025-05-08 04:43] LABS: Albumin 2.3 g/dL (3.2-4.8); Blood Urea Nitrogen 25 mg/dL (9-23); Calcium 7.3 mg/dL (8.7-10.4); Carbon Dioxide 32 mmol/L (20-31); Chloride 112 mmol/L (98-107); Glucose 141 mg/dL (74-106); Sodium 150 mmol/L (136-145); Total Protein 4.1 g/dL (5.7-8.2)
--- NOTE | 2025-05-08 06:16 | DVH ---
CHEST RADIOGRAPH Indication: Acute hypoxic respiratory failure Technique: Single frontal view of the chest was obtained COMPARISON: XY CHEST XRAY 1 VIEW on DOS: 05/07/25, XY CHEST XRAY 1 VIEW on DOS: 05/06/25, XY CHEST PO RTABLE on DOS: 05/05/25, XY CHEST PORTABLE on DOS: 05/04/25, XY CHEST XRAY 1 VIEW on DOS: 05/03/25 FINDINGS: Lines and Tubes: Unchanged. Lungs: Mildly progressive right basilar pulmonary airspace disease and small pleural effusion. No pneumothorax. Cardiomediastinal contours: Unremarkable Bones: Unremarkable IMPRESSION: 1. Mildly progressive right basilar pulmonary airspace disease and small pleural effusion. 2. Lines and tubes unchanged.
[2025-05-08 06:55] LABS: Base Excess 3.4 mmol/L (-2.0-3.0)
--- NOTE | 2025-05-08 09:16 | DVHPN2 ---
Progress Note Date Seen: May 08, 2025 Has the PT tested + for MRSA If YES, has PT been informed?: No Medical Necessity Reason Pt with a Central, PICC or Fol: Yes The following are medically ne: Central Line, Ochoa Catheter Objective vital signs Vital Sign Date Time Temp Pulse Resp B/P (MAP) Pulse Ox O2 Delivery O2 Flow Rate FiO2 05/08/25 07:30 87 23 157/66 (96) 99 30 05/08/25 06:45 98.2 208.8 05/08/25 06:00 Mechanical Ventilator+ Total Intake and Output 05/07/25 05/07/25 05/08/25 15:00 23:00 07:00 Intake Total 834 ml 652 ml 917.0 ml Output Total 725 ml 750 ml Balance 834 ml -73 ml 167.0 ml medications Current Medications Medications Dose Ordered Sig/Dorene Route Start Time Stop Time Status Last Admin Dose Admin Sucralfate 1 gm QID@0600,1130,1700,2200 PO 04/28/25 17:00 05/08/25 06:00 1 GM Pantoprazole Sodium 50 ml @ 10 mls/hr Q5H IV 04/28/25 14:15 05/08/25 05:19 10 MLS/HR Norepinephrine Bitartrate 250 ml @ 3.75 mls/hr Q24H IV 05/03/25 12:15 05/06/25 08:52 3.75 MLS/HR Vasopressin 20 units/Sodium Chloride 100 ml @ 9 mls/hr Q11H7M IV 05/03/25 13:00 05/05/25 10:33 9 MLS/HR Midazolam HCl 50 ml @ 1 mls/hr Q24H IV 05/03/25 15:30 05/07/25 13:58 4 MLS/HR Fentanyl Citrate 250 ml @ 2.5 mls/hr Q24H IV 05/03/25 15:30 05/07/25 13:53 10 MLS/HR Hydrocortisone Sodium Succinate 50 mg Q6H IV 05/04/25 00:00 05/08/25 23:59 05/08/25 05:59 50 MG Dextrose 50 ml UD PRN IV 05/04/25 22:00 Diagnostic Test (Pha) 1 strip Q6HR 05/05/25 16:30 05/08/25 06:00 1 STRIP Insulin Human Lispro Q6HR SC 05/05/25 16:30 05/07/25 18:25 1 UNITS Amino Acids 0 ml @ 0 mls/hr PER PHARMACY IV 05/06/25 11:00 Fat Emulsion Intravenous 100 ml/Potassium Phosphate 11 meq/ Calcium Gluconate 2.32 meq/ Multivitamins 10 ml/Chromium/ Copper/Manganese/ Zinc 1 ml/Amino Acids/Dextrose/ Purified Water 1,318.4892 ml @ 55 mls/hr [id number] IV 05/07/25 22:00 05/08/25 21:59 05/07/25 21:47 55 MLS/HR Ampicillin Sodium 1 gm/Sodium Chloride 100 ml @ 200 mls/hr Q6HR IV 05/07/25 18:00 05/08/25 06:00 200 MLS/HR Azithromycin 250 ml @ 125 mls/hr DAILY IV 05/07/25 15:30 05/07/25 17:15 125 MLS/HR Levofloxacin/ Dextrose 100 ml @ 100 mls/hr DAILY IV 05/07/25 15:30 05/07/25 16:27 100 MLS/HR Dextrose 1,000 ml @ 30 mls/hr Q24H IV 05/07/25 15:30 05/08/25 15:30 05/07/25 16:08 30 MLS/HR Iron Sucrose 110 ml @ 110 mls/hr DAILY@1200 IV 05/08/25 12:00 05/12/25 12:59 laboratory and microbiology Laboratory Tests 05/08/25 03:45 Test 05/08/25 03:45 Range/Units Serum Glucose 141 H 74-106 mg/dL Microbiology Date/Time Source Procedure Growth Status 05/03/25 18:30 Blood Blood Culture - Preliminary NO GROWTH AFTER 72 HOURS OF INCUBATION. Resulted 05/03/25 13:35 Sputum Gram Stain - Final Complete 05/03/25 13:35 Respiratory Culture - Final Citrobacter amalonaticus Complete 05/02/25 04:21 Nose MRSA Screen - Final Complete Problem List/Assessment/Plan Problem List/Assessment/Plan INTUBATED HEMODYNAMICALLY STABLE NG IN PLACE NO ACTIVE BLEED H/H BETTER PRBC TRANSFUSED CONTINUE RESUSCITATION AND CLOSE OBSERVATION Plan discussed with: Other Dietary Evaluation Review Comments: Nutrition Recommendation: 1) TPN/PN if NPO>7 days 2) Advance to soft diet as medically feasible 3) Monitor NPO status, lab values, weight trend, and I/O Expected Outcomes/Goals: To meet >75% estimated needs GI symptoms to improve Fu 2-3 days CC Plasma Assessment Blood Product Administration S: [id number] TUNG JACOBS MD May 08, 2025 09:16
[2025-05-08] MEDS ORDERED: AZITHROMYCIN 500MG/ 250ML 250 ML IV SCH (10:00)
[2025-05-08 10:20] LABS: Hematocrit 29.1 % (41.0-53.0); Hemoglobin 9.6 g/dL (13.5-17.5)
--- NOTE | 2025-05-08 12:44 | DVHPNRES ---
Progress Note Date Seen: May 08, 2025 Resident Creating Document: BRYANT GALE RESIDENT Has the PT tested + for MRSA If YES, has PT been informed?: No Medical Necessity Reason Pt with a Central, PICC or Fol: Yes The following are medically ne: Central Line, Ochoa Catheter Subjective Review of Systems This 69-year-old male with massive upper gastrointestinal bleed secondary to a large prepyloric gastric ulcer (5 cm, H. pylori positive) complicated by hemorrhagic shock and respiratory failure remains intubated and sedated in the ICU. Today (05/08/25): * Hemoglobin 9.2 g/dL, up from 8.7 yesterday ? stable. * WBC 10.9 K (down from 12.1) improving inflammatory response. * Platelets 97 K (slightly up from 93 K). * RBC 3.0 M; anemia improving. * NGT output minimal (50 mL dark residue). * Urine output: 700 mL overnight; total 24-hr output 1475 mL, intake 2464 mL ? net +989 mL, urine output 0.74 mL/kg/hr. * Electrolytes: * Na 150 (hypernatremia persists) * K 3.7 normal * Cl 112 * CO? 32 (metabolic alkalosis component) * BUN 25 , Cr 0.62 ?, GFR 103 ? normal renal function * Albumin 2.3 (chronic hypoalbuminemia) * Ca 7.3 , corrected Ca normal * Phosphorus 1.2 replenished with 22 mEq K-Phos IV * ABG: pH 7.41, pCO 46.3, HCO? 28.8, pO 93.9, O? sat 96.9% compensated metabolic alkalosis. * Chest X-ray: Mild progression of right basilar opacities with small pleural effusion; tubes and lines in place. * Sedation: Continuing Versed and Fentanyl; plan to wean sedation and attempt spontaneous breathing trials on tomorrow or Saturday if H/H remains stable. * Hemodynamics: Stable without pressors (norepinephrine, vasopressin); MAP 6870 mmHg, HR 60 bpm, RR 20 bpm. * On triple therapy (Ampicillin + Azithromycin + Levofloxacin) for H. pylori and Citrobacter pneumonia; afebrile and clinically improving. * Receiving: TPN (Clinimix), Pantoprazole drip, Sucralfate, Hydrocortisone 50 mg IV q6h, Insulin SS, Iron IV, D5W at 30 cc/hr for Na 150. Overall: Patient improving hemodynamically and hematologically; mild pulmonary congestion; metabolic alkalosis and hypernatremia under correction; plan to continue sedation Review of Systems Unable to obtain due to sedation and intubation.?Nursing notes: no fever, NGT minimal dark output, no new rectal bleeding, urine clear yellow, stable vitals. Objective vital signs Vital Sign Date Time Temp Pulse Resp B/P (MAP) Pulse Ox O2 Delivery O2 Flow Rate FiO2 05/08/25 12:00 30 05/08/25 12:00 98.6 61 20 126/47 (73) 99 209.5 05/08/25 10:00 Mechanical Ventilator+ Total Intake and Output 05/07/25 05/07/25 05/08/25 15:00 23:00 07:00 Intake Total 834 ml 652 ml 925.5 ml Output Total 725 ml 750 ml Balance 834 ml -73 ml 175.5 ml medications Current Medications Medications Dose Ordered Sig/Dorene Route Start Time Stop Time Status Last Admin Dose Admin Sucralfate 1 gm QID@0600,1130,1700,2200 PO 04/28/25 17:00 05/08/25 06:00 1 GM Pantoprazole Sodium 50 ml @ 10 mls/hr Q5H IV 04/28/25 14:15 05/08/25 10:07 10 MLS/HR Norepinephrine Bitartrate 250 ml @ 3.75 mls/hr Q24H IV 05/03/25 12:15 05/06/25 08:52 3.75 MLS/HR Vasopressin 20 units/Sodium Chloride 100 ml @ 9 mls/hr Q11H7M IV 05/03/25 13:00 05/05/25 10:33 9 MLS/HR Midazolam HCl 50 ml @ 1 mls/hr Q24H IV 05/03/25 15:30 05/08/25 10:22 5 MLS/HR Fentanyl Citrate 250 ml @ 2.5 mls/hr Q24H IV 05/03/25 15:30 05/07/25 13:53 10 MLS/HR Hydrocortisone Sodium Succinate 50 mg Q6H IV 05/04/25 00:00 05/08/25 23:59 05/08/25 05:59 50 MG Dextrose 50 ml UD PRN IV 05/04/25 22:00 Diagnostic Test (Pha) 1 strip Q6HR 05/05/25 16:30 05/08/25 06:00 1 STRIP Insulin Human Lispro Q6HR SC 05/05/25 16:30 05/07/25 18:25 1 UNITS Amino Acids 0 ml @ 0 mls/hr PER PHARMACY IV 05/06/25 11:00 Fat Emulsion Intravenous 100 ml/Potassium Phosphate 11 meq/ Calcium Gluconate 2.32 meq/ Multivitamins 10 ml/Chromium/ Copper/Manganese/ Zinc 1 ml/Amino Acids/Dextrose/ Purified Water 1,318.4892 ml @ 55 mls/hr [id number] IV 05/07/25 22:00 05/08/25 21:59 05/07/25 21:47 55 MLS/HR Ampicillin Sodium 1 gm/Sodium Chloride 100 ml @ 200 mls/hr Q6HR IV 05/07/25 18:00 05/08/25 06:00 200 MLS/HR Azithromycin 250 ml @ 125 mls/hr DAILY IV 05/07/25 15:30 05/08/25 10:12 125 MLS/HR Levofloxacin/ Dextrose 100 ml @ 100 mls/hr DAILY IV 05/07/25 15:30 05/07/25 16:27 100 MLS/HR Dextrose 1,000 ml @ 30 mls/hr Q24H IV 05/07/25 15:30 05/08/25 15:30 05/07/25 16:08 30 MLS/HR Iron Sucrose 110 ml @ 110 mls/hr DAILY@1200 IV 05/08/25 12:00 05/12/25 12:59 Fat Emulsion Intravenous 150 ml/Potassium Phosphate 22 meq/ Calcium Gluconate 2.32 meq/ Multivitamins 10 ml/Chromium/ Copper/Manganese/ Zinc 1 ml/Amino Acids/Dextrose/ Purified Water 1,470.9892 ml @ 61 mls/hr Q24H7M IV 05/08/25 22:00 05/09/25 21:59 Examination General: Intubated, sedated, stable on vent. HEENT: ETT and NGT in place; pupils equal/reactive. CV: RRR, no murmurs, warm extremities, good pulses. Resp: Bilateral air entry, coarse breath sounds at bases. Abdomen: Soft, mild distention, no tenderness. : Ochoa draining clear urine. Extremities: No cyanosis, trace edema. Neuro: Sedated (RASS 3), no focal deficit. Skin: Warm, intact, no rash or breakdown. laboratory and microbiology Laboratory Tests 05/08/25 09:50 05/08/25 03:45 Test 05/08/25 03:45 Range/Units Serum Glucose 141 H 74-106 mg/dL Microbiology Date/Time Source Procedure Growth Status 05/03/25 18:30 Blood Blood Culture - Preliminary NO GROWTH AFTER 72 HOURS OF INCUBATION. Resulted 05/03/25 13:35 Sputum Gram Stain - Final Complete 05/03/25 13:35 Respiratory Culture - Final Citrobacter amalonaticus Complete 05/02/25 04:21 Nose MRSA Screen - Final Complete Labs and/or images reviewed: Labs reviewed by me, Image(s) reviewed by me Problem List/Assessment/Plan Problem List/Assessment/Plan Assessment 1. Hemorrhagic Shock (POA, ) Secondary to upper GI bleed; required multiple PRBC transfusions, vasopressors; now improving. 2. Acute Upper GI Bleed From large gastric ulcer; s/p IR coil embolization; 3. 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 4. Acute Hypoxic Respiratory Failure due to Aspiration Pneumonia Intubated for airway protection; on vent FiO2 30 %, improving gas exchange. Basilar opacities; On Levofloxacin 6. Acute Blood Loss Anemia Hgb 8.0 post-transfusion; monitor q8h, transfuse if < 8 or symptomatic. 7. Hypocalcemia (7.3) Ca 7.4 (ionized 8.8), Phos 2.3; , monitor Ca. 8. Hypoalbuminemia (2.2) Secondary to critical illness, malnutrition; TPN started. 9. Post-renal Urinary Retention (Resolved) Ochoa drainage 2800 mL; UO > 1 mL/kg/hr. 10.CHF due to HFpEF LV Diastolic Dysfunction (EF 60 %) Stable; monitor volume status. 11.Upper Extremity DVT (Cephalic Vein) Bilateral New occlusive thrombus; hemodynamically stable; start anticoagulation once bleeding risk acceptable but not now. 12.Sepsis (Improving) WBC 12 K ; infection focus Citrobacter maltophilia respiratory; antibiotics adjusted 13. Hypernatremia (150) Due to TPN and diuresis; started D5W @ 30 mL/hr. Plan ([facility]) 1. Gastrointestinal / Hematology * Continue Pantoprazole drip 8 mg/hr and Sucralfate 1 g QID. * Maintain triple therapy (Ampicillin + Azithromycin + Levofloxacin) for H. pylori (14-day course). * Monitor NG output and stool color q4h. * Transfuse PRBC if Hgb < 8 g/dL or active bleed. * H/H q8h. * If rectal bleeding increases GI re-eval, consider EGD And Colonoscopy once stable. * Continue IV Iron daily. 2. Infectious Disease * Continue new targeted regimen (Ampicillin + Azithromycin + Levofloxacin) * Monitor WBC, fever curve, CRP. * Repeat resp culture & blood culture if temp > 100.4 F. 3. Hemodynamics / Shock * Continue Norepinephrine & Vasopressin titration for MAP > 65. * Hydrocortisone 50 mg IV q6h (stress dose). * Trend lactate and urine output q6 h. 4. Respiratory Maintain AC-VC mode (TV 400, RR 20, FiO? 30 %, PEEP 5). * ABG daily; goal SpO? > 94 %. * Wean sedation Saturday/Saturday- begin SBT trials once H/H stable. * Chest physiotherapy, oral care q4h. * Monitor for pleural effusion progression; repeat CXR tomorrow. 5. Renal / Electrolytes * Continue TPN + D5W 30 mL/hr for free water correction. * Monitor sodium q6 h; target < 145 mEq/L. * Replete phosphorus (K-Phos IV if < 2.5). * Hold calcium replacement unless ionized < 8.0. * Maintain strict I&O; Ochoa to gravity. 6. Endocrine / Nutrition * Continue TPN (Clinimix); monitor daily electrolytes. * Sliding-scale insulin for BG 702054 mg/dL. * Monitor triglycerides and pre-albumin every 3 days. 7. Hematology / Coagulation * Platelets 97 K: trend daily. * Heparin SQ for DVT prophylaxis to resume when no active bleed 48 h. * Continue SCDs until pharmacologic prophylaxis resumed. 8. Neurology / Sedation * Continue Versed and Fentanyl drips; RASS goal 3. * Plan to wean sedation Saturday/Saturday if H/H stable. * Daily neuro checks during sedation vacation if feasible. 9. Prophylaxis * GI: Protonix drip + Sucralfate. * DVT: SCDs * Skin: Reposition q2 h; barrier ointment. * Line care: Central-line bundle compliance Triple-lumen central line * Insertion Date: 05/03/2025 * Current Status: * Site clean, dry, intact; no erythema or discharge * Single-lumen midline * Location: Right basilic vein * Insertion Date: 05/02/2025 * Current Status: * Site intact, no redness or swelling Code Status : Full Code Condition: Critical, improving Prognosis: Guarded Case discussed in detail with the attending physician Dr. Bertrand, including the clinical presentation, diagnostic work-up, and comprehensive management plan. The patients sister was present for the discussion and demonstrated understanding of his condition and the proposed plan. CRITICAL CARE TIME excluding procedures of 60 minutes Plan discussed with: Other (Sister, RN) My Orders My Orders Orders - BRYANT GALE RESIDENT Procedure Category Date Status Time Chest Xray 1 View XY 05/08/25 Resulted 04:00 Abg W/ Co-Ox RT 05/08/25 Logged 04:00 Ampicillin Inj PHA 05/07/25 In Process 18:00 Azithromycin 500mg/ PHA 05/07/25 In Process 250ml (Zithromax 50 15:30 Levofloxacin 500mg PHA 05/07/25 In Process (Levaquin 500mg/ 100m 15:30 D5w 5% (Dextrose 5%) PHA 05/07/25 In Process 15:30 Comprehensive LAB 05/09/25 Verified Metabolic Panel 04:00 Magnesium LAB 05/09/25 Verified 04:00 Phosphorus LAB 05/09/25 Verified 04:00 Amino Acid PHA 05/08/25 In Process Infusion... W/Fat 22:00 Potassium Phosphate PHA 05/08/25 In Process 12:45 Complete Blood Count LAB 05/09/25 Verified 04:00 Chest Xray 1 View XY 05/09/25 Verified 04:00 Abg W/ Co-Ox RT 05/09/25 Verified 04:00 Potassium Phosphate PHA 05/08/25 Verified 12:45 Dietary Evaluation Review Comments: Nutrition Recommendation: 1) TPN/PN if NPO>7 days 2) Advance to soft diet as medically feasible 3) Monitor NPO status, lab values, weight trend, and I/O Expected Outcomes/Goals: To meet >75% estimated needs GI symptoms to improve Fu 2-3 days CC Plasma Assessment Blood Product Administration S: [id number] Date of Service: May 08, 2025 Billing Provider: BETTYE BERTRAND MD Common Visit Codes: [id number] CARE 30-74 MIN (60 minutes) Addendum Addendum Addendum I was physically present for the allen portions of the service provided to patient by THE RESIDENT. I have reviewed the documentation, discussed the case with resident and agree with the resident's documentation except as noted. Also the patient's clinical case was discussed with the patient's nurse. This medical document was created using an electronic medical record system with computerized dictation system. Although this document has been carefully reviewed, there might still be some phonetic and typographical errors. These areas are purely typographical due to imperfections of the software programs, and do not reflect any compromise in the patient's medical care. Late signature. BRYANT GALE RESIDENT May 08, 2025 12:44 BETTYE BERTRAND MD May 10, 2025 12:37
[2025-05-08] MEDS ORDERED: POTASSIUM PHOSPHATE 44 MEQ in D5W 5% 250 ML IV ONE (12:45)
[2025-05-08] MEDS: POTASSIUM PHOSPHATE 22 MEQ in SODIUM CHL 0.9% 100 ML IV ONE (14:59)
--- NOTE | 2025-05-08 15:56 | DVHPN2 ---
Progress Note - Dictate Date Seen: May 08, 2025 Medical Necessity Reason Pt with a Central, PICC or Fol: Yes The following are medically ne: Central Line, Ochoa Catheter vital signs Vital Sign Date Time Temp Pulse Resp B/P (MAP) Pulse Ox O2 Delivery O2 Flow Rate FiO2 05/08/25 15:29 62 23 134/49 (77) 99 30 05/08/25 12:00 98.6 209.5 05/08/25 10:00 Mechanical Ventilator+ Total Intake and Output 05/07/25 05/07/25 05/08/25 15:00 23:00 07:00 Intake Total 834 ml 652 ml 925.5 ml Output Total 725 ml 750 ml Balance 834 ml -73 ml 175.5 ml medications Current Medications Medications Dose Ordered Sig/Dorene Route Start Time Stop Time Status Last Admin Dose Admin Sucralfate 1 gm QID@0600,1130,1700,2200 PO 04/28/25 17:00 05/08/25 12:47 1 GM Pantoprazole Sodium 50 ml @ 10 mls/hr Q5H IV 04/28/25 14:15 05/08/25 14:47 10 MLS/HR Norepinephrine Bitartrate 250 ml @ 3.75 mls/hr Q24H IV 05/03/25 12:15 05/06/25 08:52 3.75 MLS/HR Vasopressin 20 units/Sodium Chloride 100 ml @ 9 mls/hr Q11H7M IV 05/03/25 13:00 05/05/25 10:33 9 MLS/HR Midazolam HCl 50 ml @ 1 mls/hr Q24H IV 05/03/25 15:30 05/08/25 10:22 5 MLS/HR Fentanyl Citrate 250 ml @ 2.5 mls/hr Q24H IV 05/03/25 15:30 05/07/25 13:53 10 MLS/HR Hydrocortisone Sodium Succinate 50 mg Q6H IV 05/04/25 00:00 05/08/25 23:59 05/08/25 12:40 50 MG Dextrose 50 ml UD PRN IV 05/04/25 22:00 Diagnostic Test (Pha) 1 strip Q6HR 05/05/25 16:30 05/08/25 12:00 1 STRIP Insulin Human Lispro Q6HR SC 05/05/25 16:30 05/08/25 12:32 1 UNITS Amino Acids 0 ml @ 0 mls/hr PER PHARMACY IV 05/06/25 11:00 Fat Emulsion Intravenous 100 ml/Potassium Phosphate 11 meq/ Calcium Gluconate 2.32 meq/ Multivitamins 10 ml/Chromium/ Copper/Manganese/ Zinc 1 ml/Amino Acids/Dextrose/ Purified Water 1,318.4892 ml @ 55 mls/hr [id number] IV 05/07/25 22:00 05/08/25 21:59 05/07/25 21:47 55 MLS/HR Ampicillin Sodium 1 gm/Sodium Chloride 100 ml @ 200 mls/hr Q6HR IV 05/07/25 18:00 05/08/25 14:05 200 MLS/HR Azithromycin 250 ml @ 125 mls/hr DAILY IV 05/07/25 15:30 05/08/25 10:12 125 MLS/HR Levofloxacin/ Dextrose 100 ml @ 100 mls/hr DAILY IV 05/07/25 15:30 05/08/25 12:41 100 MLS/HR Iron Sucrose 110 ml @ 110 mls/hr DAILY@1200 IV 05/08/25 12:00 05/12/25 12:59 Fat Emulsion Intravenous 150 ml/Potassium Phosphate 22 meq/ Calcium Gluconate 2.32 meq/ Multivitamins 10 ml/Chromium/ Copper/Manganese/ Zinc 1 ml/Amino Acids/Dextrose/ Purified Water 1,470.9892 ml @ 61 mls/hr Q24H7M IV 05/08/25 22:00 05/09/25 21:59 laboratory and microbiology Laboratory Tests 05/08/25 09:50 05/08/25 03:45 Test 05/08/25 03:45 Range/Units Serum Glucose 141 H 74-106 mg/dL Assessment/Plan Cash Surrender Calculator rounds Impression Acute hypoxemic respiratory failure Massive blood product transfusion Peptic ulcer Acute GI bleed Patient seen and examined in ICU Events On mechanical ventilation S/p intubation PEEP 5, FiO2 30% Labs and imaging reviewed Chest x-ray shows right basilar airspace diseasse ABG reviewed Management Vent support Titrate to maintain sats 90% or above Sedation holiday when more stable Continue antibiotics F/u cultures Bronchodilators Diurese Monitor renal function Monitor electrolytes Supplement as needed Pressors as needed for hemodynamic support To maintain a mean arterial pressure of 65 mmHg DVT prophylaxis Critical care time 35 minutes Dietary Evaluation Review Comments: Nutrition Recommendation: 1) TPN/PN if NPO>7 days 2) Advance to soft diet as medically feasible 3) Monitor NPO status, lab values, weight trend, and I/O Expected Outcomes/Goals: To meet >75% estimated needs GI symptoms to improve Fu 2-3 days Plan discussed with: Other (Rn) CC Plasma Assessment Blood Product Administration S: [id number] JERRY SAINZ MD May 08, 2025 15:56
[2025-05-08] MEDS: IRON SUCROSE COMPLEX 110 ML IV SCH (16:08)
[2025-05-08] MEDS: D5W 5% 1,000 ML IV SCH (17:15)
[2025-05-08] MEDS: FAT EMULSION IV NR (21:35)
[2025-05-08] MEDS: CALCIUM GLUC IV NR (21:35)
[2025-05-08] MEDS: POTASSIUM PHOSPHATE IV NR (21:35)
[2025-05-08] MEDS: [UNRECOGNIZED DRUG - OTHER] IV NR (21:35)
[2025-05-08 22:57] LABS: Hematocrit 27.7 % (41.0-53.0); Hemoglobin 9.3 g/dL (13.5-17.5)
[2025-05-09] VITALS (108 sets, daily range): BP systolic 114–184; BP diastolic 42–99; PULSE 56–110; RESP 12–27; TEMP 97.7–99; O2SAT 96–100
[2025-05-09 04:52] LABS: Hematocrit 27.0 % (41.0-53.0); Hemoglobin 8.9 g/dL (13.5-17.5); Mean Corpuscular Hemoglobin 30.4 pg (28.0-32.0); Mean Corpuscular Volume 92.2 fL (80.0-100.0); Nucleated Red Blood Cells % 0.0 %
[2025-05-09 05:03] LABS: Alkaline Phosphatase 56 U/L (46-116); Anion Gap 6 (5-15); BUN/Creatinine Ratio 43.1 (10.0-20.0); Magnesium 2.2 mg/dL (1.6-2.6); Potassium 3.5 mmol/L (3.5-5.1)
[2025-05-09 05:05] LABS: Bilirubin, Total 0.6 mg/dL (0.2-1.0)
[2025-05-09 05:25] LABS: Alanine Aminotransferase 52 U/L (7-40); Albumin 2.1 g/dL (3.2-4.8); Blood Urea Nitrogen 25 mg/dL (9-23); Calcium 7.2 mg/dL (8.7-10.4); Carbon Dioxide 32 mmol/L (20-31); Chloride 109 mmol/L (98-107); Glucose 170 mg/dL (74-106); Sodium 147 mmol/L (136-145); Total Protein 3.6 g/dL (5.7-8.2)
--- NOTE | 2025-05-09 05:57 | DVH ---
CHEST RADIOGRAPH Indication: Acute hypoxic respiratory failure Technique: Single frontal view of the chest was obtained Comparison: XY CHEST XRAY 1 VIEW on DOS: 05/08/25, XY CHEST XRAY 1 VIEW on DOS: 05/07/25, XY CHEST XR AY 1 VIEW on DOS: 05/06/25 IMPRESSION: The heart is stable in supplies. Support lines and tubes appear unchanged in satisfactory position. Patchy airspace opacity right lower lung. Mild pulmonary vascular congestion. No sizable effusion o r pneumothorax.
[2025-05-09 07:11] LABS: Base Excess 3.9 mmol/L (-2.0-3.0)
--- NOTE | 2025-05-09 09:27 | MEDREC ---
[facility] Intervention Section I [facility] Intervention: Duplication of therapy (POTENTIAL DUPLICATION AZITHROMYCIN / LEVOFLOXACIN BOTH COVER FOR ATYPICAL MICROORGANISMS - PLEASE CONSIDER D/C ONE OF THEM ) THOMAS GARNETT PHARMACIST May 09, 2025 09:27
[2025-05-09 10:39] LABS: Hematocrit 29.9 % (41.0-53.0); Hemoglobin 9.8 g/dL (13.5-17.5)
--- NOTE | 2025-05-09 10:50 | DVHPN2 ---
Progress Note Date Seen: May 09, 2025 Medical Necessity Reason Pt with a Central, PICC or Fol: Yes The following are medically ne: Central Line, Ochoa Catheter Objective vital signs Vital Sign Date Time Temp Pulse Resp B/P (MAP) Pulse Ox O2 Delivery O2 Flow Rate FiO2 05/09/25 10:45 140/57 05/09/25 10:06 66 23 97 30 05/09/25 07:30 Mechanical Ventilator+ 05/09/25 06:45 98.4 209.1 Total Intake and Output 05/08/25 05/08/25 05/09/25 15:00 23:00 07:00 Intake Total 781 ml 1036 ml 1368 ml Output Total 825 ml 775 ml Balance 781 ml 211 ml 593 ml medications Current Medications Medications Dose Ordered Sig/Dorene Route Start Time Stop Time Status Last Admin Dose Admin Sucralfate 1 gm QID@0600,1130,1700,2200 PO 04/28/25 17:00 05/09/25 05:37 1 GM Pantoprazole Sodium 50 ml @ 10 mls/hr Q5H IV 04/28/25 14:15 05/09/25 09:27 10 MLS/HR Norepinephrine Bitartrate 250 ml @ 3.75 mls/hr Q24H IV 05/03/25 12:15 05/06/25 08:52 3.75 MLS/HR Vasopressin 20 units/Sodium Chloride 100 ml @ 9 mls/hr Q11H7M IV 05/03/25 13:00 05/05/25 10:33 9 MLS/HR Midazolam HCl 50 ml @ 1 mls/hr Q24H IV 05/03/25 15:30 05/09/25 10:45 3 MLS/HR Fentanyl Citrate 250 ml @ 2.5 mls/hr Q24H IV 05/03/25 15:30 05/08/25 16:55 10 MLS/HR Dextrose 50 ml UD PRN IV 05/04/25 22:00 Diagnostic Test (Pha) 1 strip Q6HR 05/05/25 16:30 05/09/25 05:37 1 STRIP Insulin Human Lispro Q6HR SC 05/05/25 16:30 05/09/25 05:40 1 UNITS Amino Acids 0 ml @ 0 mls/hr PER PHARMACY IV 05/06/25 11:00 Ampicillin Sodium 1 gm/Sodium Chloride 100 ml @ 200 mls/hr Q6HR IV 05/07/25 18:00 05/09/25 05:37 200 MLS/HR Azithromycin 250 ml @ 125 mls/hr DAILY IV 05/07/25 15:30 05/09/25 10:36 125 MLS/HR Levofloxacin/ Dextrose 100 ml @ 100 mls/hr DAILY IV 05/07/25 15:30 05/09/25 09:27 100 MLS/HR Iron Sucrose 110 ml @ 110 mls/hr DAILY@1200 IV 05/08/25 12:00 05/12/25 12:59 05/08/25 16:08 110 MLS/HR Fat Emulsion Intravenous 150 ml/Potassium Phosphate 22 meq/ Calcium Gluconate 2.32 meq/ Multivitamins 10 ml/Chromium/ Copper/Manganese/ Zinc 1 ml/Amino Acids/Dextrose/ Purified Water 1,470.9892 ml @ 61 mls/hr Q24H7M IV 05/08/25 22:00 05/09/25 21:59 05/08/25 21:35 61 MLS/HR laboratory and microbiology Laboratory Tests 05/09/25 10:24 05/09/25 04:09 Test 05/09/25 04:09 Range/Units Serum Glucose 170 H 74-106 mg/dL Microbiology Date/Time Source Procedure Growth Status 05/03/25 18:30 Blood Blood Culture - Final NO GROWTH AFTER 5 DAYS OF INCUBATION. Complete 05/03/25 13:35 Sputum Gram Stain - Final Complete 05/03/25 13:35 Respiratory Culture - Final Citrobacter amalonaticus Complete 05/02/25 04:21 Nose MRSA Screen - Final Complete Problem List/Assessment/Plan Problem List/Assessment/Plan INTUBATED HEMODYNAMICALLY STABLE NG IN PLACE NO ACTIVE BLEED H/H STABLE CONTINUE RESUSCITATION AND CLOSE OBSERVATION FAMILY AND NURSE AT BEDSIDE Plan discussed with: Other Dietary Evaluation Review Comments: Nutrition Recommendation: 1) TPN/PN if NPO>7 days 2) Advance to soft diet as medically feasible 3) Monitor NPO status, lab values, weight trend, and I/O Expected Outcomes/Goals: To meet >75% estimated needs GI symptoms to improve Fu 2-3 days CC Plasma Assessment Blood Product Administration S: [id number] TUNG JACOBS MD May 09, 2025 10:50
--- NOTE | 2025-05-09 14:28 | DVHPN2 ---
Progress Note - Dictate Date Seen: May 09, 2025 Medical Necessity Reason Pt with a Central, PICC or Fol: Yes The following are medically ne: Central Line, Ochoa Catheter vital signs Vital Sign Date Time Temp Pulse Resp B/P (MAP) Pulse Ox O2 Delivery O2 Flow Rate FiO2 05/09/25 14:08 69 20 161/60 (93) 97 30 05/09/25 07:30 Mechanical Ventilator+ 05/09/25 06:45 98.4 209.1 Total Intake and Output 05/08/25 05/08/25 05/09/25 15:00 23:00 07:00 Intake Total 781 ml 1036 ml 1368 ml Output Total 825 ml 775 ml Balance 781 ml 211 ml 593 ml medications Current Medications Medications Dose Ordered Sig/Dorene Route Start Time Stop Time Status Last Admin Dose Admin Sucralfate 1 gm QID@0600,1130,1700,2200 PO 04/28/25 17:00 05/09/25 11:52 1 GM Pantoprazole Sodium 50 ml @ 10 mls/hr Q5H IV 04/28/25 14:15 05/09/25 09:27 10 MLS/HR Norepinephrine Bitartrate 250 ml @ 3.75 mls/hr Q24H IV 05/03/25 12:15 05/06/25 08:52 3.75 MLS/HR Vasopressin 20 units/Sodium Chloride 100 ml @ 9 mls/hr Q11H7M IV 05/03/25 13:00 05/05/25 10:33 9 MLS/HR Midazolam HCl 50 ml @ 1 mls/hr Q24H IV 05/03/25 15:30 05/09/25 10:45 3 MLS/HR Fentanyl Citrate 250 ml @ 2.5 mls/hr Q24H IV 05/03/25 15:30 05/08/25 16:55 10 MLS/HR Dextrose 50 ml UD PRN IV 05/04/25 22:00 Diagnostic Test (Pha) 1 strip Q6HR 05/05/25 16:30 05/09/25 11:53 1 STRIP Insulin Human Lispro Q6HR SC 05/05/25 16:30 05/09/25 12:01 1 UNITS Amino Acids 0 ml @ 0 mls/hr PER PHARMACY IV 05/06/25 11:00 Ampicillin Sodium 1 gm/Sodium Chloride 100 ml @ 200 mls/hr Q6HR IV 05/07/25 18:00 05/09/25 12:13 200 MLS/HR Azithromycin 250 ml @ 125 mls/hr DAILY IV 05/07/25 15:30 05/09/25 10:36 125 MLS/HR Levofloxacin/ Dextrose 100 ml @ 100 mls/hr DAILY IV 05/07/25 15:30 05/09/25 09:27 100 MLS/HR Iron Sucrose 110 ml @ 110 mls/hr DAILY@1200 IV 05/08/25 12:00 05/12/25 12:59 05/09/25 12:41 110 MLS/HR Fat Emulsion Intravenous 150 ml/Potassium Phosphate 22 meq/ Calcium Gluconate 2.32 meq/ Multivitamins 10 ml/Chromium/ Copper/Manganese/ Zinc 1 ml/Amino Acids/Dextrose/ Purified Water 1,470.9892 ml @ 61 mls/hr Q24H7M IV 05/08/25 22:00 05/09/25 21:59 05/08/25 21:35 61 MLS/HR Fat Emulsion Intravenous 150 ml/Potassium Phosphate 44 meq/ Multivitamins 10 ml/Chromium/ Copper/Manganese/ Zinc 1 ml/Amino Acids/Dextrose 1,321 ml @ 55 mls/hr Q24H2M IV 05/09/25 22:00 05/10/25 21:59 laboratory and microbiology Laboratory Tests 05/09/25 10:24 05/09/25 04:09 Test 05/09/25 04:09 Range/Units Serum Glucose 170 H 74-106 mg/dL Assessment/Plan Cycle Touring Guide rounds Impression Acute hypoxemic respiratory failure Massive blood product transfusion Aspiration Peptic ulcer Acute GI bleed Patient seen and examined in ICU Events On mechanical ventilation S/p intubation PEEP 5, FiO2 30% Episode of hypertension overnight Requiring sedation No signs of bleeding Labs and imaging reviewed Chest x-ray shows patchy airspace opacities concerning for aspiration ABG reviewed Management Vent support Titrate to maintain sats 90% or above Sedation holiday when more stable Continue antibiotics F/u cultures Bronchodilators Diurese Monitor renal function Monitor electrolytes Supplement as needed Pressors as needed for hemodynamic support To maintain a mean arterial pressure of 65 mmHg DVT prophylaxis Critical care time 35 minutes Dietary Evaluation Review Comments: Nutrition Recommendation: 1) TPN/PN if NPO>7 days 2) Advance to soft diet as medically feasible 3) Monitor NPO status, lab values, weight trend, and I/O Expected Outcomes/Goals: To meet >75% estimated needs GI symptoms to improve Fu 2-3 days Plan discussed with: Other (Rn) CC Plasma Assessment Blood Product Administration S: [id number] JERRY SAINZ MD May 09, 2025 14:28
--- NOTE | 2025-05-09 15:31 | DVHPNRES ---
Progress Note Date Seen: May 09, 2025 Resident Creating Document: ANDER GLEASON RESIDENT Medical Necessity Reason Pt with a Central, PICC or Fol: Yes The following are medically ne: Central Line, Ochoa Catheter Subjective Review of Systems pt seen and examined at bedside currently sedated and intubated Clean residuals from NG tube No bowel movement today Will plan CPAP trial in the AM Objective vital signs Vital Sign Date Time Temp Pulse Resp B/P (MAP) Pulse Ox O2 Delivery O2 Flow Rate FiO2 05/09/25 14:08 69 20 161/60 (93) 97 30 05/09/25 07:30 Mechanical Ventilator+ 05/09/25 06:45 98.4 209.1 Total Intake and Output 05/08/25 05/08/25 05/09/25 15:00 23:00 07:00 Intake Total 781 ml 1036 ml 1368 ml Output Total 825 ml 775 ml Balance 781 ml 211 ml 593 ml medications Current Medications Medications Dose Ordered Sig/Dorene Route Start Time Stop Time Status Last Admin Dose Admin Sucralfate 1 gm QID@0600,1130,1700,2200 PO 04/28/25 17:00 05/09/25 11:52 1 GM Pantoprazole Sodium 50 ml @ 10 mls/hr Q5H IV 04/28/25 14:15 05/09/25 09:27 10 MLS/HR Norepinephrine Bitartrate 250 ml @ 3.75 mls/hr Q24H IV 05/03/25 12:15 05/06/25 08:52 3.75 MLS/HR Vasopressin 20 units/Sodium Chloride 100 ml @ 9 mls/hr Q11H7M IV 05/03/25 13:00 05/05/25 10:33 9 MLS/HR Midazolam HCl 50 ml @ 1 mls/hr Q24H IV 05/03/25 15:30 05/09/25 10:45 3 MLS/HR Fentanyl Citrate 250 ml @ 2.5 mls/hr Q24H IV 05/03/25 15:30 05/08/25 16:55 10 MLS/HR Dextrose 50 ml UD PRN IV 05/04/25 22:00 Diagnostic Test (Pha) 1 strip Q6HR 05/05/25 16:30 05/09/25 11:53 1 STRIP Insulin Human Lispro Q6HR SC 05/05/25 16:30 05/09/25 12:01 1 UNITS Amino Acids 0 ml @ 0 mls/hr PER PHARMACY IV 05/06/25 11:00 Ampicillin Sodium 1 gm/Sodium Chloride 100 ml @ 200 mls/hr Q6HR IV 05/07/25 18:00 05/09/25 12:13 200 MLS/HR Azithromycin 250 ml @ 125 mls/hr DAILY IV 05/07/25 15:30 05/09/25 10:36 125 MLS/HR Levofloxacin/ Dextrose 100 ml @ 100 mls/hr DAILY IV 05/07/25 15:30 05/09/25 09:27 100 MLS/HR Iron Sucrose 110 ml @ 110 mls/hr DAILY@1200 IV 05/08/25 12:00 05/12/25 12:59 05/09/25 12:41 110 MLS/HR Fat Emulsion Intravenous 150 ml/Potassium Phosphate 22 meq/ Calcium Gluconate 2.32 meq/ Multivitamins 10 ml/Chromium/ Copper/Manganese/ Zinc 1 ml/Amino Acids/Dextrose/ Purified Water 1,470.9892 ml @ 61 mls/hr Q24H7M IV 05/08/25 22:00 05/09/25 21:59 05/08/25 21:35 61 MLS/HR Fat Emulsion Intravenous 150 ml/Potassium Phosphate 44 meq/ Multivitamins 10 ml/Chromium/ Copper/Manganese/ Zinc 1 ml/Amino Acids/Dextrose 1,321 ml @ 55 mls/hr Q24H2M IV 05/09/25 22:00 05/10/25 21:59 Examination Examination General Appearance: Sedated, on mechanical ventilator HEENT: EOMI Respiratory: Clear to auscultation, on mechanical ventilator Cardiovascular: Regular rate, Normal S1, Normal S2 Abdominal: Normal bowel sounds Extremities: No cyanosis, No edema, Normal pulses, No tenderness/swelling Skin: No rashes, No breakdown Neuro: Sedated and intubated laboratory and microbiology Laboratory Tests 05/09/25 10:24 05/09/25 04:09 Test 05/09/25 04:09 Range/Units Serum Glucose 170 H 74-106 mg/dL Microbiology Date/Time Source Procedure Growth Status 05/03/25 18:30 Blood Blood Culture - Final NO GROWTH AFTER 5 DAYS OF INCUBATION. Complete 05/03/25 13:35 Sputum Gram Stain - Final Complete 05/03/25 13:35 Respiratory Culture - Final Citrobacter amalonaticus Complete 05/02/25 04:21 Nose MRSA Screen - Final Complete Labs and/or images reviewed: Labs reviewed by me, Image(s) reviewed by me Problem List/Assessment/Plan Problem List/Assessment/Plan Assessment/plan Neurology # Sedation Currently on midazolam and fentanyl We will taper for CPAP trial tomorrow Gastroenterology # GI bleed, likely upper GI bleed from large gastric ulcer status post upper GI endoscopy and IR coil embolization Continue pantoprazole drip GI on board Monitor NG output and stool color Transfuse if hemoglobin less than eight or active bleeding IV iron daily # TPN -continue as per GI # H pylori infection Maintain triple therapy with ampicillin, azithromycin and levofloxacin Monitor NG output and stool color Respiratory # acute hypoxic respiratory failure likely due to aspiration pneumonia On mechanical ventilation day seven, with respiratory rate 20, tidal volume 450, peep of five and 30% FiO2 On antibiotic levofloxacin Cardiology # shock likely hypovolemic shock due to GI bleed , possible component of septic shock -currently off pressors # HFpEF, currently not in exacerbation Monitor volume status Echocardiogram 60% ejection fraction # upper extremity DVTs cephalic vein bilateral We will start anticoagulation once bleeding risk is acceptable Infectious disease # sepsis with septic shock due to aspiration pneumonia IV fluids given IV antibiotics Blood culture Hematology # severe anemia requiring blood transfusion -Massive Transfusion protocol was started Total transfusion PRBC 14 units FFP 2 units Platelet 2 units # thrombocytopenia Monitor Nephrology # BRANDON, resolved Continue monitoring # hypernatremia -continue D5 at 50 cc/hour We will discontinue after hypernatremia results DVT prophylaxis SCD Hold anticoagulation until GI bleed resolved Peptic ulcer disease prophylaxis Currently on Protonix drip Lines Ochoa's catheter inserted on May 03, 2025 Right IJ catheter inserted on May 03, 2025 Nutrition Currently on TPN Bowel regimen Currently on hold because of GI bleed Drips D5W TPN Midazolam Pantoprazole Fentanyl 05/09/2025 : No signs of active bleeding, blood pressure and hemoglobin stable, we will plan for CPAP trial tomorrow, we will start sedation vacation today. Family, sister at bedside explained about the condition of the patient Sister at bedside explained about the condition of the patient Case discussion with Dr. Bertrand Critical care time excluding procedures of 55 minutes Plan discussed with: Other (Sisters; RN) Dietary Evaluation Review Comments: Nutrition Recommendation: 1) TPN/PN if NPO>7 days 2) Advance to soft diet as medically feasible 3) Monitor NPO status, lab values, weight trend, and I/O Expected Outcomes/Goals: To meet >75% estimated needs GI symptoms to improve Fu 2-3 days Critical Care Time (mins): 55 CC Plasma Assessment Blood Product Administration S: [id number] Addendum Addendum Addendum I was physically present for the allen portions of the service provided to patient by THE RESIDENT. I have reviewed the documentation, discussed the case with resident and agree with the resident's documentation except as noted. Also the patient's clinical case was discussed with the patient's nurse. This medical document was created using an electronic medical record system with computerized dictation system. Although this document has been carefully reviewed, there might still be some phonetic and typographical errors. These areas are purely typographical due to imperfections of the software programs, and do not reflect any compromise in the patient's medical care. Late signature. Date of Service: May 09, 2025 Billing Provider: BETTYE BERTRAND MD Common Visit Codes: [id number] CARE 30-74 MIN (55 minutes) ANDER GLEASON RESIDENT May 09, 2025 15:31 BETTYE BERTRAND MD May 10, 2025 12:41
[2025-05-09] MEDS: DEXMEDETOMIDINE HCL IN D5W 100 ML IV ONE (19:14)
[2025-05-09] MEDS ORDERED: DEXMEDETOMIDINE HCL IN D5W 100 ML IV SCH (19:15)
[2025-05-09] MEDS: hydrALAZINE HCL 20 MG/ML VL IV PRN (20:16)
[2025-05-09] MEDS: TPN PER PHARMACY IV NR (21:16)
[2025-05-09] MEDS: DEXMEDETOMIDINE HCL IN D5W 100 ML IV SCH (22:24)
[2025-05-09 22:53] LABS: Hematocrit 35.6 % (41.0-53.0); Hemoglobin 11.8 g/dL (13.5-17.5)
[2025-05-10] VITALS (108 sets, daily range): BP systolic 117–192; BP diastolic 48–78; PULSE 74–124; RESP 13–27; TEMP 98.6–99.5; O2SAT 94–100
[2025-05-10 04:24] LABS: Hematocrit 35.3 % (41.0-53.0); Hemoglobin 11.7 g/dL (13.5-17.5); Mean Corpuscular Hemoglobin 30.4 pg (28.0-32.0); Mean Corpuscular Volume 92.0 fL (80.0-100.0)
--- NOTE | 2025-05-10 04:40 | DVH ---
CHEST RADIOGRAPH Indication: sob Technique: Single frontal view of the chest was obtained COMPARISON: XY CHEST XRAY 1 VIEW on DOS: 05/09/25, XY CHEST XRAY 1 VIEW on DOS: 05/08/25, XY CHEST XR AY 1 VIEW on DOS: 05/07/25, XY CHEST XRAY 1 VIEW on DOS: 05/06/25, XY CHEST PORTABLE on DOS: 05/05/25 FINDINGS: Lines and Tubes: Slight interval advancement of the endotracheal tube such that the tip now projects approximately 3.6 cm above the level of the regis. Remaining lines and tubes unchanged. Lungs: Stable appearing small right pleural effusion and basilar airspace disease. No pneumothorax. Cardiomediastinal contours: Unremarkable Bones: Unremarkable IMPRESSION: 1. Slight interval advancement of the endotracheal tube such that the tip now projects approximately 3.6 cm above the level of the regis. Remaining lines and tubes unchanged. 2. Stable small right pleural effusion and basilar airspace disease.
[2025-05-10 05:46] LABS: Total Cells Counted 100.0 (100)
[2025-05-10 08:41] LABS: Base Excess 4.8 mmol/L (-2.0-3.0)
--- NOTE | 2025-05-10 08:59 | DVHPNRES ---
Progress Note Date Seen: May 10, 2025 Resident Creating Document: ARBEN MCFARLANE RESIDENT Medical Necessity Reason Pt with a Central, PICC or Fol: Yes The following are medically ne: Central Line, Ochoa Catheter Subjective Review of Systems Patient is 69-year-old male who was admitted on 04/28/2025 for evaluation of GI bleed, CVA anemia, questionable pneumonia and questionable liver disease. Given extensive GI bleed, patient required 14 units of RBCs, 2 units of FFP and 2 units of platelets, underwent upper GI endoscopy on 04/28/2025 showed large deep 5 cm gastric ulcer in pre-pyloric area and antrum gastritis. For pneumonia patient was initially treated with Rocephin and azithromycin. Continue on IV Protonix, later patient become lethargic, recurrent hematemesis, started requiring oxygen, intubated for worsening respiratory failure and protection of airway given recurrent hematemesis. Intubated on 05/03/2025. Surgery and radiology was consulted, radiologist embolized gastroduodenal artery aneurysm, no surgical intervention at done, hematemesis stopped. Later pressor requirement was decreased, active GI bleed stopped. Patient continued to help severe hypocalcemia requiring multiple IV calcium gluconate supplement.Biopsy of duodenal and gastric ulcer negative for malignancy. However it came positive for H pylori. Patient is started on ampicillin 1 g q.6, azithromycin 500 mg IV daily and levofloxacin 750 mg IV daily.IV antibiotic vancomycin meropenem was discontinued. And continued on this triple therapy. Plan was for CPAP trial during last weekend however patient becomes tachypneic, agitated therefore plan is to get CPAP trial today. 05/10/2025: Patient seen and examined at bedside. Patient is hemodynamically stable without vasopressors. Minimal ventilator settings with tidal respiratory rate 20, tidal volume 400, FiO2 30%, peep of five. Continued postnasal drip, Precedex and TPN. Sedation has been stopped. Plan for CPAP trial if patient patient follows commands. Hemoglobin stable 10.7. ABG pH 7.431, CO2 44.1, HC03 28.7. Chest x-ray mild obesity on right lower lobe lung. Small right pleural effusion Objective vital signs Vital Sign Date Time Temp Pulse Resp B/P (MAP) Pulse Ox O2 Delivery O2 Flow Rate FiO2 05/10/25 06:46 77 18 146/59 (88) 99 05/10/25 06:34 30 05/10/25 06:30 99.1 210.4 05/10/25 05:55 Mechanical Ventilator+ Total Intake and Output 05/09/25 05/09/25 05/10/25 15:00 23:00 07:00 Intake Total 869.0 ml 760.795 ml 866.861 ml Output Total 0 ml 1200 ml Balance 869.0 ml 760.795 ml -333.139 ml medications Current Medications Medications Dose Ordered Sig/Dorene Route Start Time Stop Time Status Last Admin Dose Admin Sucralfate 1 gm QID@0600,1130,1700,2200 PO 04/28/25 17:00 05/10/25 05:01 1 GM Pantoprazole Sodium 50 ml @ 10 mls/hr Q5H IV 04/28/25 14:15 05/10/25 06:08 10 MLS/HR Midazolam HCl 50 ml @ 1 mls/hr Q24H IV 05/03/25 15:30 05/09/25 21:28 2 MLS/HR Fentanyl Citrate 250 ml @ 2.5 mls/hr Q24H IV 05/03/25 15:30 05/09/25 16:53 10 MLS/HR Dextrose 50 ml UD PRN IV 05/04/25 22:00 Diagnostic Test (Pha) 1 strip Q6HR 05/05/25 16:30 05/10/25 05:11 1 STRIP Insulin Human Lispro Q6HR SC 05/05/25 16:30 05/09/25 12:01 1 UNITS Amino Acids 0 ml @ 0 mls/hr PER PHARMACY IV 05/06/25 11:00 Ampicillin Sodium 1 gm/Sodium Chloride 100 ml @ 200 mls/hr Q6HR IV 05/07/25 18:00 05/10/25 05:01 200 MLS/HR Azithromycin 250 ml @ 125 mls/hr DAILY IV 05/07/25 15:30 05/09/25 10:36 125 MLS/HR Levofloxacin/ Dextrose 100 ml @ 100 mls/hr DAILY IV 05/07/25 15:30 05/09/25 09:27 100 MLS/HR Iron Sucrose 110 ml @ 110 mls/hr DAILY@1200 IV 05/08/25 12:00 05/12/25 12:59 05/09/25 12:41 110 MLS/HR Fat Emulsion Intravenous 150 ml/Potassium Phosphate 44 meq/ Multivitamins 10 ml/Chromium/ Copper/Manganese/ Zinc 1 ml/Amino Acids/Dextrose 1,321 ml @ 55 mls/hr Q24H2M IV 05/09/25 22:00 05/10/25 21:59 05/09/25 21:16 55 MLS/HR Hydralazine HCl 10 mg Q6HP PRN IV 05/09/25 18:30 05/09/25 20:16 10 MG Examination Examination General Appearance: Sedated, on mechanical ventilator HEENT: EOMI Respiratory: Clear to auscultation, on mechanical ventilator Cardiovascular: Regular rate, Normal S1, Normal S2 Abdominal: Normal bowel sounds Extremities: No cyanosis, No edema, Normal pulses, No tenderness/swelling Skin: No rashes, No breakdown Neuro: Sedated and intubated laboratory and microbiology Laboratory Tests 05/10/25 03:50 Test 05/10/25 03:50 Range/Units Serum Glucose Pending Microbiology Date/Time Source Procedure Growth Status 05/03/25 18:30 Blood Blood Culture - Final NO GROWTH AFTER 5 DAYS OF INCUBATION. Complete 05/03/25 13:35 Sputum Gram Stain - Final Complete 05/03/25 13:35 Respiratory Culture - Final Citrobacter amalonaticus Complete 05/02/25 04:21 Nose MRSA Screen - Final Complete Problem List/Assessment/Plan Problem List/Assessment/Plan Neurology Sedated -plan for CPAP trial today -off sedation -on Precedex 0.3 mg/hour Gastroenterology Upper GI bleed Large gastric ulcer Status post upper GI endoscopy and IR coil embolization -continue Protonix drip currently 8 milligram/hour -GI on board -TPN -NPO -received 14 units of PRBCs, 2 units of FFP and 2 units of platelet till now. -no active GI bleed at this point -H&H monitoring, target hemoglobin 7. -Upper GI endoscopy on 04/28/2025 1. Large deep 5 cm gastric ulcer was seen in the pre-pyloric area extending into the angularis with over line black eschars and a few red spots but no visible vessel and no active bleeding 2. Mild pre-pyloric antral gastritis with some gastric erosions and tiny ulcers otherwise normal examination up to the 2nd and 3rd part of the duodenal 3. Patient had moderate amount of coffee-ground and old blood in the stomach related to oozing from the gastric ulcer -duodenal and gastric biopsy negative for malignancy. Positive for H pylori infection. H pylori infection(started on 05/07/2025) -IV ampicillin 1 g q.6 hours -IV Protonix drip -IV levofloxacin -IV azithromycin 500 mg IV daily Mild Transaminitis -continue to monitor -AST 44 on 04/29/2025 Respiratory/cardiology Acute hypoxic respiratory failure likely due to aspiration pneumonia Mild right-sided pleural effusion -on vent: Respiratory rate 20, tidal volume 400, FiO2 of 30%, peep of five -respiratory culture came positive for Citrobacter -blood culture negative -CPAP trial today -failed CPAP trial yesterday given tachypnea, agitated and Hypertension -on antibiotics levofloxacin Hemorrhagic shock versus septic shock: Improved -off pressor, no active GI bleed. -continue to monitor. -blood culture negative -respiratory culture came positive for Citrobacter HFpEF, currently not in exacerbation Monitor volume status Echocardiogram 60% ejection fraction Hypertension -PRN hydralazine Hematology Severe hemorrhagic anemia -hemoglobin 11.7, hematocrit 35.3, MCV 92. -IV iron sucrose daily. # upper extremity DVTs cephalic vein bilateral We will start anticoagulation once bleeding risk is acceptable # thrombocytopenia Monitor Nephrology # hypernatremia -147 (05/09/2025) -Was given D5%. Hypocalcemia - CA 7.2 (05/09/2025) DVT prophylaxis SCD Hold anticoagulation until GI bleed resolved Peptic ulcer disease prophylaxis Currently on Protonix drip Lines Ochoa's catheter inserted on May 03, 2025 Right IJ catheter inserted on May 03, 2025 Nutrition Currently on TPN Bowel regimen Currently on hold because of GI bleed Critical care time spent greater than 74 minutes, outside of procedure. Plan discussed with Plan discussed with: Other (RN) Dietary Evaluation Review Comments: Nutrition Recommendation: 1) TPN/PN if NPO>7 days 2) Advance to soft diet as medically feasible 3) Monitor NPO status, lab values, weight trend, and I/O Expected Outcomes/Goals: To meet >75% estimated needs GI symptoms to improve Fu 2-3 days CC Plasma Assessment Blood Product Administration S: [id number] ARBEN MCFARLANE RESIDENT May 10, 2025 08:59
[2025-05-10 10:23] LABS: Alkaline Phosphatase 76 U/L (46-116); Anion Gap 7 (5-15); BUN/Creatinine Ratio 27.3 (10.0-20.0); Blood Urea Nitrogen 15 mg/dL (9-23); Carbon Dioxide 31 mmol/L (20-31); Magnesium 2.0 mg/dL (1.6-2.6); Sodium 145 mmol/L (136-145)
[2025-05-10 10:25] LABS: Alanine Aminotransferase 88 U/L (7-40); Albumin 2.3 g/dL (3.2-4.8); Bilirubin, Total 1.3 mg/dL (0.2-1.0); Calcium 7.1 mg/dL (8.7-10.4); Chloride 107 mmol/L (98-107); Glucose 112 mg/dL (74-106); Potassium 2.9 mmol/L (3.5-5.1); Total Protein 4.2 g/dL (5.7-8.2)
--- NOTE | 2025-05-10 10:35 | DVHPN2 ---
Assessment/Plan Assessment/Plan progress note 69 M admitted for melena, s/p scope, recurrent UGIB. HB AM 7.1. sudden change in status, patient diaphoretic, tachycardic and hypotensive. placed on trendelenburg, IV boluses. TLC placed in. large volume hematemesis and NGT showed blood. so far 800 cc in suction canister. d/w GI, IR and surg. plan for i r emblization, MTP to stabilize, possible need for emergent surgery. started on pressors. intubated for airway protection. was placed on pressors, stress dose steroids, now off pressors. H pylori positive seen today, off pressors, awake, follwoing commands. extubation today. physical exam intubated sedated on mech vent mech breath sounds clear ett and ngt s1 s2 tachy abdomen tender, vvoluntary guarding no le edema labs ekg imaging reviewed POCUS done, FAST, no free fluid, subxyphoid heart looks hyperdynamic, IVC flat assessment and plan severe anemia req massive PRBC gastric ulcer, active bleeding s/p MARILIN embolization PNA, Citrobacter amalonaticus acute hypoxic RF rec mech vent acute metabolic encep hemorrhagic shock hypocalcemia tx related h pylori b/l cephalic thrombosis extubate c/w ampicilin, azithro, protonix, levoflox 2 large bore IV transfuse keep hb >8 IR for embolization IV bolus platelet, ffp protonix drip surg, GI on board calcium c/w tpn, thigh picc diet NPO TPN dvt ppx hold SCD condition critical prognosis poor full code crit care time 45 minutes Plan discussed with: Patient, Other My Orders Orders - DILCIA DANIEL MD Procedure Category Date Status Time * Picc Line Consult CONS 05/10/25 Transmitted 10:16 Sequential ELVIA 05/10/25 In Process Compression Device 10:21 Prothrombin Time W/ LAB 05/10/25 Logged INR 10:21 Complete Blood Count LAB 05/11/25 Verified 04:00 Magnesium LAB 05/11/25 Verified 04:00 Phosphorus LAB 05/11/25 Verified 04:00 Comprehensive LAB 05/11/25 Verified Metabolic Panel 04:00 Date of Service: May 10, 2025 Billing Provider: DILCIA DANIEL MD Common Visit Codes: [id number] CARE 30-74 MIN DILCIA DANIEL MD May 10, 2025 10:35
[2025-05-10 11:20] LABS: Base Excess 5.1 mmol/L (-2.0-3.0)
[2025-05-10 11:40] LABS: Hematocrit 35.7 % (41.0-53.0); Hemoglobin 11.3 g/dL (13.5-17.5)
[2025-05-10 12:16] LABS: INR 1.07 (0.9-1.15); Partial Thromboplastin Time 32.9 SEC (24.5-34.5); Prothrombin Time 11.3 sec (9.3-11.8)
[2025-05-10] MEDS: POTASSIUM CHL 20MEQ/100ML 100 ML IV ONE (13:35)
--- NOTE | 2025-05-10 14:46 | DVHPN2 ---
Progress Note Date Seen: May 10, 2025 Medical Necessity Reason Pt with a Central, PICC or Fol: Yes The following are medically ne: Central Line, Ochoa Catheter Objective vital signs Vital Sign Date Time Temp Pulse Resp B/P (MAP) Pulse Ox O2 Delivery O2 Flow Rate FiO2 05/10/25 13:30 88 17 172/56 (94) 100 05/10/25 12:00 Mechanical Ventilator+ 30 30 05/10/25 12:00 98.6 98.6 05/10/25 10:20 8.0 Total Intake and Output 05/09/25 05/09/25 05/10/25 15:00 23:00 07:00 Intake Total 869.0 ml 760.795 ml 941.951 ml Output Total 0 ml 1200 ml Balance 869.0 ml 760.795 ml -258.049 ml medications Current Medications Medications Dose Ordered Sig/Dorene Route Start Time Stop Time Status Last Admin Dose Admin Sucralfate 1 gm QID@0600,1130,1700,2200 PO 04/28/25 17:00 05/10/25 12:28 1 GM Pantoprazole Sodium 50 ml @ 10 mls/hr Q5H IV 04/28/25 14:15 05/10/25 06:08 10 MLS/HR Dextrose 50 ml UD PRN IV 05/04/25 22:00 Diagnostic Test (Pha) 1 strip Q6HR 05/05/25 16:30 05/10/25 12:29 1 STRIP Insulin Human Lispro Q6HR SC 05/05/25 16:30 05/09/25 12:01 1 UNITS Amino Acids 0 ml @ 0 mls/hr PER PHARMACY IV 05/06/25 11:00 Ampicillin Sodium 1 gm/Sodium Chloride 100 ml @ 200 mls/hr Q6HR IV 05/07/25 18:00 05/10/25 12:28 200 MLS/HR Azithromycin 250 ml @ 125 mls/hr DAILY IV 05/07/25 15:30 05/10/25 10:57 125 MLS/HR Levofloxacin/ Dextrose 100 ml @ 100 mls/hr DAILY IV 05/07/25 15:30 05/10/25 09:18 100 MLS/HR Iron Sucrose 110 ml @ 110 mls/hr DAILY@1200 IV 05/08/25 12:00 05/12/25 12:59 05/10/25 12:29 110 MLS/HR Fat Emulsion Intravenous 150 ml/Potassium Phosphate 44 meq/ Multivitamins 10 ml/Chromium/ Copper/Manganese/ Zinc 1 ml/Amino Acids/Dextrose 1,321 ml @ 55 mls/hr Q24H2M IV 05/09/25 22:00 05/10/25 21:59 05/09/25 21:16 55 MLS/HR Fat Emulsion Intravenous 150 ml/Potassium Phosphate 22 meq/ Calcium Gluconate 2.3 meq/Magnesium Sulfate 4 meq/ Multivitamins 10 ml/Chromium/ Copper/Manganese/ Zinc 1 ml/Amino Acids/Dextrose 1,371.9462 ml @ 57 mls/hr Q24H5M IV 05/10/25 22:00 05/11/25 21:59 laboratory and microbiology Laboratory Tests 05/10/25 09:48 05/10/25 03:50 Test 05/10/25 09:48 Range/Units Serum Glucose 112 H 74-106 mg/dL Microbiology Date/Time Source Procedure Growth Status 05/03/25 18:30 Blood Blood Culture - Final NO GROWTH AFTER 5 DAYS OF INCUBATION. Complete 05/03/25 13:35 Sputum Gram Stain - Final Complete 05/03/25 13:35 Respiratory Culture - Final Citrobacter amalonaticus Complete 05/02/25 04:21 Nose MRSA Screen - Final Complete Problem List/Assessment/Plan Problem List/Assessment/Plan EXTUBATED HEMODYNAMICALLY STABLE NO ACTIVE BLEED H/H STABLE CONTINUE CLOSE OBSERVATION FAMILY AND NURSE AT BEDSIDE Plan discussed with: Other Dietary Evaluation Review Comments: Nutrition Recommendation: 1) TPN/PN if NPO>7 days 2) Advance to soft diet as medically feasible 3) Monitor NPO status, lab values, weight trend, and I/O Expected Outcomes/Goals: To meet >75% estimated needs GI symptoms to improve Fu 2-3 days CC Plasma Assessment Blood Product Administration S: [id number] TUNG JACOBS MD May 10, 2025 14:46
--- NOTE | 2025-05-10 15:22 | DVHPN2 ---
Progress Note Date Seen: May 10, 2025 Resident Creating Document: RAYMUNDO BACK RESIDENT Medical Necessity Reason Pt with a Central, PICC or Fol: Yes The following are medically ne: Central Line, Ochoa Catheter Subjective Review of Systems Patient seen and examined with the bedside Extubated today, on oxygen via simple mask showing no respiratory distress H&H stable and increasing now at 11.3 Currently on TPN Objective vital signs Vital Sign Date Time Temp Pulse Resp B/P (MAP) Pulse Ox O2 Delivery O2 Flow Rate FiO2 05/10/25 14:00 86 05/10/25 14:00 17 97 Nasal Cannula* 2 28 05/10/25 13:30 172/56 (94) 05/10/25 12:00 98.6 98.6 Total Intake and Output 05/09/25 05/09/25 05/10/25 15:00 23:00 07:00 Intake Total 869.0 ml 760.795 ml 941.951 ml Output Total 0 ml 1200 ml Balance 869.0 ml 760.795 ml -258.049 ml medications Current Medications Medications Dose Ordered Sig/Dorene Route Start Time Stop Time Status Last Admin Dose Admin Sucralfate 1 gm QID@0600,1130,1700,2200 PO 04/28/25 17:00 05/10/25 12:28 1 GM Pantoprazole Sodium 50 ml @ 10 mls/hr Q5H IV 04/28/25 14:15 05/10/25 14:57 10 MLS/HR Dextrose 50 ml UD PRN IV 05/04/25 22:00 Diagnostic Test (Pha) 1 strip Q6HR 05/05/25 16:30 05/10/25 12:29 1 STRIP Insulin Human Lispro Q6HR SC 05/05/25 16:30 05/09/25 12:01 1 UNITS Amino Acids 0 ml @ 0 mls/hr PER PHARMACY IV 05/06/25 11:00 Ampicillin Sodium 1 gm/Sodium Chloride 100 ml @ 200 mls/hr Q6HR IV 05/07/25 18:00 05/10/25 12:28 200 MLS/HR Azithromycin 250 ml @ 125 mls/hr DAILY IV 05/07/25 15:30 05/10/25 10:57 125 MLS/HR Levofloxacin/ Dextrose 100 ml @ 100 mls/hr DAILY IV 05/07/25 15:30 05/10/25 09:18 100 MLS/HR Iron Sucrose 110 ml @ 110 mls/hr DAILY@1200 IV 05/08/25 12:00 05/12/25 12:59 05/10/25 12:29 110 MLS/HR Fat Emulsion Intravenous 150 ml/Potassium Phosphate 44 meq/ Multivitamins 10 ml/Chromium/ Copper/Manganese/ Zinc 1 ml/Amino Acids/Dextrose 1,321 ml @ 55 mls/hr Q24H2M IV 05/09/25 22:00 05/10/25 21:59 05/09/25 21:16 55 MLS/HR Fat Emulsion Intravenous 150 ml/Potassium Phosphate 22 meq/ Calcium Gluconate 2.3 meq/Magnesium Sulfate 4 meq/ Multivitamins 10 ml/Chromium/ Copper/Manganese/ Zinc 1 ml/Amino Acids/Dextrose 1,371.9462 ml @ 57 mls/hr Q24H5M IV 05/10/25 22:00 05/11/25 21:59 Examination Gen - mild conjunctiva to pallor, no scleral icterus Skin - Patients skin is warm and dry. HEENT - normocephalic, atraumatic, dry mucous membranes. Neck - supple, no lymphadenopathy Pulmonary - B/L equal air entry with a decreased breath sound in the right lower cardiovascular - regular S1,S2 heard GI - soft abdomen. Bowel sounds normoactive. Neurological - patient is extubated, following commands does not report of any abdominal pain laboratory and microbiology Laboratory Tests 05/10/25 09:48 05/10/25 03:50 Test 05/10/25 09:48 Range/Units Serum Glucose 112 H 74-106 mg/dL Microbiology Date/Time Source Procedure Growth Status 05/03/25 18:30 Blood Blood Culture - Final NO GROWTH AFTER 5 DAYS OF INCUBATION. Complete 05/03/25 13:35 Sputum Gram Stain - Final Complete 05/03/25 13:35 Respiratory Culture - Final Citrobacter amalonaticus Complete 05/02/25 04:21 Nose MRSA Screen - Final Complete Problem List/Assessment/Plan Problem List/Assessment/Plan Assessment Severe anemia requiring massive transfusion Cardiopulmonary arrest s/p ROSC Bleeding gastric ulcer status post MARILIN embolization H pylori gastritis Intestinal metaplasia seen on biopsy Plan H&H stable, continue monitoring Continue IV Protonix drip and Carafate q.i.d. NPO, continue on TPN Iron IV IV antibiotics for H pylori Plan discussed with Dr. Ott Plan discussed with: Patient, Other (CRISTIN Polanco) Dietary Evaluation Review Comments: Nutrition Recommendation: 1) TPN/PN if NPO>7 days 2) Advance to soft diet as medically feasible 3) Monitor NPO status, lab values, weight trend, and I/O Expected Outcomes/Goals: To meet >75% estimated needs GI symptoms to improve Fu 2-3 days CC Plasma Assessment Blood Product Administration S: [id number] RAYMUNDO BACK RESIDENT May 10, 2025 15:22
[2025-05-10] MEDS: POTASSIUM PHOSPHATE 44 MEQ in D5W 5% 250 ML IV ONE (16:44)
[2025-05-10] MEDS: ENALAPRILAT 1.25 MG/ML-1ML VIAL IV SCH (17:18)
[2025-05-10] MEDS: hydrALAZINE HCL 20 MG/ML VL IV ONE (20:04)
[2025-05-10] MEDS ORDERED: HYDROmorphone HCL 2 MG/ML VL/or syr IM ONE (20:45)
[2025-05-10] MEDS: HYDROmorphone HCL 2 MG/ML VL/or syr IV ONE (20:56)
[2025-05-10] MEDS: TPN PER PHARMACY IV NR (21:04)
[2025-05-10 22:15] LABS: Hematocrit 33.8 % (41.0-53.0); Hemoglobin 11.4 g/dL (13.5-17.5)
[2025-05-11] VITALS (99 sets, daily range): BP systolic 130–187; BP diastolic 56–111; PULSE 76–140; RESP 11–27; TEMP 75.4–100.2; O2SAT 91–100
[2025-05-11] MEDS: ONDANSETRON HCL 4 MG/2 ML VIAL IV PRN (03:36)
[2025-05-11 04:00] LABS: Hematocrit 31.7 % (41.0-53.0); Hemoglobin 10.8 g/dL (13.5-17.5); Mean Corpuscular Hemoglobin 30.9 pg (28.0-32.0); Mean Corpuscular Volume 90.5 fL (80.0-100.0); Nucleated Red Blood Cells % 0.0 %
[2025-05-11 04:21] LABS: Alkaline Phosphatase 84 U/L (46-116); Anion Gap 8 (5-15); BUN/Creatinine Ratio 34.0 (10.0-20.0); Blood Urea Nitrogen 17 mg/dL (9-23); Chloride 104 mmol/L (98-107); Magnesium 1.8 mg/dL (1.6-2.6); Sodium 144 mmol/L (136-145)
[2025-05-11 04:22] LABS: Bilirubin, Total 0.7 mg/dL (0.2-1.0)
[2025-05-11 04:30] LABS: Alanine Aminotransferase 73 U/L (7-40); Albumin 2.3 g/dL (3.2-4.8); Calcium 7.1 mg/dL (8.7-10.4); Carbon Dioxide 32 mmol/L (20-31); Glucose 133 mg/dL (74-106); Potassium 2.7 mmol/L (3.5-5.1); Total Protein 4.1 g/dL (5.7-8.2)
[2025-05-11] MEDS: POTASSIUM CHL 20MEQ/100ML 100 ML IV SCH (04:57)
[2025-05-11] MEDS: MAGNESIUM SULFATE 1GM/100ML 100 ML IV ONE (05:26)
[2025-05-11] MEDS: NICOTINE 7MG/24HR TOPICAL PATCH TD SCH (12:08)
[2025-05-11] MEDS: ENALAPRILAT 1.25 MG/ML-1ML VIAL IV ONE (12:09)
[2025-05-11] MEDS: ENALAPRILAT 1.25 MG/ML-1ML VIAL IV SCH ×2 (12:21→17:15)
[2025-05-11] MEDS: POTASSIUM PHOSPHATE 22 MEQ in SODIUM CHL 0.9% 100 ML IV ONE (14:34)
--- NOTE | 2025-05-11 19:03 | DVHPN2 ---
Assessment/Plan Assessment/Plan progress note 69 M admitted for melena, s/p scope, recurrent UGIB. HB AM 7.1. sudden change in status, patient diaphoretic, tachycardic and hypotensive. placed on trendelenburg, IV boluses. TLC placed in. large volume hematemesis and NGT showed blood. so far 800 cc in suction canister. d/w GI, IR and surg. plan for i r emblization, MTP to stabilize, possible need for emergent surgery. started on pressors. intubated for airway protection. was placed on pressors, stress dose steroids, now off pressors. H pylori positive seen today, extubated, started on ice chips. nausea and vomiting with po intake. htn, failed scheduled iv, starting cardene physical exam aox3 clear breath sounds s1 s2 rrr abdomen soft no le edema, but thigh and UE edema labs ekg imaging reviewed POCUS done, FAST, no free fluid, subxyphoid heart looks hyperdynamic, IVC flat assessment and plan severe anemia req massive PRBC gastric ulcer, active bleeding s/p MARILIN embolization PNA, Citrobacter amalonaticus acute hypoxic RF rec mech vent acute metabolic encep hemorrhagic shock hypocalcemia tx related h pylori b/l cephalic thrombosis extubate c/w ampicilin, azithro, protonix, levoflox 2 large bore IV transfuse keep hb >8 IR for embolization IV bolus platelet, ffp protonix drip surg, GI on board calcium hold picc, possible oral feeding soon nicardipine goal SBP <150 diet NPO TPN dvt ppx hold SCD condition critical prognosis poor full code crit care time 45 minutes Plan discussed with: Patient, Daughter My Orders Orders - DILCIA DANIEL MD Procedure Category Date Status Time Enalaprilat Injection PHA 05/11/25 In Process (Vasotec Injection 18:00 Complete Blood Count LAB 05/12/25 Verified 04:00 Date of Service: May 11, 2025 Billing Provider: DILCIA DANIEL MD Common Visit Codes: [id number] CARE 30-74 MIN DILCIA DANIEL MD May 11, 2025 19:03
--- NOTE | 2025-05-11 19:10 | DVHPN2 ---
Progress Note Date Seen: May 11, 2025 Resident Creating Document: RAYMUNDO BACK RESIDENT Medical Necessity Reason Pt with a Central, PICC or Fol: Yes The following are medically ne: Central Line, Ochoa Catheter Subjective Review of Systems Patient seen and examined with the bedside On nasal cannula oxygen, no distress H&H decreased slightly from 11.4 to 10.8 Currently on TPN Denies any abdominal pain, nausea Objective vital signs Vital Sign Date Time Temp Pulse Resp B/P (MAP) Pulse Ox O2 Delivery O2 Flow Rate FiO2 05/11/25 18:30 100.0 84 19 174/74 (107) 94 212.0 05/11/25 18:00 Room Air* 0 21 Total Intake and Output 05/10/25 05/10/25 05/11/25 15:00 23:00 07:00 Intake Total 1108.464 ml 624 ml 846 ml Output Total 1000 ml 1500 ml Balance 1108.464 ml -376 ml -654 ml medications Current Medications Medications Dose Ordered Sig/Odrene Route Start Time Stop Time Status Last Admin Dose Admin Sucralfate 1 gm QID@0600,1130,1700,2200 PO 04/28/25 17:00 05/11/25 17:14 1 GM Pantoprazole Sodium 50 ml @ 10 mls/hr Q5H IV 04/28/25 14:15 05/11/25 17:28 10 MLS/HR Dextrose 50 ml UD PRN IV 05/04/25 22:00 Diagnostic Test (Pha) 1 strip Q6HR 05/05/25 16:30 05/11/25 17:16 1 STRIP Insulin Human Lispro Q6HR SC 05/05/25 16:30 05/09/25 12:01 1 UNITS Amino Acids 0 ml @ 0 mls/hr PER PHARMACY IV 05/06/25 11:00 Ampicillin Sodium 1 gm/Sodium Chloride 100 ml @ 200 mls/hr Q6HR IV 05/07/25 18:00 05/11/25 17:15 200 MLS/HR Azithromycin 250 ml @ 125 mls/hr DAILY IV 05/07/25 15:30 05/11/25 10:00 125 MLS/HR Levofloxacin/ Dextrose 100 ml @ 100 mls/hr DAILY IV 05/07/25 15:30 05/11/25 12:03 100 MLS/HR Iron Sucrose 110 ml @ 110 mls/hr DAILY@1200 IV 05/08/25 12:00 05/12/25 12:59 05/11/25 12:19 110 MLS/HR Fat Emulsion Intravenous 150 ml/Potassium Phosphate 22 meq/ Calcium Gluconate 2.3 meq/Magnesium Sulfate 4 meq/ Multivitamins 10 ml/Chromium/ Copper/Manganese/ Zinc 1 ml/Amino Acids/Dextrose 1,371.9462 ml @ 57 mls/hr Q24H5M IV 05/10/25 22:00 05/11/25 21:59 05/10/25 21:04 57 MLS/HR Nicotine 1 patch DAILY TD 05/11/25 10:00 05/11/25 12:08 1 PATCH Ondansetron HCl 4 mg Q8HPRN PRN IV 05/10/25 17:45 05/11/25 03:36 4 MG Fat Emulsion Intravenous 150 ml/Potassium Phosphate 44 meq/ Calcium Gluconate 2.3 meq/Magnesium Sulfate 8 meq/ Multivitamins 10 ml/Chromium/ Copper/Manganese/ Zinc 1 ml/Amino Acids/Dextrose 1,477.9462 ml @ 62 mls/hr [id number] IV 05/11/25 22:00 05/12/25 21:59 Enalaprilat 5 mg Q6HR IV 05/11/25 18:00 05/11/25 17:15 5 MG Examination Gen - mild conjunctiva to pallor, no scleral icterus Skin - Patients skin is warm and dry. HEENT - normocephalic, atraumatic, dry mucous membranes. Neck - supple, no lymphadenopathy Pulmonary - B/L equal air entry with a decreased breath sound in the right lower cardiovascular - regular S1,S2 heard GI - soft abdomen. Bowel sounds normoactive. Neurological - patient is alert and oriented X 3 laboratory and microbiology Laboratory Tests 05/11/25 03:15 Test 05/11/25 03:15 Range/Units Serum Glucose 133 H 74-106 mg/dL Microbiology Date/Time Source Procedure Growth Status 05/03/25 18:30 Blood Blood Culture - Final NO GROWTH AFTER 5 DAYS OF INCUBATION. Complete 05/03/25 13:35 Sputum Gram Stain - Final Complete 05/03/25 13:35 Respiratory Culture - Final Citrobacter amalonaticus Complete 10/12/25 04:21 Nose MRSA Screen - Final Complete Problem List/Assessment/Plan Problem List/Assessment/Plan Assessment Severe anemia requiring massive transfusion Cardiopulmonary arrest s/p ROSC Bleeding gastric ulcer status post MARILIN embolization H pylori gastritis Intestinal metaplasia seen on biopsy Plan H&H stable, continue monitoring Continue IV Protonix drip and Carafate q.i.d. Ice chips, continued on TPN Iron IV IV antibiotics for H pylori Plan discussed with Dr. Ott Plan discussed with: Patient, Other (CRISTIN Polanco) Dietary Evaluation Review Comments: Nutrition Recommendation: 1) TPN/PN if NPO>7 days 2) Advance to soft diet as medically feasible 3) Monitor NPO status, lab values, weight trend, and I/O Expected Outcomes/Goals: To meet >75% estimated needs GI symptoms to improve Fu 2-3 days CC Plasma Assessment Blood Product Administration S: [id number] RAYMUNDO BACK RESIDENT May 11, 2025 19:10
[2025-05-11] MEDS: KETOROLAC TROMETH 30 MG/ML 1ML VIAL IV ONE (20:22)
[2025-05-11] MEDS: TPN PER PHARMACY IV NR (22:31)
[2025-05-12] VITALS (94 sets, daily range): BP systolic 123–183; BP diastolic 44–88; PULSE 78–120; RESP 9–31; TEMP 98.8–100; O2SAT 86–98
[2025-05-12 03:41] LABS: Hematocrit 33.9 % (41.0-53.0); Hemoglobin 11.5 g/dL (13.5-17.5); Mean Corpuscular Hemoglobin 31.2 pg (28.0-32.0); Mean Corpuscular Volume 92.2 fL (80.0-100.0); Nucleated Red Blood Cells % 0.0 %
[2025-05-12 04:09] LABS: Alanine Aminotransferase 65 U/L (7-40); Albumin 2.4 g/dL (3.2-4.8); Alkaline Phosphatase 93 U/L (46-116); Anion Gap 8 (5-15); BUN/Creatinine Ratio 29.8 (10.0-20.0); Bilirubin, Total 0.6 mg/dL (0.2-1.0); Blood Urea Nitrogen 14 mg/dL (9-23); Calcium 7.2 mg/dL (8.7-10.4); Carbon Dioxide 30 mmol/L (20-31); Chloride 104 mmol/L (98-107); Glucose 135 mg/dL (74-106); Magnesium 2.1 mg/dL (1.6-2.6); Potassium 3.2 mmol/L (3.5-5.1); Sodium 142 mmol/L (136-145); Total Protein 4.4 g/dL (5.7-8.2)
[2025-05-12] MEDS: POTASSIUM CHL 20MEQ/100ML 100 ML IV ONE (05:49)
[2025-05-12] MEDS: POTASSIUM PHOSPHATE 44 MEQ in D5W 5% 250 ML IV ONE (11:12)
--- NOTE | 2025-05-12 14:34 | DVHPN2 ---
Assessment/Plan Assessment/Plan progress note 69 M admitted for melena, s/p scope, recurrent UGIB. HB AM 7.1. sudden change in status, patient diaphoretic, tachycardic and hypotensive. placed on trendelenburg, IV boluses. TLC placed in. large volume hematemesis and NGT showed blood. so far 800 cc in suction canister. d/w GI, IR and surg. plan for i r emblization, MTP to stabilize, possible need for emergent surgery. started on pressors. intubated for airway protection. was placed on pressors, stress dose steroids, now off pressors. H pylori positive. extubated, started on ice chips. nausea and vomiting with po intake. htn, failed scheduled iv, starting cardene seen today, start clear liq diet. po meds started to titrate off nicardipine physical exam aox3 clear breath sounds s1 s2 rrr abdomen soft no le edema, but thigh and UE edema labs ekg imaging reviewed POCUS done, FAST, no free fluid, subxyphoid heart looks hyperdynamic, IVC flat assessment and plan severe anemia req massive PRBC gastric ulcer, active bleeding s/p MARILIN embolization PNA, Citrobacter amalonaticus acute hypoxic RF rec mech vent acute metabolic encep hemorrhagic shock hypocalcemia tx related h pylori b/l cephalic thrombosis extubate c/w ampicilin, azithro, protonix, levoflox 2 large bore IV transfuse keep hb >8 IR for embolization IV bolus platelet, ffp protonix drip surg, GI on board calcium hold picc, possible oral feeding soon nicardipine goal SBP <150 diet clear liq dvt ppx hold SCD condition critical prognosis poor full code crit care time 45 minutes Plan discussed with: Patient My Orders Orders - DILCIA DANIEL MD Procedure Category Date Status Time Nicardipine 20 Mg/200 PHA 05/11/25 In Process Ml (Cardene Iv) 19:00 Clear Liq Diet DIET 05/12/25 Transmitted Dinner Losartan Tablet PHA 05/12/25 Logged (Cozaar Tablet) 14:30 Losartan Tablet PHA 05/13/25 Logged (Cozaar Tablet) 10:00 Furosemide Tablet PHA 05/12/25 Logged (Lasix Tablet) 14:30 Furosemide Tablet PHA 05/13/25 Logged (Lasix Tablet) 10:00 Basic Metabolic Panel LAB 05/13/25 Verified 04:00 Complete Blood Count LAB 05/13/25 Verified 04:00 Hydrocodone-Acet PHA 05/12/25 Transmitted 5/325mg Tab ([place] 14:45 Discontinue Ng ORDERS 05/12/25 Verified 14:32 Date of Service: May 12, 2025 Billing Provider: DILCIA DANIEL MD Common Visit Codes: [id number] CARE 30-74 MIN DILCIA DANIEL MD May 12, 2025 14:34
[2025-05-12] MEDS: LOSARTAN POTASSIUM 25 MG TAB PO ONE (15:35)
[2025-05-12] MEDS: FUROSEMIDE 20 MG TAB PO ONE (15:36)
--- NOTE | 2025-05-12 19:25 | DVHPN2 ---
Progress Note Date Seen: May 12, 2025 Resident Creating Document: RAYMUNDO BACK RESIDENT Medical Necessity Reason Pt with a Central, PICC or Fol: Yes The following are medically ne: Central Line, Ochoa Catheter Subjective Review of Systems Seen and examined at the bedside Does not report of any abdominal pain Started on sips and water which she is tolerating well without any nausea or vomiting NG tube to LIS without any suction Objective vital signs Vital Sign Date Time Temp Pulse Resp B/P (MAP) Pulse Ox O2 Delivery O2 Flow Rate FiO2 05/12/25 17:15 99.3 93 22 166/80 (108) 92 210.7 05/12/25 16:00 Room Air* 0 21 Total Intake and Output 05/11/25 05/11/25 05/12/25 15:00 23:00 07:00 Intake Total 1296 ml 684 ml 951 ml Output Total 1450 ml 2850 ml Balance 1296 ml -766 ml -1899 ml medications Current Medications Medications Dose Ordered Sig/Dorene Route Start Time Stop Time Status Last Admin Dose Admin Sucralfate 1 gm QID@0600,1130,1700,2200 PO 04/28/25 17:00 05/12/25 16:59 1 GM Pantoprazole Sodium 50 ml @ 10 mls/hr Q5H IV 04/28/25 14:15 05/12/25 14:00 10 MLS/HR Dextrose 50 ml UD PRN IV 05/04/25 22:00 Diagnostic Test (Pha) 1 strip Q6HR 05/05/25 16:30 05/12/25 17:55 1 STRIP Insulin Human Lispro Q6HR SC 05/05/25 16:30 05/09/25 12:01 1 UNITS Amino Acids 0 ml @ 0 mls/hr PER PHARMACY IV 05/06/25 11:00 Ampicillin Sodium 1 gm/Sodium Chloride 100 ml @ 200 mls/hr Q6HR IV 05/07/25 18:00 05/12/25 17:55 200 MLS/HR Azithromycin 250 ml @ 125 mls/hr DAILY IV 05/07/25 15:30 05/12/25 09:44 125 MLS/HR Levofloxacin/ Dextrose 100 ml @ 100 mls/hr DAILY IV 05/07/25 15:30 05/12/25 09:44 100 MLS/HR Nicotine 1 patch DAILY TD 10/21/25 10:00 05/12/25 09:54 1 PATCH Ondansetron HCl 4 mg Q8HPRN PRN IV 05/10/25 17:45 05/11/25 03:36 4 MG Fat Emulsion Intravenous 150 ml/Potassium Phosphate 44 meq/ Calcium Gluconate 2.3 meq/Magnesium Sulfate 8 meq/ Multivitamins 10 ml/Chromium/ Copper/Manganese/ Zinc 1 ml/Amino Acids/Dextrose 1,477.9462 ml @ 62 mls/hr [id number] IV 05/11/25 22:00 05/12/25 21:59 05/11/25 22:31 62 MLS/HR Nicardipine/ Sodium Chloride 200 ml @ 50 mls/hr Q4H IV 05/11/25 19:00 05/12/25 02:37 50 MLS/HR Fat Emulsion Intravenous 200 ml/Potassium Phosphate 66 meq/ Magnesium Sulfate 10 meq/ Multivitamins 10 ml/Chromium/ Copper/Manganese/ Zinc 1 ml/Amino Acids/Dextrose 1,528.5 ml @ 64 mls/hr [id number] IV 05/12/25 22:00 05/13/25 21:59 Losartan Potassium 25 mg DAILY PO 05/13/25 10:00 Furosemide 20 mg DAILY PO 05/13/25 10:00 Acetaminophen/ Hydrocodone Bitart 1 tab Q6HPRN PRN PO 05/12/25 14:45 Examination Gen - mild conjunctiva to pallor, no scleral icterus Skin - Patients skin is warm and dry. HEENT - normocephalic, atraumatic, dry mucous membranes. Neck - supple, no lymphadenopathy Pulmonary - B/L equal air entry with a decreased breath sound in the right lower cardiovascular - regular S1,S2 heard GI - soft abdomen. Bowel sounds normoactive. Neurological - patient is alert and oriented X 3 laboratory and microbiology Laboratory Tests 05/12/25 03:10 Test 05/12/25 03:10 Range/Units Serum Glucose 135 H 74-106 mg/dL Microbiology Date/Time Source Procedure Growth Status 05/03/25 18:30 Blood Blood Culture - Final NO GROWTH AFTER 5 DAYS OF INCUBATION. Complete 05/03/25 13:35 Sputum Gram Stain - Final Complete 05/03/25 13:35 Respiratory Culture - Final Citrobacter amalonaticus Complete 05/02/25 04:21 Nose MRSA Screen - Final Complete Problem List/Assessment/Plan Problem List/Assessment/Plan Assessment Severe anemia requiring massive transfusion Cardiopulmonary arrest s/p ROSC Bleeding gastric ulcer status post MARILIN embolization H pylori gastritis Intestinal metaplasia seen on biopsy Plan H&H stable, continue monitoring Continue IV Protonix drip and Carafate q.i.d. Advanced to clear liquid diet Iron IV IV antibiotics for H pylori Plan discussed with Dr. Ott Plan discussed with: Patient, Other (CRISTIN Velez) Dietary Evaluation Review Comments: Nutrition Recommendation: 1) TPN/PN if NPO>7 days 2) Advance to soft diet as medically feasible 3) Monitor NPO status, lab values, weight trend, and I/O Expected Outcomes/Goals: To meet >75% estimated needs GI symptoms to improve Fu 2-3 days CC Plasma Assessment Blood Product Administration S: [id number] RAYMUNDO BACK RESIDENT May 12, 2025 19:25
[2025-05-12] MEDS: TPN PER PHARMACY IV NR (21:41)
[2025-05-13] VITALS (63 sets, daily range): BP systolic 122–177; BP diastolic 54–89; PULSE 78–109; RESP 14–24; TEMP 98.3–98.9; O2SAT 94–100
[2025-05-13 03:59] LABS: Hematocrit 34.2 % (41.0-53.0); Hemoglobin 11.6 g/dL (13.5-17.5); Mean Corpuscular Hemoglobin 31.2 pg (28.0-32.0); Mean Corpuscular Volume 91.8 fL (80.0-100.0); Nucleated Red Blood Cells % 0.0 %
[2025-05-13 04:06] LABS: Alkaline Phosphatase 93 U/L (46-116); Anion Gap 7 (5-15); BUN/Creatinine Ratio 28.6 (10.0-20.0); Blood Urea Nitrogen 14 mg/dL (9-23); Carbon Dioxide 28 mmol/L (20-31); Chloride 104 mmol/L (98-107); Magnesium 2.0 mg/dL (1.6-2.6); Potassium 3.7 mmol/L (3.5-5.1); Sodium 139 mmol/L (136-145)
[2025-05-13 04:07] LABS: Bilirubin, Total 0.5 mg/dL (0.2-1.0)
[2025-05-13 04:14] LABS: Alanine Aminotransferase 63 U/L (7-40); Albumin 2.5 g/dL (3.2-4.8); Calcium 7.2 mg/dL (8.7-10.4); Glucose 111 mg/dL (74-106); Total Protein 4.6 g/dL (5.7-8.2)
[2025-05-13] MEDS: LOSARTAN POTASSIUM 25 MG TAB PO SCH (10:28)
[2025-05-13] MEDS: FUROSEMIDE 20 MG TAB PO SCH (10:29)
[2025-05-13] MEDS: POTASSIUM PHOSPHATE 26.4 MEQ in SODIUM CHL 0.9% 100 ML IV ONE (11:44)
--- NOTE | 2025-05-13 14:50 | DVHPN2 ---
Assessment/Plan Assessment/Plan progress note 69 M admitted for melena, s/p scope, recurrent UGIB. HB AM 7.1. sudden change in status, patient diaphoretic, tachycardic and hypotensive. placed on trendelenburg, IV boluses. TLC placed in. large volume hematemesis and NGT showed blood. so far 800 cc in suction canister. d/w GI, IR and surg. plan for i r emblization, MTP to stabilize, possible need for emergent surgery. started on pressors. intubated for airway protection. was placed on pressors, stress dose steroids, now off pressors. H pylori positive. extubated, started on ice chips. nausea and vomiting with po intake. htn, failed scheduled iv, starting cardene seen today, c/w po diet, titrate po meds. transfer to tele. OOB, PT. physical exam aox3 clear breath sounds s1 s2 rrr abdomen soft no le edema, but thigh and UE edema labs ekg imaging reviewed POCUS done, FAST, no free fluid, subxyphoid heart looks hyperdynamic, IVC flat assessment and plan severe anemia req massive PRBC gastric ulcer, active bleeding s/p MARILIN embolization PNA, Citrobacter amalonaticus acute hypoxic RF rec mech vent acute metabolic encep hemorrhagic shock hypocalcemia tx related h pylori b/l cephalic thrombosis extubate c/w ampicilin, azithro, protonix, levoflox 2 large bore IV transfuse keep hb >8 IR for embolization IV bolus platelet, ffp protonix drip surg, GI on board calcium hold picc, possible oral feeding soon nicardipine goal SBP <150 diet clear liq dvt ppx hold SCD condition critical prognosis poor full code crit care time 35 minutes Plan discussed with: Patient My Orders Orders - DILCIA DANIEL MD Procedure Category Date Status Time Losartan Tablet PHA 05/14/25 In Process (Cozaar Tablet) 10:00 Pt Request For Service PT 05/13/25 Logged 14:04 Transfer Orders XFER 05/13/25 Transmitted 14:07 Date of Service: May 13, 2025 Billing Provider: DILCIA DANIEL MD Common Visit Codes: [id number] CARE 30-74 MIN DILCIA DANIEL MD May 13, 2025 14:50
--- NOTE | 2025-05-13 20:48 | DVHPN2 ---
Progress Note - Dictate Date Seen: May 13, 2025 Medical Necessity Reason Pt with a Central, PICC or Fol: Yes The following are medically ne: Central Line, Ochoa Catheter Subjective No new complaints, patient downgraded to telemetry Patient was tolerating a clear liquid diet Patient underwent physical therapy Pathology of the ulcer showed intestinal metaplasia and numerous H.pylori, there was no dysplasia or malignancy IR physician Dr. 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 vital signs Vital Sign Date Time Temp Pulse Resp B/P (MAP) Pulse Ox O2 Delivery O2 Flow Rate FiO2 05/13/25 16:57 98.9 99 16 158/83 (108) 94 98.9 05/13/25 14:00 Nasal Cannula* 2 28 Total Intake and Output 05/12/25 05/12/25 05/13/25 15:00 23:00 07:00 Intake Total 1318.0 ml 920.0 ml 632 ml Output Total 2425 ml 4475 ml Balance 1318.0 ml -1505.0 ml -3843 ml medications Current Medications Medications Dose Ordered Sig/Dorene Route Start Time Stop Time Status Last Admin Dose Admin Sucralfate 1 gm QID@0600,1130,1700,2200 PO 04/28/25 17:00 05/13/25 17:35 1 GM Pantoprazole Sodium 50 ml @ 10 mls/hr Q5H IV 04/28/25 14:15 05/13/25 18:17 10 MLS/HR Dextrose 50 ml UD PRN IV 05/04/25 22:00 Diagnostic Test (Pha) 1 strip Q6HR 05/05/25 16:30 05/13/25 17:30 1 STRIP Insulin Human Lispro Q6HR SC 05/05/25 16:30 05/13/25 12:06 1 UNITS Amino Acids 0 ml @ 0 mls/hr PER PHARMACY IV 05/06/25 11:00 Ampicillin Sodium 1 gm/Sodium Chloride 100 ml @ 200 mls/hr Q6HR IV 05/07/25 18:00 05/13/25 17:56 200 MLS/HR Azithromycin 250 ml @ 125 mls/hr DAILY IV 05/07/25 15:30 05/13/25 10:49 125 MLS/HR Levofloxacin/ Dextrose 100 ml @ 100 mls/hr DAILY IV 05/07/25 15:30 05/13/25 10:22 100 MLS/HR Nicotine 1 patch DAILY TD 05/11/25 10:00 05/13/25 10:37 1 PATCH Ondansetron HCl 4 mg Q8HPRN PRN IV 05/10/25 17:45 05/11/25 03:36 4 MG Nicardipine/ Sodium Chloride 200 ml @ 50 mls/hr Q4H IV 05/11/25 19:00 05/13/25 08:15 50 MLS/HR Fat Emulsion Intravenous 200 ml/Potassium Phosphate 66 meq/ Magnesium Sulfate 10 meq/ Multivitamins 10 ml/Chromium/ Copper/Manganese/ Zinc 1 ml/Amino Acids/Dextrose 1,528.5 ml @ 64 mls/hr [id number] IV 05/12/25 22:00 05/13/25 21:59 05/12/25 21:41 64 MLS/HR Furosemide 20 mg DAILY PO 05/13/25 10:00 05/13/25 10:29 20 MG Acetaminophen/ Hydrocodone Bitart 1 tab Q6HPRN PRN PO 05/12/25 14:45 Fat Emulsion Intravenous 200 ml/Sodium Chloride 20 meq/ Potassium Phosphate 88 meq/ Magnesium Sulfate 12 meq/ Multivitamins 10 ml/Chromium/ Copper/Manganese/ Zinc 1 ml/Amino Acids/Dextrose 1,539 ml @ 64 mls/hr Q24H3M IV 05/13/25 22:00 05/14/25 21:59 Losartan Potassium 50 mg DAILY PO 05/14/25 10:00 objective aox3 clear breath sounds s1 s2 rrr abdomen soft no le edema, but thigh and UE edema laboratory and microbiology Laboratory Tests 05/13/25 03:08 Test 05/13/25 03:08 Range/Units Serum Glucose 111 H 74-106 mg/dL Problems(with codes): (1) H pylori ulcer (2) Gastric ulcer (3) GI bleed (4) Abdominal pain (5) Blood loss anemia Prognosis Plan Advance to full liquid diet Continue to monitor labs IV Protonix 40 mg q.12 hours Carafate suspension 1 g 4 times a day Change H.pylori treatment to oral medications Amoxicillin 1 g p.o. twice a day Biaxin 500 mg p.o. twice a day Patient will likely need to continue these antibiotics for another week I will likely repeat a outpatient elective endoscopy in 6-8 weeks or as clinically indicated Dietary Evaluation Review Comments: Nutrition Recommendation: 1) TPN/PN if NPO>7 days 2) Advance to soft diet as medically feasible 3) Monitor NPO status, lab values, weight trend, and I/O Expected Outcomes/Goals: To meet >75% estimated needs GI symptoms to improve Fu 2-3 days Plan discussed with: Other (Dr Dahl) CC Plasma Assessment Blood Product Administration S: [id number] JANETT JACOBS MD May 13, 2025 20:48
[2025-05-13] MEDS: TPN PER PHARMACY IV NR (21:16)
[2025-05-14] VITALS (8 sets, daily range): BP systolic 121–151; BP diastolic 68–84; PULSE 80–103; RESP 17–19; TEMP 94–98.7; O2SAT 94–98
[2025-05-14] MEDS: LOSARTAN POTASSIUM 25 MG TAB PO SCH (09:10)
[2025-05-14 10:05] LABS: Hematocrit 35.9 % (41.0-53.0); Hemoglobin 11.8 g/dL (13.5-17.5); Mean Corpuscular Hemoglobin 30.6 pg (28.0-32.0); Mean Corpuscular Volume 93.0 fL (80.0-100.0); Nucleated Red Blood Cells % 0.0 %
[2025-05-14 10:20] LABS: Alkaline Phosphatase 100 U/L (46-116); Anion Gap 7 (5-15); BUN/Creatinine Ratio 28.3 (10.0-20.0); Blood Urea Nitrogen 15 mg/dL (9-23); Carbon Dioxide 26 mmol/L (20-31); Chloride 105 mmol/L (98-107); Magnesium 2.0 mg/dL (1.6-2.6); Potassium 4.4 mmol/L (3.5-5.1); Sodium 138 mmol/L (136-145)
[2025-05-14 10:21] LABS: Bilirubin, Total 0.5 mg/dL (0.2-1.0)
[2025-05-14 10:41] LABS: Alanine Aminotransferase 84 U/L (7-40); Albumin 2.8 g/dL (3.2-4.8); Calcium 7.2 mg/dL (8.7-10.4); Glucose 113 mg/dL (74-106); Total Protein 5.1 g/dL (5.7-8.2)
--- NOTE | 2025-05-14 14:52 | DVHPN2 ---
Progress Note Date Seen: May 14, 2025 Resident Creating Document: RAYMUNDO BACK RESIDENT Medical Necessity Reason Pt with a Central, PICC or Fol: Yes The following are medically ne: Ochoa Catheter Subjective Review of Systems no acute complaints of N/V tolerating clear liquid diet well continue on clear liquid for today and advance to full liquids tomorrow Objective vital signs Vital Sign Date Time Temp Pulse Resp B/P (MAP) Pulse Ox O2 Delivery O2 Flow Rate FiO2 05/14/25 09:10 150/79 05/14/25 09:00 97.9 95 19 95 97.9 05/14/25 08:00 Room Air* 0 21 Total Intake and Output 05/13/25 05/13/25 05/14/25 15:00 23:00 07:00 Intake Total 1691.57 ml 74 ml 480 ml Output Total 3175 ml 3200 ml Balance -1483.43 ml 74 ml -2720 ml medications Current Medications Medications Dose Ordered Sig/Dorene Route Start Time Stop Time Status Last Admin Dose Admin Sucralfate 1 gm QID@0600,1130,1700,2200 PO 04/28/25 17:00 05/14/25 11:49 1 GM Pantoprazole Sodium 50 ml @ 10 mls/hr Q5H IV 04/28/25 14:15 05/14/25 11:23 10 MLS/HR Dextrose 50 ml UD PRN IV 05/04/25 22:00 Diagnostic Test (Pha) 1 strip Q6HR 05/05/25 16:30 05/14/25 11:43 1 STRIP Insulin Human Lispro Q6HR SC 05/05/25 16:30 05/13/25 12:06 1 UNITS Amino Acids 0 ml @ 0 mls/hr PER PHARMACY IV 05/06/25 11:00 Ampicillin Sodium 1 gm/Sodium Chloride 100 ml @ 200 mls/hr Q6HR IV 05/07/25 18:00 05/14/25 12:33 200 MLS/HR Azithromycin 250 ml @ 125 mls/hr DAILY IV 05/07/25 15:30 05/14/25 09:09 125 MLS/HR Levofloxacin/ Dextrose 100 ml @ 100 mls/hr DAILY IV 05/07/25 15:30 05/14/25 09:09 100 MLS/HR Nicotine 1 patch DAILY TD 05/11/25 10:00 05/14/25 09:09 1 PATCH Ondansetron HCl 4 mg Q8HPRN PRN IV 05/10/25 17:45 05/11/25 03:36 4 MG Furosemide 20 mg DAILY PO 05/13/25 10:00 05/14/25 09:10 20 MG Acetaminophen/ Hydrocodone Bitart 1 tab Q6HPRN PRN PO 05/12/25 14:45 Fat Emulsion Intravenous 200 ml/Sodium Chloride 20 meq/ Potassium Phosphate 88 meq/ Magnesium Sulfate 12 meq/ Multivitamins 10 ml/Chromium/ Copper/Manganese/ Zinc 1 ml/Amino Acids/Dextrose 1,539 ml @ 64 mls/hr Q24H3M IV 05/13/25 22:00 05/14/25 21:59 05/13/25 21:16 64 MLS/HR Losartan Potassium 50 mg DAILY PO 05/14/25 10:00 05/14/25 09:10 50 MG Fat Emulsion Intravenous 200 ml/Sodium Chloride 20 meq/ Sodium Acetate 10 meq/Sodium Phosphate 20 meq/ Potassium Phosphate 66 meq/ Calcium Gluconate 2.3 meq/Magnesium Sulfate 12 meq/ Multivitamins 10 ml/Chromium/ Copper/Manganese/ Zinc 1 ml/Amino Acids/Dextrose 1,548.9462 ml @ 64 mls/hr [id number] IV 05/14/25 22:00 05/15/25 21:59 Cancel Fat Emulsion Intravenous 200 ml/Sodium Chloride 20 meq/ Sodium Acetate 10 meq/Potassium Phosphate 66 meq/ Calcium Gluconate 2.3 meq/Magnesium Sulfate 12 meq/ Multivitamins 10 ml/Chromium/ Copper/Manganese/ Zinc 1 ml/Amino Acids/Dextrose 1,543.9462 ml @ 64 mls/hr Q24H8M IV 05/14/25 22:00 05/15/25 21:59 Examination Gen - mild conjunctival pallor, no scleral icterus Skin - Patients skin is warm and dry. HEENT - normocephalic, atraumatic, dry mucous membranes. Neck - supple, no lymphadenopathy Pulmonary - B/L equal air entry with a decreased breath sound in the right lower cardiovascular - regular S1,S2 heard GI - soft abdomen. Bowel sounds normoactive. Neurological - patient is alert and oriented X 3 laboratory and microbiology Laboratory Tests 05/14/25 09:49 Test 05/14/25 09:49 Range/Units Serum Glucose 113 H 74-106 mg/dL Microbiology Date/Time Source Procedure Growth Status 05/03/25 18:30 Blood Blood Culture - Final NO GROWTH AFTER 5 DAYS OF INCUBATION. 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 tolerating clear liquid diet and advance to full liquid tomorrow Iron IV IV antibiotics for H pylori Plan discussed with Dr. Ott Plan discussed with: Patient, Other (CRISTIN Varela) Dietary Evaluation Review Comments: Nutrition Recommendation: 1) TPN/PN if NPO>7 days 2) Advance to soft diet as medically feasible 3) Monitor NPO status, lab values, weight trend, and I/O Expected Outcomes/Goals: To meet >75% estimated needs GI symptoms to improve Fu 2-3 days CC Plasma Assessment Blood Product Administration S: [id number] RAYMUNDO BACK RESIDENT May 14, 2025 14:52
--- NOTE | 2025-05-14 19:35 | DVHPN2 ---
Assessment/Plan Assessment/Plan progress note 69 M admitted for melena, s/p scope, recurrent UGIB. HB AM 7.1. sudden change in status, patient diaphoretic, tachycardic and hypotensive. placed on trendelenburg, IV boluses. TLC placed in. large volume hematemesis and NGT showed blood. so far 800 cc in suction canister. d/w GI, IR and surg. plan for i r emblization, MTP to stabilize, possible need for emergent surgery. started on pressors. intubated for airway protection. was placed on pressors, stress dose steroids, now off pressors. H pylori positive. extubated, started on ice chips. nausea and vomiting with po intake. htn, failed scheduled iv, starting cardene, now off. diet advanced. seen today, c/w work with pt. will keep on clear liq. ok to give po meds, ambulating. OOBTC. dc tlc once tpn bag out. physical exam aox3 clear breath sounds s1 s2 rrr abdomen soft no le edema, but thigh and UE edema labs ekg imaging reviewed POCUS done, FAST, no free fluid, subxyphoid heart looks hyperdynamic, IVC flat assessment and plan severe anemia req massive PRBC gastric ulcer, active bleeding s/p MARILIN embolization PNA, Citrobacter amalonaticus acute hypoxic RF rec mech vent acute metabolic encep hemorrhagic shock hypocalcemia tx related h pylori b/l cephalic thrombosis extubate c/w ampicilin, azithro, protonix, levoflox 2 large bore IV transfuse keep hb >8 IR for embolization IV bolus platelet, ffp protonix drip surg, GI on board calcium hold picc, possible oral feeding soon nicardipine goal SBP <150 dc tlc, dc crouch diet clear liq dvt ppx hold SCD condition critical prognosis poor full code Plan discussed with: Patient Date of Service: May 14, 2025 Billing Provider: DILCIA DANIEL MD Common Visit Codes: [id number] INP/OBS CARE(HIGH) DILCIA DANIEL MD May 14, 2025 19:35
[2025-05-14] MEDS ORDERED: [UNRECOGNIZED DRUG - OTHER] IV SCH (22:00)
[2025-05-14] MEDS ORDERED: [UNRECOGNIZED DRUG - OTHER] IV NR (22:00)
[2025-05-14] MEDS ORDERED: SODIUM ACETATE IV NR (22:00)
[2025-05-14] MEDS ORDERED: FAT EMULSION IV NR (22:00)
[2025-05-14] MEDS ORDERED: SODIUM CHLORIDE IV NR (22:00)
[2025-05-14] MEDS: PANTOPRAZOLE 40 MG/10 ML VIAL INJ IV SCH (22:07)
[2025-05-14] MEDS: SODIUM CHLORIDE IV NR (22:22)
[2025-05-14] MEDS: [UNRECOGNIZED DRUG - OTHER] IV NR (22:22)
[2025-05-14] MEDS: FAT EMULSION IV NR (22:22)
[2025-05-14] MEDS: SODIUM ACETATE IV NR (22:22)
[2025-05-15] VITALS (8 sets, daily range): BP systolic 117–161; BP diastolic 63–84; PULSE 78–119; RESP 17–20; TEMP 97.5–98.9; O2SAT 94–98
[2025-05-15] MEDS: AZITHROMYCIN 500MG/ 250ML 250 ML IV SCH (08:20)
[2025-05-15 10:41] LABS: Alkaline Phosphatase 111 U/L (46-116); Anion Gap 10 (5-15); BUN/Creatinine Ratio 19.0 (10.0-20.0); Blood Urea Nitrogen 12 mg/dL (9-23); Carbon Dioxide 24 mmol/L (20-31); Chloride 105 mmol/L (98-107); Magnesium 2.2 mg/dL (1.6-2.6); Potassium 4.3 mmol/L (3.5-5.1); Sodium 139 mmol/L (136-145); Triglycerides 84 mg/dL (< 150)
[2025-05-15 10:42] LABS: Bilirubin, Total 0.4 mg/dL (0.2-1.0)
[2025-05-15 10:43] LABS: Alanine Aminotransferase 114 U/L (7-40); Albumin 3.0 g/dL (3.2-4.8); Calcium 7.5 mg/dL (8.7-10.4); Glucose 125 mg/dL (74-106); Total Protein 5.5 g/dL (5.7-8.2)
--- NOTE | 2025-05-15 18:03 | DVHPN2 ---
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 Patient did require multiple units of packed RBC Reviewed: Care Plan, H&P, Labs, Medications, Previous Orders, Radiology Changes from previous H/P or p: No Changes Objective Vitals Vital Signs Date Time Temp Pulse Resp B/P (MAP) Pulse Ox O2 Delivery O2 Flow Rate FiO2 05/15/25 17:00 98.9 101 17 124/74 (91) 97 98.9 05/15/25 08:00 Room Air* 0 21 Intake/Output Intake and Output 05/15/25 07:00 Intake Total 500 ml Output Total 3000 ml Balance -2500 ml Intake Oral 500 ml Output Urine Total 3000 ml Exam HEENT pupils are reactive Neck is supple CV is S1-S2 regular rate and rhythm SP but clear neck GI positive bowel sound Extremity no edema [employer] no motor deficit Medications Current Medications Medications Dose Ordered Sig/Dornee Route Start Time Stop Time Status Last Admin Dose Admin Sucralfate 1 gm QID@0600,1130,1700,2200 PO 04/28/25 17:00 05/15/25 17:04 1 GM Dextrose 50 ml UD PRN IV 05/04/25 22:00 Diagnostic Test (Pha) 1 strip Q6HR 05/05/25 16:30 05/15/25 17:04 1 STRIP Insulin Human Lispro Q6HR SC 05/05/25 16:30 05/13/25 12:06 1 UNITS Amino Acids 0 ml @ 0 mls/hr PER PHARMACY IV 05/06/25 11:00 Levofloxacin/ Dextrose 100 ml @ 100 mls/hr DAILY IV 05/07/25 15:30 05/15/25 09:32 100 MLS/HR Nicotine 1 patch DAILY TD 05/11/25 10:00 05/15/25 09:32 1 PATCH Ondansetron HCl 4 mg Q8HPRN PRN IV 05/10/25 17:45 05/11/25 03:36 4 MG Furosemide 20 mg DAILY PO 05/13/25 10:00 05/15/25 09:33 20 MG Acetaminophen/ Hydrocodone Bitart 1 tab Q6HPRN PRN PO 05/12/25 14:45 Losartan Potassium 50 mg DAILY PO 05/14/25 10:00 05/15/25 09:33 50 MG Fat Emulsion Intravenous 200 ml/Sodium Chloride 20 meq/ Sodium Acetate 10 meq/Sodium Phosphate 20 meq/ Potassium Phosphate 66 meq/ Calcium Gluconate 2.3 meq/Magnesium Sulfate 12 meq/ Multivitamins 10 ml/Chromium/ Copper/Manganese/ Zinc 1 ml/Amino Acids/Dextrose 1,548.9462 ml @ 64 mls/hr [id number] IV 05/14/25 22:00 05/15/25 21:59 Cancel Fat Emulsion Intravenous 200 ml/Sodium Chloride 20 meq/ Sodium Acetate 10 meq/Potassium Phosphate 66 meq/ Calcium Gluconate 2.3 meq/Magnesium Sulfate 12 meq/ Multivitamins 10 ml/Chromium/ Copper/Manganese/ Zinc 1 ml/Amino Acids/Dextrose 1,543.9462 ml @ 64 mls/hr Q24H8M IV 05/14/25 22:00 05/15/25 21:59 05/14/25 22:22 64 MLS/HR Pantoprazole Sodium 40 mg TID IV 05/14/25 22:00 05/15/25 13:41 40 MG Cefepime HCl 50 ml @ 12.5 mls/hr Q12HR IV 05/14/25 22:00 Cancel Azithromycin 250 ml @ 125 mls/hr DAILY@0800 IV 05/15/25 08:00 05/18/25 15:29 05/15/25 08:20 125 MLS/HR Fat Emulsion Intravenous 150 ml/Sodium Chloride 10 meq/ Sodium Acetate 10 meq/Potassium Phosphate 44 meq/ Calcium Gluconate 4.65 meq/ Magnesium Sulfate 10 meq/ Multivitamins 10 ml/Chromium/ Copper/Manganese/ Zinc 1 ml/Amino Acids/Dextrose 1,441 ml @ 60 mls/hr Q24H1M IV 05/15/25 22:00 05/16/25 21:59 Laboratory Results Laboratory Tests 05/14/25 09:49 05/15/25 10:00 Chemistry Test 05/15/25 10:00 Albumin 3.0 g/dL (3.2-4.8) L Calcium Level 7.5 mg/dL (8.7-10.4) L Magnesium Level 2.2 mg/dL (1.6-2.6) Phosphorus Level 2.7 mg/dL (2.4-5.1) Total Protein 5.5 g/dL (5.7-8.2) L Lipid panel Test 05/15/25 10:00 Triglycerides Level 84 mg/dL (< 150) LFT Test 05/15/25 10:00 Alanine Aminotransferase (ALT) 114 U/L (7-40) H Alkaline Phosphatase 111 U/L (46-116) Aspartate Amino Transferase (AST) 82 U/L (13-40) H Total Bilirubin 0.4 mg/dL (0.2-1.0) Urinalysis Test 04/27/25 23:27 Urine Color Colorless (Yellow) Urine Clarity Turbid (Clear) H Urine pH 6.0 (5.0-9.0) Urine Specific [place] 1.015 (1.001-1.035) Urine Protein 1+ (Negative) H Urine Ketones Negative (Negative) Urine Blood 1+ /uL (Negative) H Urine Nitrite Negative (Negative) Urine Bilirubin Negative (Negative) Urine Urobilinogen Normal mg/dL (Negative) Urine Leukocyte Esterase Negative /uL (Negative) Urine Glucose 1+ mg/dL (Normal) H Microbiology Microbiology Date/Time Source Procedure Growth Status 05/03/25 18:30 Blood Blood Culture - Final NO GROWTH AFTER 5 DAYS OF INCUBATION. Complete 05/03/25 13:35 Sputum Gram Stain - Final Complete 05/03/25 13:35 Respiratory Culture - Final Citrobacter amalonaticus Complete 05/02/25 04:21 Nose MRSA Screen - Final Complete Assessment/Plan Assessment/Plan 69-year-old male who initially presented to the hospital with black tarry stool found to have 1. Acute hemorrhagic symptomatic anemia status post multiple units of packed RBC 2. Upper GI bleed status post EGD showed large gastric ulcer 3. Status post coil embolization of gastroduodenal artery pseudoaneurysm 4. H pylori 5. Acute hypoxic respiratory failure status post intubation, currently extubated on minimal nasal supplemental oxygen -continue Protonix and Carafate, continue current IV antibiotics Follow up GI recommendations ,we will treat H pylori with the p.o. antibiotics once tolerates diet. Plan discussed with: Patient, Son Date of Service: May 15, 2025 Billing Provider: LYNN FANG MD Common Visit Codes: [id number] INP/OBS CARE(HIGH) LYNN FANG MD May 15, 2025 18:03
[2025-05-15] MEDS: TPN PER PHARMACY IV NR (22:15)
--- NOTE | 2025-05-15 23:58 | DVHPN2 ---
Progress Note - Dictate Date Seen: May 15, 2025 (Late entryTime of visit 10:00 a.m.) Medical Necessity Reason Pt with a Central, PICC or Fol: Yes The following are medically ne: Ochoa Catheter Subjective No new complaints, patient downgraded to telemetry Patient was tolerating a clear liquid diet Patient underwent physical therapy Pathology of the ulcer showed intestinal metaplasia and numerous H.pylori, there was no dysplasia or malignancy IR physician Dr. 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 vital signs Vital Sign Date Time Temp Pulse Resp B/P (MAP) Pulse Ox O2 Delivery O2 Flow Rate FiO2 05/15/25 21:00 98.0 119 19 117/66 (83) 96 98.0 05/15/25 08:00 Room Air* 0 21 Total Intake and Output 05/14/25 05/14/25 05/15/25 15:00 23:00 07:00 Intake Total 500 ml Output Total 3000 ml Balance -2500 ml medications Current Medications Medications Dose Ordered Sig/Dorene Route Start Time Stop Time Status Last Admin Dose Admin Sucralfate 1 gm QID@0600,1130,1700,2200 PO 04/28/25 17:00 05/15/25 22:06 1 GM Dextrose 50 ml UD PRN IV 05/04/25 22:00 Diagnostic Test (Pha) 1 strip Q6HR 05/05/25 16:30 05/15/25 17:04 1 STRIP Insulin Human Lispro Q6HR SC 05/05/25 16:30 05/13/25 12:06 1 UNITS Amino Acids 0 ml @ 0 mls/hr PER PHARMACY IV 05/06/25 11:00 Levofloxacin/ Dextrose 100 ml @ 100 mls/hr DAILY IV 05/07/25 15:30 05/15/25 09:32 100 MLS/HR Nicotine 1 patch DAILY TD 05/11/25 10:00 05/15/25 09:32 1 PATCH Ondansetron HCl 4 mg Q8HPRN PRN IV 05/10/25 17:45 05/11/25 03:36 4 MG Furosemide 20 mg DAILY PO 05/13/25 10:00 05/15/25 09:33 20 MG Acetaminophen/ Hydrocodone Bitart 1 tab Q6HPRN PRN PO 05/12/25 14:45 Losartan Potassium 50 mg DAILY PO 05/14/25 10:00 05/15/25 09:33 50 MG Fat Emulsion Intravenous 200 ml/Sodium Chloride 20 meq/ Sodium Acetate 10 meq/Sodium Phosphate 20 meq/ Potassium Phosphate 66 meq/ Calcium Gluconate 2.3 meq/Magnesium Sulfate 12 meq/ Multivitamins 10 ml/Chromium/ Copper/Manganese/ Zinc 1 ml/Amino Acids/Dextrose 1,548.9462 ml @ 64 mls/hr [id number] IV 05/14/25 22:00 05/15/25 21:59 Cancel Pantoprazole Sodium 40 mg TID IV 05/14/25 22:00 05/15/25 22:06 40 MG Cefepime HCl 50 ml @ 12.5 mls/hr Q12HR IV 05/14/25 22:00 Cancel Azithromycin 250 ml @ 125 mls/hr DAILY@0800 IV 05/15/25 08:00 05/18/25 15:29 05/15/25 08:20 125 MLS/HR Fat Emulsion Intravenous 150 ml/Sodium Chloride 10 meq/ Sodium Acetate 10 meq/Potassium Phosphate 44 meq/ Calcium Gluconate 4.65 meq/ Magnesium Sulfate 10 meq/ Multivitamins 10 ml/Chromium/ Copper/Manganese/ Zinc 1 ml/Amino Acids/Dextrose 1,441 ml @ 60 mls/hr Q24H1M IV 05/15/25 22:00 05/16/25 21:59 05/15/25 22:15 60 MLS/HR objective aox3 clear breath sounds s1 s2 rrr abdomen soft no le edema, but thigh and UE edema laboratory and microbiology Laboratory Tests 05/15/25 10:00 05/14/25 09:49 Test 05/15/25 10:00 Range/Units Serum Glucose 125 H 74-106 mg/dL Problems(with codes): (1) GI bleed (2) Abdominal pain (3) Blood loss anemia (4) Hemorrhagic shock (5) H pylori ulcer Prognosis Plan Advance to full liquid diet Continue to monitor labs IV Protonix 40 mg q.12 hours Carafate suspension 1 g 4 times a day Change H.pylori treatment to oral medications Amoxicillin 1 g p.o. twice a day Biaxin 500 mg p.o. twice a day Patient will likely need to continue these antibiotics for another week I will likely repeat a outpatient elective endoscopy in 6-8 weeks or as clinically indicated Dietary Evaluation Review Comments: Nutrition Recommendation: 1) TPN/PN if NPO>7 days 2) Advance to soft diet as medically feasible 3) Monitor NPO status, lab values, weight trend, and I/O Expected Outcomes/Goals: To meet >75% estimated needs GI symptoms to improve Fu 2-3 days Plan discussed with: Patient CC Plasma Assessment Blood Product Administration S: [id number] JANETT JACOBS MD May 15, 2025 23:58
[2025-05-16] VITALS (8 sets, daily range): BP systolic 101–125; BP diastolic 58–84; PULSE 90–109; RESP 17–19; TEMP 97.6–98; O2SAT 97–99
[2025-05-16] MEDS: HYDROcodone-ACET 5/325MG TAB PO PRN ×2 (00:16→15:39)
[2025-05-16 06:44] LABS: Alkaline Phosphatase 100 U/L (46-116); Anion Gap 7 (5-15); BUN/Creatinine Ratio 24.6 (10.0-20.0); Blood Urea Nitrogen 16 mg/dL (9-23); Carbon Dioxide 27 mmol/L (20-31); Chloride 105 mmol/L (98-107); Glucose 103 mg/dL (74-106); Magnesium 2.1 mg/dL (1.6-2.6); Potassium 4.2 mmol/L (3.5-5.1); Sodium 139 mmol/L (136-145)
[2025-05-16 06:46] LABS: Bilirubin, Total 0.4 mg/dL (0.2-1.0)
[2025-05-16 06:51] LABS: Alanine Aminotransferase 88 U/L (7-40); Albumin 2.8 g/dL (3.2-4.8); Calcium 7.6 mg/dL (8.7-10.4); Total Protein 5.4 g/dL (5.7-8.2)
--- NOTE | 2025-05-16 09:53 | MEDREC ---
[facility] ASP Intervention Section I [facility] ASP Intervention: IV to PO conversion (PLEASE CONSIDER IV TO PO CONVERSION IF PT TOLERATES FOOD AND IS TAKING PO MEDICATIONS - SEE DR JACOBS NOTE) THOMAS GARNETT PHARMACIST May 16, 2025 09:53
--- NOTE | 2025-05-16 15:58 | DVHPN2 ---
Progress Note - Dictate Date Seen: May 16, 2025 Medical Necessity Reason Pt with a Central, PICC or Fol: Yes The following are medically ne: Ochoa Catheter Subjective No new complaints, patient downgraded to telemetry Patient was tolerating a full liquid diet Patient underwent physical therapy Pathology of the ulcer showed intestinal metaplasia and numerous H.pylori, there was no dysplasia or malignancy IR physician Dr. 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 vital signs Vital Sign Date Time Temp Pulse Resp B/P (MAP) Pulse Ox O2 Delivery O2 Flow Rate FiO2 05/16/25 09:20 123/91 05/16/25 09:00 97.6 101 19 99 97.6 05/15/25 20:00 Room Air* 0 21 Total Intake and Output 05/15/25 05/15/25 05/16/25 15:00 23:00 07:00 Intake Total 0 ml 1100 ml Output Total 1701 ml Balance 0 ml -601 ml medications Current Medications Medications Dose Ordered Sig/Dorene Route Start Time Stop Time Status Last Admin Dose Admin Sucralfate 1 gm QID@0600,1130,1700,2200 PO 04/28/25 17:00 05/16/25 13:23 1 GM Dextrose 50 ml UD PRN IV 05/04/25 22:00 Diagnostic Test (Pha) 1 strip Q6HR 05/05/25 16:30 05/16/25 12:26 1 STRIP Insulin Human Lispro Q6HR SC 05/05/25 16:30 05/13/25 12:06 1 UNITS Amino Acids 0 ml @ 0 mls/hr PER PHARMACY IV 05/06/25 11:00 Levofloxacin/ Dextrose 100 ml @ 100 mls/hr DAILY IV 05/07/25 15:30 05/16/25 09:10 100 MLS/HR Nicotine 1 patch DAILY TD 05/11/25 10:00 05/16/25 09:11 1 PATCH Ondansetron HCl 4 mg Q8HPRN PRN IV 05/10/25 17:45 05/11/25 03:36 4 MG Furosemide 20 mg DAILY PO 05/13/25 10:00 05/16/25 09:20 20 MG Losartan Potassium 50 mg DAILY PO 05/14/25 10:00 05/16/25 09:20 50 MG Fat Emulsion Intravenous 200 ml/Sodium Chloride 20 meq/ Sodium Acetate 10 meq/Sodium Phosphate 20 meq/ Potassium Phosphate 66 meq/ Calcium Gluconate 2.3 meq/Magnesium Sulfate 12 meq/ Multivitamins 10 ml/Chromium/ Copper/Manganese/ Zinc 1 ml/Amino Acids/Dextrose 1,548.9462 ml @ 64 mls/hr [id number] IV 05/14/25 22:00 05/15/25 21:59 Cancel Pantoprazole Sodium 40 mg TID IV 05/14/25 22:00 05/16/25 14:00 40 MG Cefepime HCl 50 ml @ 12.5 mls/hr Q12HR IV 05/14/25 22:00 Cancel Azithromycin 250 ml @ 125 mls/hr DAILY@0800 IV 05/15/25 08:00 05/18/25 15:29 05/16/25 09:11 125 MLS/HR Fat Emulsion Intravenous 150 ml/Sodium Chloride 10 meq/ Sodium Acetate 10 meq/Potassium Phosphate 44 meq/ Calcium Gluconate 4.65 meq/ Magnesium Sulfate 10 meq/ Multivitamins 10 ml/Chromium/ Copper/Manganese/ Zinc 1 ml/Amino Acids/Dextrose 1,441 ml @ 60 mls/hr Q24H1M IV 05/15/25 22:00 05/16/25 21:59 05/15/25 22:15 60 MLS/HR Fat Emulsion Intravenous 150 ml/Sodium Chloride 20 meq/ Potassium Phosphate 22 meq/ Calcium Gluconate 4.65 meq/ Magnesium Sulfate 10 meq/ Multivitamins 10 ml/Chromium/ Copper/Manganese/ Zinc 1 ml/Amino Acids/Dextrose 1,433.5 ml @ 60 mls/hr [id number] IV 05/16/25 22:00 05/17/25 21:59 Acetaminophen/ Hydrocodone Bitart 1 tab Q4HPRN PRN PO 05/16/25 15:30 05/16/25 15:39 1 TAB objective aox3 clear breath sounds s1 s2 rrr abdomen soft no le edema, but thigh and UE edema laboratory and microbiology Laboratory Tests 05/16/25 05:28 05/14/25 09:49 Test 05/16/25 05:28 Range/Units Serum Glucose 103 74-106 mg/dL Problems(with codes): (1) GI bleed (2) Abdominal pain (3) Blood loss anemia (4) Hemorrhagic shock (5) H pylori ulcer (6) Gastric ulcer Prognosis Plan Advance to pureed diet Continue to monitor labs IV Protonix 40 mg q.12 hours Carafate suspension 1 g 4 times a day Change H.pylori treatment to oral medications Amoxicillin 1 g p.o. twice a day Biaxin 500 mg p.o. twice a day Patient will likely need to continue these antibiotics for another 5 days then maintain on PPI for 6 months I will likely repeat a outpatient elective endoscopy and colonoscopy in 6-8 weeks or as clinically indicated Dietary Evaluation Review Comments: Nutrition Recommendation: 1) TPN/PN if NPO>7 days 2) Advance to soft diet as medically feasible 3) Monitor NPO status, lab values, weight trend, and I/O Expected Outcomes/Goals: To meet >75% estimated needs GI symptoms to improve Fu 2-3 days Plan discussed with: Patient CC Plasma Assessment Blood Product Administration S: [id number] JANETT JACOBS MD May 16, 2025 15:58
--- NOTE | 2025-05-16 17:38 | DVHPN2 ---
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 Patient did require multiple units of packed RBC Reviewed: Care Plan, H&P, Labs, Medications, Previous Orders, Radiology Changes from previous H/P or p: No Changes Objective Vitals Vital Signs Date Time Temp Pulse Resp B/P (MAP) Pulse Ox O2 Delivery O2 Flow Rate FiO2 05/16/25 09:20 123/91 05/16/25 09:00 97.6 101 19 99 97.6 05/16/25 08:00 Room Air* 0 21 Intake/Output Intake and Output 05/16/25 07:00 Intake Total 1100 ml Output Total 1701 ml Balance -601 ml Intake Oral 1100 ml Output Urine Total 1700 ml Stool Total 1 ml Exam HEENT pupils are reactive Neck is supple CV is S1-S2 regular rate and rhythm SP but clear neck GI positive bowel sound Extremity no edema 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 Medications Current Medications Medications Dose Ordered Sig/Dorene Route Start Time Stop Time Status Last Admin Dose Admin Sucralfate 1 gm QID@0600,1130,1700,2200 PO 04/28/25 17:00 05/16/25 13:23 1 GM Dextrose 50 ml UD PRN IV 05/04/25 22:00 Diagnostic Test (Pha) 1 strip Q6HR 05/05/25 16:30 05/16/25 12:26 1 STRIP Insulin Human Lispro Q6HR SC 05/05/25 16:30 05/13/25 12:06 1 UNITS Amino Acids 0 ml @ 0 mls/hr PER PHARMACY IV 05/06/25 11:00 Levofloxacin/ Dextrose 100 ml @ 100 mls/hr DAILY IV 05/07/25 15:30 05/16/25 09:10 100 MLS/HR Nicotine 1 patch DAILY TD 05/11/25 10:00 05/16/25 09:11 1 PATCH Ondansetron HCl 4 mg Q8HPRN PRN IV 05/10/25 17:45 05/11/25 03:36 4 MG Furosemide 20 mg DAILY PO 05/13/25 10:00 05/16/25 09:20 20 MG Losartan Potassium 50 mg DAILY PO 05/14/25 10:00 05/16/25 09:20 50 MG Fat Emulsion Intravenous 200 ml/Sodium Chloride 20 meq/ Sodium Acetate 10 meq/Sodium Phosphate 20 meq/ Potassium Phosphate 66 meq/ Calcium Gluconate 2.3 meq/Magnesium Sulfate 12 meq/ Multivitamins 10 ml/Chromium/ Copper/Manganese/ Zinc 1 ml/Amino Acids/Dextrose 1,548.9462 ml @ 64 mls/hr [id number] IV 05/14/25 22:00 05/15/25 21:59 Cancel Pantoprazole Sodium 40 mg TID IV 05/14/25 22:00 05/16/25 14:00 40 MG Cefepime HCl 50 ml @ 12.5 mls/hr Q12HR IV 05/14/25 22:00 Cancel Azithromycin 250 ml @ 125 mls/hr DAILY@0800 IV 05/15/25 08:00 05/18/25 15:29 05/16/25 09:11 125 MLS/HR Fat Emulsion Intravenous 150 ml/Sodium Chloride 10 meq/ Sodium Acetate 10 meq/Potassium Phosphate 44 meq/ Calcium Gluconate 4.65 meq/ Magnesium Sulfate 10 meq/ Multivitamins 10 ml/Chromium/ Copper/Manganese/ Zinc 1 ml/Amino Acids/Dextrose 1,441 ml @ 60 mls/hr [id number] IV 05/15/25 22:00 05/16/25 21:59 05/15/25 22:15 60 MLS/HR Fat Emulsion Intravenous 150 ml/Sodium Chloride 20 meq/ Potassium Phosphate 22 meq/ Calcium Gluconate 4.65 meq/ Magnesium Sulfate 10 meq/ Multivitamins 10 ml/Chromium/ Copper/Manganese/ Zinc 1 ml/Amino Acids/Dextrose 1,433.5 ml @ 60 mls/hr [id number] IV 05/16/25 22:00 05/17/25 21:59 Acetaminophen/ Hydrocodone Bitart 1 tab Q4HPRN PRN PO 05/16/25 15:30 05/16/25 15:39 1 TAB Laboratory Results Laboratory Tests 05/14/25 09:49 05/16/25 05:28 Chemistry Test 05/16/25 05:28 Albumin 2.8 g/dL (3.2-4.8) L Calcium Level 7.6 mg/dL (8.7-10.4) L Magnesium Level 2.1 mg/dL (1.6-2.6) Phosphorus Level 3.1 mg/dL (2.4-5.1) Total Protein 5.4 g/dL (5.7-8.2) L LFT Test 05/16/25 05:28 Alanine Aminotransferase (ALT) 88 U/L (7-40) H Alkaline Phosphatase 100 U/L (46-116) Aspartate Amino Transferase (AST) 53 U/L (13-40) H Total Bilirubin 0.4 mg/dL (0.2-1.0) Urinalysis Test 04/27/25 23:27 Urine Color Colorless (Yellow) Urine Clarity Turbid (Clear) H Urine pH 6.0 (5.0-9.0) Urine Specific [place] 1.015 (1.001-1.035) Urine Protein 1+ (Negative) H Urine Ketones Negative (Negative) Urine Blood 1+ /uL (Negative) H Urine Nitrite Negative (Negative) Urine Bilirubin Negative (Negative) Urine Urobilinogen Normal mg/dL (Negative) Urine Leukocyte Esterase Negative /uL (Negative) Urine Glucose 1+ mg/dL (Normal) H Microbiology Microbiology Date/Time Source Procedure Growth Status 05/03/25 18:30 Blood Blood Culture - Final NO GROWTH AFTER 5 DAYS OF INCUBATION. Complete 05/03/25 13:35 Sputum Gram Stain - Final Complete 05/03/25 13:35 Respiratory Culture - Final Citrobacter amalonaticus Complete 05/02/25 04:21 Nose MRSA Screen - Final Complete Assessment/Plan Assessment/Plan 69-year-old male who initially presented to the hospital with black tarry stool found to have 1. Acute hemorrhagic symptomatic anemia status post multiple units of packed RBC 2. Upper GI bleed status post EGD showed large gastric ulcer 3. Status post coil embolization of gastroduodenal artery pseudoaneurysm 4. H pylori 5. Acute hypoxic respiratory failure status post intubation, currently extubated on minimal nasal supplemental oxygen -continue Protonix and Carafate, discontinue IV antibiotics, - ,we will treat H pylori with the p.o. antibiotics , start amoxicillin 1 g p.o. b.i.d. and clarithromycin 500 mg p.o. b.i.d. along with Protonix -no aspirin/Advil/ibuprofen/naproxen or any other NSAIDs. -follow up with the final stomach biopsy report, need close follow up with GI upon discharge. -taper off TPN. Plan discussed with: Patient, Son, Other My Orders Orders - LYNN FANG MD Procedure Category Date Status Time Hydrocodone-Acet PHA 05/16/25 In Process 5/325mg Tab ([place] 15:30 Date of Service: May 16, 2025 Billing Provider: LYNN FANG MD Common Visit Codes: [id number] INP/OBS CARE(HIGH) LYNN FANG MD May 16, 2025 17:38
[2025-05-16] MEDS: TPN PER PHARMACY IV NR (21:20)
[2025-05-16] MEDS: AMOXICILLIN TRIHYDRATE 250 MG CAP PO SCH (22:06)
[2025-05-17 01:00] VITALS: BP 104/61; PULSE 98; RESP 16; TEMP 98.2; O2SAT 96
[2025-05-17 05:00] VITALS: BP 107/64; PULSE 95; RESP 16; TEMP 98.4; O2SAT 95
[2025-05-17 06:21] LABS: Alkaline Phosphatase 100 U/L (46-116); Anion Gap 7 (5-15); BUN/Creatinine Ratio 29.6 (10.0-20.0); Carbon Dioxide 26 mmol/L (20-31); Chloride 104 mmol/L (98-107); Glucose 105 mg/dL (74-106); Magnesium 2.1 mg/dL (1.6-2.6); Potassium 4.7 mmol/L (3.5-5.1); Sodium 137 mmol/L (136-145)
[2025-05-17 06:22] LABS: Bilirubin, Total 0.3 mg/dL (0.2-1.0)
[2025-05-17 06:25] LABS: Alanine Aminotransferase 81 U/L (7-40); Albumin 3.0 g/dL (3.2-4.8); Blood Urea Nitrogen 29 mg/dL (9-23); Calcium 8.0 mg/dL (8.7-10.4); Total Protein 5.4 g/dL (5.7-8.2)
[2025-05-17 08:00] VITALS: PULSE 127; PULSE 90; RESP 18
[2025-05-17 09:26] VITALS: BP 127/55; PULSE 110; RESP 18; TEMP 98.4; O2SAT 99
[2025-05-17] MEDS ORDERED: PANT40TA2 PO (10:37)
[2025-05-17] MEDS ORDERED: LOSA-534 PO (10:37)
[2025-05-17] MEDS ORDERED: SUCR1SUS26 PO (10:37)
[2025-05-17] MEDS ORDERED: CLAR1TAB21 PO (10:37)
[2025-05-17] MEDS ORDERED: AMOX500T3 PO (10:37)
[2025-05-17 13:42] VITALS: BP 123/81; PULSE 110; RESP 17; TEMP 98; O2SAT 95
--- NOTE | 2025-05-17 14:38 | DVHPN2 ---
Assessment/Plan Assessment/Plan progress note 69 M admitted for melena, s/p scope, recurrent UGIB. HB AM 7.1. sudden change in status, patient diaphoretic, tachycardic and hypotensive. placed on trendelenburg, IV boluses. TLC placed in. large volume hematemesis and NGT showed blood. so far 800 cc in suction canister. d/w GI, IR and surg. plan for i r emblization, MTP to stabilize, possible need for emergent surgery. started on pressors. intubated for airway protection. was placed on pressors, stress dose steroids, now off pressors. H pylori positive. extubated, started on ice chips. nausea and vomiting with po intake. htn, failed scheduled iv, starting cardene, now off. diet advanced. seen today, jon keith. switch meds to po, dispo planning, c/w ambulation. physical exam aox3 clear breath sounds s1 s2 rrr abdomen soft no le edema, but thigh and UE edema labs ekg imaging reviewed POCUS done, FAST, no free fluid, subxyphoid heart looks hyperdynamic, IVC flat assessment and plan severe anemia req massive PRBC gastric ulcer, active bleeding s/p MARILIN embolization PNA, Citrobacter amalonaticus acute hypoxic RF rec mech vent acute metabolic encep hemorrhagic shock hypocalcemia tx related h pylori b/l cephalic thrombosis extubate c/w ampicilin, azithro, protonix, levoflox 2 large bore IV transfuse keep hb >8 IR for embolization IV bolus platelet, ffp protonix drip surg, GI on board calcium hold picc, possible oral feeding soon nicardipine goal SBP <150 dc tlc, dc crouch diet puree dvt ppx hold SCD condition critical prognosis poor full code Plan discussed with: Patient Date of Service: May 17, 2025 Billing Provider: DILCIA DANIEL MD Common Visit Codes: [id number] INP/OBS CARE(HIGH) DILCIA DANIEL MD May 17, 2025 14:38
--- NOTE | 2025-05-17 16:39 | DVHPN2 ---
Progress Note - Dictate Date Seen: May 17, 2025 Medical Necessity Reason Pt with a Central, PICC or Fol: Yes The following are medically ne: Ochoa Catheter Subjective No new complaints, patient tolerate a pureed diet Patient underwent physical therapy Pathology of the ulcer showed intestinal metaplasia and numerous H.pylori, there was no dysplasia or malignancy IR physician Dr. 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 vital signs Vital Sign Date Time Temp Pulse Resp B/P (MAP) Pulse Ox O2 Delivery O2 Flow Rate FiO2 05/17/25 13:42 98.0 110 17 123/81 (95) 95 98.0 05/17/25 08:00 Room Air* 0 21 Total Intake and Output 05/16/25 05/16/25 05/17/25 15:00 23:00 07:00 Intake Total 500 ml 240 ml Output Total 1300 ml 400 ml Balance -800 ml -160 ml medications Current Medications Medications Dose Ordered Sig/Dorene Route Start Time Stop Time Status Last Admin Dose Admin Sucralfate 1 gm QID@0600,1130,1700,2200 PO 04/28/25 17:00 05/17/25 12:20 1 GM Dextrose 50 ml UD PRN IV 05/04/25 22:00 Diagnostic Test (Pha) 1 strip Q6HR 05/05/25 16:30 05/17/25 12:17 1 STRIP Insulin Human Lispro Q6HR SC 05/05/25 16:30 05/17/25 12:16 1 UNITS Nicotine 1 patch DAILY TD 05/11/25 10:00 05/17/25 10:37 1 PATCH Ondansetron HCl 4 mg Q8HPRN PRN IV 05/10/25 17:45 05/11/25 03:36 4 MG Furosemide 20 mg DAILY PO 05/13/25 10:00 05/17/25 10:35 20 MG Losartan Potassium 50 mg DAILY PO 05/14/25 10:00 05/17/25 10:36 50 MG Fat Emulsion Intravenous 200 ml/Sodium Chloride 20 meq/ Sodium Acetate 10 meq/Sodium Phosphate 20 meq/ Potassium Phosphate 66 meq/ Calcium Gluconate 2.3 meq/Magnesium Sulfate 12 meq/ Multivitamins 10 ml/Chromium/ Copper/Manganese/ Zinc 1 ml/Amino Acids/Dextrose 1,548.9462 ml @ 64 mls/hr [id number] IV 05/14/25 22:00 05/15/25 21:59 Cancel Pantoprazole Sodium 40 mg TID IV 05/14/25 22:00 05/17/25 15:31 40 MG Cefepime HCl 50 ml @ 12.5 mls/hr Q12HR IV 05/14/25 22:00 Cancel Azithromycin 250 ml @ 125 mls/hr DAILY@0800 IV 05/15/25 08:00 05/18/25 15:29 05/17/25 10:34 125 MLS/HR Fat Emulsion Intravenous 150 ml/Sodium Chloride 20 meq/ Potassium Phosphate 22 meq/ Calcium Gluconate 4.65 meq/ Magnesium Sulfate 10 meq/ Multivitamins 10 ml/Chromium/ Copper/Manganese/ Zinc 1 ml/Amino Acids/Dextrose 1,433.5 ml @ 60 mls/hr [id number] IV 05/16/25 22:00 05/17/25 21:59 05/16/25 21:20 60 MLS/HR Acetaminophen/ Hydrocodone Bitart 1 tab Q4HPRN PRN PO 05/16/25 15:30 05/16/25 15:39 1 TAB Amoxicillin 1,000 mg BID PO 05/16/25 22:00 05/17/25 10:38 1,000 MG objective aox3 clear breath sounds s1 s2 rrr abdomen soft no le edema, but thigh and UE edema laboratory and microbiology Laboratory Tests 05/17/25 05:19 05/14/25 09:49 Test 05/17/25 05:19 Range/Units Serum Glucose 105 74-106 mg/dL Problems(with codes): (1) GI bleed (2) Abdominal pain (3) Blood loss anemia (4) Hemorrhagic shock (5) Gastric ulcer (6) H pylori ulcer Prognosis Plan Check repeat CBC as the last H&H was done on the Continue pureed diet Continue Protonix and Carafate Discontinue aspirin NSAIDs Patient will need to continue oral antibiotics for a few more days more days Outpatient follow up with me in 4-6 weeks to discuss elective repeat endoscopy in the future and elective colonoscopy for screening Dietary Evaluation Review Comments: Nutrition Recommendation: 1) TPN/PN if NPO>7 days 2) Advance to soft diet as medically feasible 3) Monitor NPO status, lab values, weight trend, and I/O Expected Outcomes/Goals: To meet >75% estimated needs GI symptoms to improve Fu 2-3 days Plan discussed with: Patient CC Plasma Assessment Blood Product Administration S: 181 JANETT JACOBS MD May 17, 2025 16:39
[2025-05-17 17:11] VITALS: BP 129/83; PULSE 106; RESP 17; TEMP 98.1; O2SAT 95
== END 2025-05-17 17:24 | disposition left against medical advice (07) | DRG 853 ==
LOC: ER 21:32 → EDBD 21:32 → OVERFLOW 04-28 00:38 → TELE-EAST 04-28 02:52 → TELE-CENTR 05-01 17:54 → DOU 05-01 22:50 → ICU WEST 05-03 16:30 → TELE-CENTR 05-13 16:12 → CENTRAL 05-17 15:58
PROVIDERS: ADMIT Student in an Organized Health Care Education/Training Program; ATTEND Student in an Organized Health Care Education/Training Program
PROC: 0DB78ZX Excision of Stomach, Pylorus, Via Natural or Artificial Opening Endoscopic, Diagnostic (ICD-10-PCS; 2025-04-28)
PROC: 0DB68ZX Excision of Stomach, Via Natural or Artificial Opening Endoscopic, Diagnostic (ICD-10-PCS; 2025-04-28)
PROC: 30233N1 Transfusion of Nonautologous Red Blood Cells into Peripheral Vein, Percutaneous Approach (ICD-10-PCS; 2025-04-28)
PROC: 0DB98ZX Excision of Duodenum, Via Natural or Artificial Opening Endoscopic, Diagnostic (ICD-10-PCS; principal; 2025-04-28 13:47)
PROC: 05HB33Z Insertion of Infusion Device into Right Basilic Vein, Percutaneous Approach (ICD-10-PCS; 2025-05-02)
PROC: B54MZZA Ultrasonography of Right Upper Extremity Veins, Guidance (ICD-10-PCS; 2025-05-02)
PROC: 30233K1 Transfusion of Nonautologous Frozen Plasma into Peripheral Vein, Percutaneous Approach (ICD-10-PCS; 2025-05-02)
PROC: 30233R1 Transfusion of Nonautologous Platelets into Peripheral Vein, Percutaneous Approach (ICD-10-PCS; 2025-05-02)
PROC: 04V33DZ Restriction of Hepatic Artery with Intraluminal Device, Percutaneous Approach (ICD-10-PCS; 2025-05-03)
PROC: B4121ZZ Fluoroscopy of Hepatic Artery using Low Osmolar Contrast (ICD-10-PCS; 2025-05-03)
PROC: 0BH18EZ Insertion of Endotracheal Airway into Trachea, Via Natural or Artificial Opening Endoscopic (ICD-10-PCS; 2025-05-03)
PROC: 5A1955Z Respiratory Ventilation, Greater than 96 Consecutive Hours (ICD-10-PCS; 2025-05-03)
PROC: B4101ZZ Fluoroscopy of Abdominal Aorta using Low Osmolar Contrast (ICD-10-PCS; 2025-05-03)
PROC: 02HV33Z Insertion of Infusion Device into Superior Vena Cava, Percutaneous Approach (ICD-10-PCS; 2025-05-03)
PROC: 03HY32Z Insertion of Monitoring Device into Upper Artery, Percutaneous Approach (ICD-10-PCS; 2025-05-03)
PROC: 0TJB8ZZ Inspection of Bladder, Via Natural or Artificial Opening Endoscopic (ICD-10-PCS; 2025-05-04)
DX: A41.9 Sepsis, unspecified organism (principal); I46.9 Cardiac arrest, cause unspecified; J15.69 Pneumonia due to other Gram-negative bacteria; J96.01 Acute respiratory failure with hypoxia; R57.8 Other shock; R65.21 Severe sepsis with septic shock; K25.4 Chronic or unspecified gastric ulcer with hemorrhage; J69.0 Pneumonitis due to inhalation of food and vomit; E46 Unspecified protein-calorie malnutrition; I50.30 Unspecified diastolic (congestive) heart failure; I82.623 Acute embolism and thrombosis of deep veins of upper extremity, bilateral; D62 Acute posthemorrhagic anemia; E87.0 Hyperosmolality and hypernatremia; I82.613 Acute embolism and thrombosis of superficial veins of upper extremity, bilateral; N17.9 Acute kidney failure, unspecified; I72.8 Aneurysm of other specified arteries; T83.098A Other mechanical complication of other urinary catheter, initial encounter; K29.70 Gastritis, unspecified, without bleeding; B96.81 Helicobacter pylori [H. pylori] as the cause of diseases classified elsewhere; I11.0 Hypertensive heart disease with heart failure; K76.9 Liver disease, unspecified; E83.51 Hypocalcemia; Z20.822 Contact with and (suspected) exposure to COVID-19; N36.5 Urethral false passage; D69.6 Thrombocytopenia, unspecified; E88.09 Other disorders of plasma-protein metabolism, not elsewhere classified; K31.A0 Gastric intestinal metaplasia, unspecified; F17.200 Nicotine dependence, unspecified, uncomplicated; Z91.119 Patient's noncompliance with dietary regimen due to unspecified reason; Y84.6 Urinary catheterization as the cause of abnormal reaction of the patient, or of later complication, without mention of misadventure at the time of the procedure; Y92.89 Other specified places as the place of occurrence of the external cause; Z68.22 Body mass index [BMI] 22.0-22.9, adult
CPT/HCPCS: 36415; 36430; 36556; 36600; 36620; 37243; 71045; 74018; 74176; 80053; 80202; 80307; 81003; 82270; 82310; 82805; 82962; 83036; 83605; 83690; 83735; 83880; 84100; 84132; 84478; 84484; 85007; 85014; 85018; 85025; 85027; 85384; 85610; 85730; 86850; 86900; 86901; 86920; 87040; 87070; 87077; 87081; 87186; 87205; 87426; 87804; 93005; 93306; 93970; 94002; 94003; 94640; 97110; 97116; 97163; 97530; 99152; 99291; C1889; C1894; G0378; J0169; J1756; J1815; J1885; J1956; J2185; J2405; J2470; J2543; J2704; J3480; J7060; J7131; P9047